=== PATIENT | female | born 1960 | race American Indian/Alaskan Native ===

== ENCOUNTER 2016-08-27 03:38 | Inpatient (IN) | payer MEDICARE ==
[2016-08-27] MEDS ORDERED: TYLENOL PO ONE (03:48)
--- NOTE | 2016-08-27 04:00 | Emergency Department Report ---
HPI - General Chief Complaint: Dyspnea/Respdistress Time Seen by Provider: 08/27/16 03:50 - HPI HPI: Room 23 The patient is a 56-year-old female presenting with a chief complaint of shortness of breath. Patient states her symptoms began 3 days ago with shortness of breath and productive cough. Patient denies chest pain. EMS reports the patient had a syncopal episode today secondary to her shortness of breath. EMS was called and patient was placed on CPAP. In the ED the patient continues complaint of shortness of breath Location: Lungs Duration: 3 days Quality: Shortness of breath Severity: Severe Modifying factors: [see above] Context: [see above] Mode of transportation: [not driving] ED Past Medical Hx - Past Medical History Previous Medical History?: Yes Hx Hypertension: Yes Hx Diabetes: Yes (medically induced per pt) Hx GERD: Yes Hx Renal Disease: Yes (acute on chronic renal insufficiency) Hx Asthma: Yes Hx COPD: Yes (2 L O2) Hx HIV: No Additional medical history: pneumonia - Surgical History Past Surgical History?: No - Family History Family history: no significant - Social History Smoking Status: Former Smoker Substance Use Type: None - Medications Home Medications: Home Medications Medication Instructions Recorded Confirmed Last Taken Type ALPRAZolam [Xanax TAB] 0.5 mg PO TID PRN 08/27/16 08/27/16 08/27/16 History Citalopram [celeXA] 20 mg PO QDAY 08/27/16 08/27/16 08/27/16 History Ibuprofen [Motrin] 800 mg PO Q8HR PRN 08/27/16 08/27/16 08/27/16 History Meloxicam 15 mg PO QDAY 08/27/16 08/27/16 08/27/16 History Montelukast [Singulair] 10 mg PO QPM 08/27/16 08/27/16 08/27/16 History Verapamil ER [Calan Sr] 240 mg PO QDAY 08/27/16 08/27/16 08/27/16 History predniSONE [Deltasone] 10 mg PO QDAY 08/27/16 08/27/16 08/27/16 History ED Review of Systems ROS: Stated complaint: TERENCE Other details as noted in HPI Comment: All other systems reviewed and negative Constitutional: fever Eyes: denies: eye pain, eye discharge, vision change Respiratory: cough, shortness of breath Cardiovascular: denies: chest pain Endocrine: no symptoms reported Gastrointestinal: denies: abdominal pain, nausea, diarrhea Genitourinary: dysuria. denies: urgency, discharge Musculoskeletal: denies: back pain, joint swelling, arthralgia Skin: denies: rash, lesions Neurological: other (syncope) Psychiatric: denies: anxiety, depression Hematological/Lymphatic: as per HPI Physical Exam - Physical Exam Vital Signs: Vital Signs 08/27/16 03:40 Temperature 100.1 F H Pulse Rate 146 H Respiratory 20 Rate Blood Pressure 120/53 O2 Sat by Pulse 100 Oximetry Physical Exam: GENERAL: The patient is well-developed well-nourished female lying on stretcher with CPAP in place with obvious respiratory distress HEENT: Normocephalic. Atraumatic. Extraocular motions are intact. NECK: Supple. No meningitic signs are noted. There is no adenopathy noted. CHEST/LUNGS: Rhonchi throughout. Moderate respiratory distress HEART/CARDIOVASCULAR: Regular. There is tachycardia. There is no gallop rub or murmur. ABDOMEN: Abdomen is soft, nontender. Patient has normal bowel sounds. There is no abdominal distention. SKIN: There is no rash. There is no edema. There is no diaphoresis. NEURO: The patient is awake, alert, and oriented. The patient is cooperative. The patient has normal speech MUSCULOSKELETAL: There is no evidence of acute injury. ED Course Vital Signs 08/27/16 03:40 Temperature 100.1 F H Pulse Rate 146 H Respiratory 20 Rate Blood Pressure 120/53 O2 Sat by Pulse 100 Oximetry - Reevaluation(s) Reevaluation #1: 08/27/16 04:21 Patient states she feels improved. Patient on BiPAP texting on cell phone ED Medical Decision Making - Lab Data Result diagrams: 08/27/16 03:55 08/27/16 03:55 Laboratory Tests 08/27/16 08/27/16 08/27/16 03:55 03:55 03:55 WBC 9.4 RBC 4.76 Hgb 12.7 Hct 40.0 MCV 84 MCH 27 L MCHC 32 RDW 15.3 H Plt Count 228 Lymph % (Auto) 7.6 L [place] % (Auto) 3.5 Eos % (Auto) 0.3 Baso % (Auto) 0.4 Lymph # 0.7 L [place] # 0.3 Eos # 0.0 Baso # 0.0 Seg Neutrophils % 88.2 H Seg Neutrophils # 8.3 H PT 13.6 INR 1.05 APTT 29.3 Sodium 140 Potassium 3.6 Chloride 98.1 Carbon Dioxide 29 Anion Gap 17 BUN 19 H Creatinine 0.7 Estimated GFR > 60 BUN/Creatinine Ratio 27.14 Glucose 137 H Calcium 7.9 L Total Creatine Kinase CK-MB (CK-2) CK-MB (CK-2) Rel Index Troponin T 0.072 H NT-Pro-B Natriuret Pep 08/27/16 03:55 WBC RBC Hgb Hct MCV MCH MCHC RDW Plt Count Lymph % (Auto) [place] % (Auto) Eos % (Auto) Baso % (Auto) Lymph # [place] # Eos # Baso # Seg Neutrophils % Seg Neutrophils # PT INR APTT Sodium Potassium Chloride Carbon Dioxide Anion Gap BUN Creatinine Estimated GFR BUN/Creatinine Ratio Glucose Calcium Total Creatine Kinase 248 H CK-MB (CK-2) 4.7 H CK-MB (CK-2) Rel Index 1.8 Troponin T NT-Pro-B Natriuret Pep 1037 H - EKG Data -: EKG Interpreted by Me EKG shows normal: sinus rhythm Rate: tachycardia (146 bpm) - EKG Data When compared to previous EKG there are: no significant change Interpretation: unchanged when compared t (12/18/2013) - Radiology Data Radiology results: image reviewed (chest x-ray) interpreted by me: Chest x-ray-right lower lobe atelectasis/possible early infiltrate - Differential Diagnosis pneumonia, COPD exacerbation, UTI, PE Critical care attestation.: If time is entered above; I have spent that time in minutes in the direct care of this critically ill patient, excluding procedure time. ED Disposition Clinical Impression: COPD exacerbation, Sinus tachycardia, Shortness of breath, CHF (congestive heart failure), Elevated troponin Disposition: OP ADMITTED IP TO THIS HOSP Is pt being admited?: Yes Does the pt Need Aspirin: Yes Condition: Serious Instructions: Chronic Obstructive Pulmonary Disease (ED) Referrals: PRIMARY CARE, [Primary Care Provider] - 3-5 Days Time of Disposition: 04:56 (case discussed with Dr. Cummins. CT chest pending)
[2016-08-27] MEDS ORDERED: NACL 0.9% 1000 ML 1,000 ML IV ONE (04:21)
[2016-08-27 04:22] LABS: Basophils % (Auto) 0.4 % (0.0-1.8); Eosinophils % (Auto) 0.3 % (0.0-4.3); Hemoglobin 12.7 gm/dl (10.1-14.3); Mean Corpuscular HGB Conc 32 % (30-34); Mean Corpuscular Hemoglobin 27 pg (28-32); Mean Corpuscular Volume 84 fl (79-97); Platelet Count 228 K/mm3 (140-440); Red Blood Count 4.76 M/mm3 (3.65-5.03); Red Cell Distribution Width 15.3 % (13.2-15.2); White Blood Count 9.4 K/mm3 (4.5-11.0)
[2016-08-27 04:31] LABS: INR 1.05 (0.87-1.13)
[2016-08-27 04:32] LABS: Partial Thromboplastin Time 29.3 Sec. (24.2-36.6)
[2016-08-27 04:41] LABS: Anion Gap 17 mmol/L; BUN/Creatinine Ratio 27.14; Blood Urea Nitrogen 19 mg/dL (7-17); Calcium 7.9 mg/dL (8.4-10.2); Carbon Dioxide 29 mmol/L (22-30); Chloride 98.1 mmol/L (98-107); Glucose 137 mg/dL (65-100); Potassium 3.6 mmol/L (3.6-5.0); Sodium 140 mmol/L (137-145)
[2016-08-27 04:43] LABS: Creatine Kinase MB 4.7 ng/mL (0.0-4.0)
[2016-08-27] MEDS ORDERED: NACL ONE (04:47)
[2016-08-27] MEDS ORDERED: ASPIRIN PO ONE (04:57)
[2016-08-27 06:00] LABS: Cholesterol 122 mg/dL (50-199); HDL Cholesterol 49 mg/dL (40-59); LDL Cholesterol,Direct 60 mg/dL (50-130); Triglycerides 65 mg/dL (2-149)
[2016-08-27] MEDS ORDERED: ZOFRAN IV PRN (06:24)
[2016-08-27] MEDS ORDERED: MILK OF MAGNESIA PO PRN (06:24)
[2016-08-27] MEDS ORDERED: DULCOLAX PR PRN (06:24)
[2016-08-27] MEDS ORDERED: TYLENOL PO PRN (06:24)
[2016-08-27] MEDS ORDERED: PERCOCET 5/325 PO PRN (06:24)
[2016-08-27 06:33] LABS: ISTAT Base Excess 4; ISTAT HCO3 30.5; ISTAT PCO2 61.7 (35-45); ISTAT PH 7.301 (7.35-7.45); ISTAT PO2 113 (80-105); ISTAT SO2 98; ISTAT TCO2 32
[2016-08-27] MEDS ORDERED: DUONEB 0.5 MG-3 MG/3 ML SOLN IH PRN (06:34)
[2016-08-27] MEDS ORDERED: MOTRIN PO PRN (06:36)
[2016-08-27] MEDS ORDERED: PROVENTIL IH PRN (06:45)
[2016-08-27] MEDS ORDERED: SODIUM CHLORIDE FLUSH SYRINGE 10 ML IV PRN (06:48)
--- NOTE | 2016-08-27 06:48 | Event Note ---
Date: 08/27/16 See H/p in reports Acuye resp failure with hypercapnia Copd exacerbation HTN Syncope High Troponin High BNP THONG Depression Check Stress test and Echo
--- NOTE | 2016-08-27 06:59 | Cat Scan Report ---
FINAL REPORT EXAM: CT ANGIO CHEST HISTORY: shortness of breath, tachycardia, syncope TECHNIQUE: CT angiography of the chest was performed. 100 cc Omnipaque 350 IV was administered. Coronal and sagittal reformatted images were obtained. PRIORS: 12/21/2013 FINDINGS: There is no aortic dissection seen. There are no filling defects seen within the pulmonary arterial circulation to suggest pulmonary embolism. There is no significant mediastinal or hilar mass seen. There is marked emphysema. There is a spiculated mass in the left upper lobe which is concerning for malignancy. It measures about 1.7 x 1.5 cm. There is some scarring versus atelectasis in the lateral aspect of the right upper lobe. This is a new finding. There atelectasis of the right middle lobe.. I cannot exclude endobronchial lesion. There is no pleural effusion or pneumothorax seen. Upper abdominal images demonstrate a nonspecific right adrenal gland mass. It measures 1.9 cm largest dimension, enlarged from 1.5 cm. There is likely cholelithiasis. IMPRESSION: There is no pulmonary embolism or aortic dissection seen. 1.7 x 1.5 cm spiculated mass in the left upper lobe is concerning for malignancy. There is right middle lobe atelectasis. This raises concern for endobronchial lesion. Marked emphysema. 1.9 cm right adrenal gland mass is slightly larger as compared to the prior. This is nonspecific. Probable cholelithiasis.
--- NOTE | 2016-08-27 07:08 | Admit Criteria Form ---
Admission Criteria Documentation: RESPIRATORY FAILURE GRG Clinical Indications for Admission to Inpatient Care (Place 'X' for any and all applicable criteria): Hospital admission is needed for appropriate care of the patient because of acute respiratory failure or insufficiency as indicated by ANY ONE of the following(1)(2)(3)(4)(5)(6)(7)(8): [X]I. Mechanical ventilation needed (acute invasive or noninvasive) [X]II. Severe ventilation deficit as indicated by ANY ONE of the following (9) [X]a) Respiratory acidosis (pH less than 7.32 and partial pressure of carbon dioxide greater than 40 mm Hg (5.3 kPa)) [X]b) Partial pressure of carbon dioxide greater than 44 mm Hg (5.9 kPa ) (new) [ ]c) Airflow measurements less than 25% of predicted (eg, peak expiratory flow rate less than 100 L/minute) [ ]d) Forced vital capacity less than 15 mL/kg of ideal body weight, or 50% decrease in vital capacity from baseline [ ]III. Noncardiac pulmonary edema not resolving with rapid emergency treatment (8) [ ]IV. Severe respiratory distress as indicated by ANY ONE of the following: [ ]a) Severe tachypnea (respiratory rate greater than 30, greater than 45 for 6-month-old, greater than 60 for ) [ ]b) Severe hypoxemia (partial pressure of oxygen less than 50 mm Hg ( 6.7 kPa) on greater than 50% oxygen or partial pressure of oxygen to FIO2 ratio less than 200) [ ]c) Mental status deterioration from respiratory disease [ ]V. Airway obstruction or inadequate protection [A](10)(11) The original [employer] content created by [employer] has been revised. The portions of the content which have been revised are identified through the use of italic text or in bold, and [facility] [employer] has neither reviewed nor approved the modified material. All other unmodified content is copyright [employer]. Please see references footnoted in the original [employer] edition 2016 Admission Criteria Met: Yes
[2016-08-27 07:34] LABS: Bilirubin,Urine NEG (Negative); Blood,Urine NEG (Negative); Granular Casts,Urine 3 /LPF; Ketones,Urine NEG (Negative); Leukocyte Esterase,Urine NEG (Negative); Mucus,Urine FEW /HPF; Nitrite,Urine NEG (Negative); Urobilinogen,Urine < 2.0 mg/dL (<2.0)
[2016-08-27] MEDS ORDERED: DUONEB 0.5 MG-3 MG/3 ML SOLN IH ONE (08:18)
--- NOTE | 2016-08-27 08:43 | History and Physical Report ---
CHIEF COMPLAINT: Increasing shortness of breath for 3 days. HISTORY OF PRESENT ILLNESS: A 56-year-old -[place] female with history of hypertension and COPD currently smoker comes in for increasing shortness of breath of three days' duration. Cough productive of mucoid sputum. No fever. No chills. Increasing wheezing for the last 3 days. The patient apparently passed out for a couple of seconds secondary to shortness of breath. No chest pain. No exacerbating or relieving factors. The patient has been using bronchodilators, but no relief. PAST MEDICAL HISTORY: As mentioned hypertension, medically-induced diabetes, probably steroid induced, gastroesophageal reflux disease, asthma, and pneumonia in the past. PAST SURGICAL HISTORY: None. FAMILY HISTORY: Hypertension. SOCIAL HISTORY: Smokes about half a pack a day. CURRENT MEDICATIONS: Xanax 0.5 three times a day, meloxicam 15 mg once a day, Singulair 10 mg p.o. daily, verapamil 240 mg p.o. daily, prednisone, and Deltasone 10 mg p.o. daily. REVIEW OF SYSTEMS: No fever. No chills. No weight loss. No weight gain. HEENT: No sore throat. No postnasal drip. CARDIOVASCULAR AND RESPIRATORY SYSTEM: As mentioned in history of present illness increasing shortness of breath for the last 3 days. Cough productive of mucoid sputum. No chest pain. Syncope one episode. GI: No nausea. No vomiting. No diarrhea. MUSCULOSKELETAL: No joint pains. CENTRAL NERVOUS SYSTEM: syncope one episode. NEUROLOGIC: No focal deficits. SKIN: No rashes. LYMPHATIC SYSTEM: No easy bruising. No lymphedema. PSYCHIATRIC: No depression. No anxiety. A 14-point review of systems was done. PHYSICAL EXAMINATION: GENERAL: Middle-aged female cooperative during examination, on BiPAP in the Emergency Room. VITAL SIGNS: Temperature is 100.1, pulse is 146, respirations 20, blood pressure is 120/53, and sats 100%. HEENT: Unremarkable. Pupils equal and reactive. NECK: Supple. Accessory muscles of respiration are prominent. LUNGS: Bilateral inspiratory and expiratory rhonchi present. Good air entry. CARDIOVASCULAR: S1 and S2 heard. No gallop. No murmur. No rub. Apical impulse in left fifth intercostal space and midclavicular line. ABDOMEN: Soft and benign. No hepatosplenomegaly. No guarding. No rigidity. Hernial orifices are normal. EXTREMITIES: Good pedal pulses. No pedal edema. CENTRAL NERVOUS SYSTEM: Alert and oriented x 4. Nonfocal exam. SKIN: Normal. LABORATORY DATA: White count is 9400, H and H is 12.7 and 40.2, and platelet count is 228,000. Blood gas significant for pH of 7.30, pCO2 of 61.7, pO2 113, bicarb of 30.5, sodium 140, potassium of 3.6, chloride of 98.1, bicarbonate 29, BUN and creatinine 19 and 0.7, glucose is 137, calcium 7.9, troponin 0.072, BNP is 1037, and TSH is 0.244. Free T4 was 1.28. EKG shows sinus tachycardia. Heart rate of 146 per minute. Left axis deviation. ST or T-wave abnormalities. Confidential acute ischemia. ASSESSMENT AND PLAN: 1. Acute respiratory failure with hypercapnia. Continue BiPAP. Continue DuoNeb q.6 [id number] and q.3 p.r.n. and also IV Solu-Medrol 60 mg q.8 and IV Levaquin 750 mg q.24. 2. Chronic obstructive pulmonary disease with exacerbation. Same as above. Continue bronchodilators, antibiotics, and steroids. 3. Hypertension. Continue verapamil 240 mg p.o. daily. 4. Asthma. Continue Singulair 10 mg p.o. q. p.m. 5. Depression. Continue citalopram 20 mg p.o. daily. 6. Anxiety disorder. Continue Xanax 0.5 t.i.d. 7. Arthritis. Continue Meloxicam 15 mg p.o. daily. 8. Syncope secondary to vasovagal and secondary to pressured acute respiratory failure. We will check only carotid duplex scan. No stress test at this point. 9. Nicotine dependence and NicoDerm past. 10. Deep venous thrombosis prophylaxis, Lovenox 40 mg subcutaneous daily. JOB# [id number] VSM/NTS
[2016-08-27 08:47] LABS: Creatine Kinase MB 6.5 ng/mL (0.0-4.0)
[2016-08-27] MEDS: DUONEB 0.5 MG-3 MG/3 ML SOLN IH SCH ×3 (09:19→19:44)
--- NOTE | 2016-08-27 09:34 | Event Note ---
Date: 08/27/16 Patient with COPD on home oxygen presents with shortness of breath. She is diagnosed with acute on chronic respiratory failure secondary to COPD exacerbation. She also has elevated troponin but stress test cannot be done today because she is on BiPAP. She was seen and examined. She is currently on BiPAP. Pulmonology consulted. We will also consult cardiology.
[2016-08-27] MEDS: LEVAQUIN 750MG/150ML 750 MG/150 ML BAG IV SCH (11:15)
[2016-08-27] MEDS: celeXA PO SCH (13:27)
--- NOTE | 2016-08-27 13:31 | Event Note ---
Date: 08/27/16 Pt states she has been seen in the past in clinic by Dr. Garcia. Consult deferred. [facility] notified. Mitchell OVALLE NP / DR. SMITH
[2016-08-27 14:11] LABS: Creatine Kinase MB 5.7 ng/mL (0.0-4.0)
--- NOTE | 2016-08-27 15:32 | Consultation ---
History of Present Illness Consult date: 08/27/16 Consult reason: elevated troponin History of present illness: This is a 56yr old woman with a history of Sleep apnea noncompliant with her Cpap machine, COPD on home oxygen and Hypertension. Patient also continues to smoke. She was brought in with shortness of breath requiring Bipap therapy. Daughter at bedside reports the patient shortness of breath has progressively worsened over the last few days. This morning, daughter at bedside states the patient could not catch her breath and had a syncopal episode. Cardiac consultation is requested for mild elevation of troponin of 0.07. Cardiac enzymes are normal with a CK/MB of 4.7 and relative index of 1.8. A 12 lead ECG done on presentation shows a sinus tachycardiac with PACs. She denies chest pain. There is no prior cardiac history or recent cardiac workup. A persantine thallium stress was ordered by the primary team for today but this was held as the patient remains on bipap therapy. Past History Past Medical History: COPD Medications and Allergies Allergies Allergy/AdvReac Type Severity Reaction Status Date / Time No Known Allergies Allergy Verified 08/27/16 03:49 Home Medications Medication Instructions Recorded Confirmed Last Taken Type ALPRAZolam [Xanax TAB] 0.5 mg PO TID PRN 08/27/16 08/27/16 08/27/16 History Citalopram [celeXA] 20 mg PO QDAY 08/27/16 08/27/16 08/27/16 History Ibuprofen [Motrin] 800 mg PO Q8HR PRN 08/27/16 08/27/16 08/27/16 History Meloxicam 15 mg PO QDAY 08/27/16 08/27/16 08/27/16 History Montelukast [Singulair] 10 mg PO QPM 08/27/16 08/27/16 08/27/16 History Verapamil ER [Calan Sr] 240 mg PO QDAY 08/27/16 08/27/16 08/27/16 History predniSONE [Deltasone] 10 mg PO QDAY 08/27/16 08/27/16 08/27/16 History Active Meds: Active Medications Acetaminophen (Tylenol) 650 mg PO Q4H PRN PRN Reason: Pain MILD(1-3)/Fever >100.5/BLISS Albuterol (Proventil) 2.5 mg IH Q3HRT PRN PRN Reason: Wheezing Albuterol/Ipratropium (Duoneb 0.5 Mg-3 Mg/3 Ml Soln) 1 ampul IH Q6HRT [facility] Last Admin: 08/27/16 14:33 Dose: 1 ampul Alprazolam (Xanax) 0.5 mg PO TID PRN PRN Reason: Anxiety Bisacodyl (Dulcolax) 10 mg MT QDAY PRN PRN Reason: Constipation unrelieved by MOM Citalopram Hydrobromide (Celexa) 20 mg PO QDAY [facility] Last Admin: 08/27/16 13:27 Dose: 20 mg Hydromorphone HCl (Dilaudid) 0.5 mg IV Q3H PRN PRN Reason: Pain , Severe (7-10) Levofloxacin/Dextrose (Levaquin 750mg/150ml) 750 mg in 150 mls @ 100 mls/hr IV Q24HR [facility] PRN Reason: Protocol Last Admin: 08/27/16 11:15 Dose: 100 mls/hr Ibuprofen (Motrin) 800 mg PO Q8HR PRN PRN Reason: Pain Magnesium Hydroxide (Milk Of Magnesia) 30 ml PO Q4H PRN PRN Reason: Constipation Methylprednisolone Sodium Succinate (Solu-Medrol) 60 mg IV Q8HR [facility] Last Admin: 08/27/16 13:27 Dose: 60 mg Montelukast Sodium (Singulair) 10 mg PO QPM [facility] Ondansetron HCl (Zofran) 4 mg IV Q8H PRN PRN Reason: N/V unrelieved by Reglan Oxycodone/Acetaminophen (Percocet 5/325) 1 tab PO Q6H PRN PRN Reason: Pain, Moderate (4-6) Sodium Chloride (Sodium Chloride Flush Syringe 10 Ml) 10 ml IV PRN PRN PRN Reason: LINE FLUSH Verapamil HCl (Calan Sr) 240 mg PO QDAY [facility] Zolpidem Tartrate (Ambien) 5 mg PO QHS PRN PRN Reason: Insomnia Physical Examination Vital Signs Pulse Ox 96 08/27/16 03:34 General appearance: no acute distress HEENT: Positive: PERRL Neck: Positive: trachea midline Cardiac: Positive: Reg Rate and Rhythm Results 08/27/16 03:55 08/27/16 03:55 Cardiac Enzymes 05/01/17 05/01/17 Range/Units 08:13 13:17 CK-MB (CK-2) 6.5 H 5.7 H (0.0-4.0) ng/mL Assessment and Plan Acute respiratory failure COPD exacerbation on home oxygen Syncope likely vasovagal s/t respiratory failure Hypertension Nonspecific elevated troponin Left upper lobe mass Recommendations: We will get an echocardiogram for LVEF assessment. Pulmonary evaluation and treatment.
[2016-08-27] MEDS: SINGULAIR PO SCH (17:11)
[2016-08-27] MEDS: CALAN SR PO SCH (17:11)
[2016-08-27] MEDS: LOVENOX SUB-Q SCH (21:20)
[2016-08-28] MEDS: DUONEB 0.5 MG-3 MG/3 ML SOLN IH SCH ×4 (02:27→20:25)
[2016-08-28 05:50] LABS: Hematocrit 38.6 % (30.3-42.9); Hemoglobin 12.2 gm/dl (10.1-14.3); Mean Corpuscular HGB Conc 32 % (30-34); Mean Corpuscular Hemoglobin 27 pg (28-32); Mean Corpuscular Volume 84 fl (79-97); Platelet Count 208 K/mm3 (140-440); Red Blood Count 4.61 M/mm3 (3.65-5.03); Red Cell Distribution Width 15.7 % (13.2-15.2); White Blood Count 8.1 K/mm3 (4.5-11.0)
[2016-08-28 06:13] LABS: Albumin 3.5 g/dL (3.9-5); Alkaline Phosphatase 57 units/L (35-129); Anion Gap 16 mmol/L; BUN/Creatinine Ratio 34.28; Bilirubin,Total < 0.20 mg/dL (0.1-1.2); Blood Urea Nitrogen 24 mg/dL (7-17); Calcium 8.5 mg/dL (8.4-10.2); Carbon Dioxide 31 mmol/L (22-30); Chloride 101.6 mmol/L (98-107); Glucose 156 mg/dL (65-100); Sodium 144 mmol/L (137-145); Total Protein 6.9 g/dL (6.3-8.2)
[2016-08-28 06:42] LABS: Alanine Aminotransferase < 5 units/L (7-56); Potassium 4.7 mmol/L (3.6-5.0)
[2016-08-28 07:31] LABS: Anisocytosis 1+; Basophils % (Manual) 0 % (0.0-1.8); Blastocytes % (Manual) 0 %; Diff Status Complete; Eosinophils % (Manual) 0 % (0.0-4.3); Polychromasia Few
[2016-08-28] MEDS: LEVAQUIN 750MG/150ML 750 MG/150 ML BAG IV SCH (10:06)
[2016-08-28] MEDS: celeXA PO SCH (10:16)
--- NOTE | 2016-08-28 11:22 | Progress Note ---
Assessment and Plan Acute respiratory failure COPD exacerbation on home oxygen Syncope likely vasovagal s/t respiratory failure Hypertension Nonspecific elevated troponin Spiculated Left upper lobe mass concerning for malignancy Tobacco abuse Recommendations: We will get an echocardiogram. Pulmonary evaluation and treatment. Otherwise, conservative cardiac management. Subjective Date of service: 08/28/16 Interval history: Patient remains on Bipap therapy. Objective Vital Signs Temp Pulse Pulse Pulse Resp Resp BP 08/28/16 09:00 89 32 H 132/56 08/28/16 08:54 08/28/16 08:45 97.6 F 92 H 18 08/28/16 08:30 99 H 18 08/28/16 08:29 99 H 18 08/28/16 04:00 98.1 F 101 H 18 08/28/16 02:37 87 20 08/28/16 02:27 87 19 08/28/16 02:00 105 H 08/28/16 00:18 98.2 F 133 H 18 08/27/16 20:00 97.8 F 99 H 18 08/27/16 19:57 103 H 20 08/27/16 19:51 96 H 20 08/27/16 19:48 96 H 16 08/27/16 17:56 97.5 F L 96 H 18 BP Pulse Ox 08/28/16 09:00 90 08/28/16 08:54 96 08/28/16 08:45 125/79 95 08/28/16 08:30 97 08/28/16 08:29 08/28/16 04:00 123/79 97 08/28/16 02:37 08/28/16 02:27 08/28/16 02:00 08/28/16 00:18 131/105 97 08/27/16 20:00 127/72 98 08/27/16 19:57 08/27/16 19:51 97 08/27/16 19:48 08/27/16 17:56 127/77 100 - Physical Examination General: No Apparent Distress HEENT: Positive: PERRL Neck: Positive: trachea midline Cardiac: Positive: Reg Rate and Rhythm Lungs: Positive: Decreased Breath Sounds, Wheezes - Labs and Meds Cardiac Enzymes 08/27/16 08/28/16 Range/Units 13:17 04:33 AST 24 (5-40) units/L CK-MB (CK-2) 5.7 H (0.0-4.0) ng/mL CBC 08/28/16 Range/Units 04:33 WBC 8.1 (4.5-11.0) K/mm3 RBC 4.61 (3.65-5.03) M/mm3 Hgb 12.2 (10.1-14.3) gm/dl Hct 38.6 (30.3-42.9) % Plt Count 208 (140-440) K/mm3 Comprehensive Metabolic Panel 08/28/16 Range/Units 04:33 Sodium 144 (137-145) mmol/L Potassium 4.7 D (3.6-5.0) mmol/L Chloride 101.6 (98-107) mmol/L Carbon Dioxide 31 H (22-30) mmol/L BUN 24 H (7-17) mg/dL Creatinine 0.7 (0.7-1.2) mg/dL Glucose 156 H (65-100) mg/dL Calcium 8.5 (8.4-10.2) mg/dL AST 24 (5-40) units/L ALT < 5 L (7-56) units/L Alkaline Phosphatase 57 (35-129) units/L Total Protein 6.9 (6.3-8.2) g/dL Albumin 3.5 L (3.9-5) g/dL
[2016-08-28] MEDS: CALAN SR PO SCH (13:08)
--- NOTE | 2016-08-28 13:11 | Progress Note ---
Assessment and Plan Assessment and plan: COPD exacerbation SAMMY Sleep apnea Elevated troponin - COPD exacerbation management - Cardiology consult appreciated - Echo is pending - Patient placement - Pulmonary consult Disposition - We'll discharge once patient is stable. History Interval history: Patient was seen and evaluated this morning, patient's left breast is getting better, she still feels winded. His CPAP machine. Hospitalist Physical - Physical exam Narrative exam: In moderate respiratory distress. The patient appeared well nourished and normally developed. Vital signs as documented. Head exam is unremarkable. No scleral icterus . Neck is without jugular venous distension, thyromegaly, or carotid bruits. Lungs wheezing all over the chest. Cardiac exam reveals regular rate and Rhythm. First and second heart sounds normal. No murmurs, rubs or gallops. Abdominal exam reveals normal bowel sounds, no masses, no organomegaly and no aortic enlargement. Extremities are nonedematous and both femoral and pedal pulses are normal. 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 No focal weakness. - Constitutional Vitals: Temp Pulse Resp BP Pulse Ox 97.7 F 88 18 157/86 96 08/28/16 12:59 08/28/16 12:59 08/28/16 12:59 08/28/16 12:59 08/28/16 12:59 General appearance: Present: no acute distress Results - Labs CBC & Chem 7: 08/28/16 04:33 08/28/16 04:33 Labs: Laboratory Last Values WBC 8.1 K/mm3 (4.5-11.0) 08/28/16 04:33 RBC 4.61 M/mm3 (3.65-5.03) 08/28/16 04:33 Hgb 12.2 gm/dl (10.1-14.3) 08/28/16 04:33 Hct 38.6 % (30.3-42.9) 08/28/16 04:33 MCV 84 fl (79-97) 08/28/16 04:33 MCH 27 pg (28-32) L 08/28/16 04:33 MCHC 32 % (30-34) 08/28/16 04:33 RDW 15.7 % (13.2-15.2) H 08/28/16 04:33 Plt Count 208 K/mm3 (140-440) 08/28/16 04:33 Lymph % (Auto) 7.6 % (13.4-35.0) L 08/27/16 03:55 [place] % (Auto) 3.5 % (0.0-7.3) 08/27/16 03:55 Eos % (Auto) 0.3 % (0.0-4.3) 08/27/16 03:55 Baso % (Auto) 0.4 % (0.0-1.8) 08/27/16 03:55 Lymph # 0.7 K/mm3 (1.2-5.4) L 08/27/16 03:55 [place] # 0.3 K/mm3 (0.0-0.8) 08/27/16 03:55 Eos # 0.0 K/mm3 (0.0-0.4) 08/27/16 03:55 Baso # 0.0 K/mm3 (0.0-0.1) 08/27/16 03:55 Add Manual Diff Complete 08/28/16 04:33 Total Counted 100 08/28/16 04:33 Seg Neutrophils % Patient Access Manager 08/28/16 04:33 Seg Neuts % (Manual) 87.0 % (40.0-70.0) H 08/28/16 04:33 Band Neutrophils % 10.0 % 08/28/16 04:33 Lymphocytes % (Manual) 2.0 % (13.4-35.0) L 08/28/16 04:33 Reactive Lymphs % (Man) 1.0 % 08/28/16 04:33 Monocytes % (Manual) 0 % (0.0-7.3) 08/28/16 04:33 Eosinophils % (Manual) 0 % (0.0-4.3) 08/28/16 04:33 Basophils % (Manual) 0 % (0.0-1.8) 08/28/16 04:33 Metamyelocytes % 0 % 08/28/16 04:33 Myelocytes % 0 % 08/28/16 04:33 Promyelocytes % 0 % 08/28/16 04:33 Blast Cells % 0 % 08/28/16 04:33 Nucleated RBC % Not Reportable 08/28/16 04:33 Seg Neutrophils # 8.3 K/mm3 (1.8-7.7) H 08/27/16 03:55 Seg Neutrophils # Man 7.0 K/mm3 (1.8-7.7) 08/28/16 04:33 Band Neutrophils # 0.8 K/mm3 08/28/16 04:33 Lymphocytes # (Manual) 0.2 K/mm3 (1.2-5.4) L 08/28/16 04:33 Abs React Lymphs (Man) 0.1 K/mm3 08/28/16 04:33 Monocytes # (Manual) 0.0 K/mm3 (0.0-0.8) 08/28/16 04:33 Eosinophils # (Manual) 0.0 K/mm3 (0.0-0.4) 08/28/16 04:33 Basophils # (Manual) 0.0 K/mm3 (0.0-0.1) 08/28/16 04:33 Metamyelocytes # 0.0 K/mm3 08/28/16 04:33 Myelocytes # 0.0 K/mm3 08/28/16 04:33 Promyelocytes # 0.0 K/mm3 08/28/16 04:33 Blast Cells # 0.0 K/mm3 08/28/16 04:33 WBC Morphology Not Reportable 08/28/16 04:33 Hypersegmented Neuts Not Reportable 08/28/16 04:33 Hyposegmented Neuts Not Reportable 08/28/16 04:33 Hypogranular Neuts Not Reportable 08/28/16 04:33 Smudge Cells Not Reportable 08/28/16 04:33 Toxic Granulation Not Reportable 08/28/16 04:33 Toxic Vacuolation Not Reportable 08/28/16 04:33 Dohle Bodies Not Reportable 08/28/16 04:33 Pelger-Huet Anomaly Not Reportable 08/28/16 04:33 José Miguel Rods Not Reportable 08/28/16 04:33 Platelet Estimate Appears normal 08/28/16 04:33 Clumped Platelets Not Reportable 08/28/16 04:33 Plt Clumps, EDTA Not Reportable 08/28/16 04:33 Large Platelets Not Reportable 08/28/16 04:33 Giant Platelets Not Reportable 08/28/16 04:33 Platelet Satelliting Not Reportable 08/28/16 04:33 Plt Morphology Comment Not Reportable 08/28/16 04:33 RBC Morphology Not Reportable 08/28/16 04:33 Dimorphic RBCs Not Reportable 08/28/16 04:33 Polychromasia Few 08/28/16 04:33 Hypochromasia Not Reportable 08/28/16 04:33 Poikilocytosis Not Reportable 08/28/16 04:33 Anisocytosis 1+ 08/28/16 04:33 Microcytosis Not Reportable 08/28/16 04:33 Macrocytosis Not Reportable 08/28/16 04:33 Spherocytes Not Reportable 08/28/16 04:33 Pappenheimer Bodies Not Reportable 08/28/16 04:33 Sickle Cells Not Reportable 08/28/16 04:33 Target Cells Not Reportable 08/28/16 04:33 Tear Drop Cells Not Reportable 08/28/16 04:33 Ovalocytes Not Reportable 08/28/16 04:33 Helmet Cells Not Reportable 08/28/16 04:33 [place] Bodies Not Reportable 08/28/16 04:33 [place] Rings Not Reportable 08/28/16 04:33 [place] Cells Not Reportable 08/28/16 04:33 Bite Cells Not Reportable 08/28/16 04:33 Crenated Cell Not Reportable 08/28/16 04:33 Elliptocytes Not Reportable 08/28/16 04:33 Acanthocytes (Spur) Not Reportable 08/28/16 04:33 Rouleaux Not Reportable 08/28/16 04:33 Hemoglobin C Crystals Not Reportable 08/28/16 04:33 Schistocytes Not Reportable 08/28/16 04:33 Mal[place] parasites Not Reportable 08/28/16 04:33 [place] Bodies Not Reportable 08/28/16 04:33 Hem Pathologist Commnt No 08/28/16 04:33 PT 13.6 Sec. (12.2-14.9) 08/27/16 03:55 INR 1.05 (0.87-1.13) 08/27/16 03:55 APTT 29.3 Sec. (24.2-36.6) 08/27/16 03:55 POC ABG pH 7.301 (7.35-7.45) L 08/27/16 04:29 POC ABG pCO2 61.7 (35-45) H 08/27/16 04:29 POC ABG pO2 113 (80-105) H 08/27/16 04:29 POC ABG HCO3 30.5 08/27/16 04:29 POC ABG Total CO2 32 08/27/16 04:29 POC ABG O2 Sat 98 08/27/16 04:29 POC ABG Base Excess 4 08/27/16 04:29 FiO2 50 % 08/27/16 04:29 Sodium 144 mmol/L (137-145) 08/28/16 04:33 Potassium 4.7 mmol/L (3.6-5.0) D 08/28/16 04:33 Chloride 101.6 mmol/L (98-107) 08/28/16 04:33 Carbon Dioxide 31 mmol/L (22-30) H 08/28/16 04:33 Anion Gap 16 mmol/L 08/28/16 04:33 BUN 24 mg/dL (7-17) H 08/28/16 04:33 Creatinine 0.7 mg/dL (0.7-1.2) 08/28/16 04:33 Estimated GFR > 60 ml/min 08/28/16 04:33 BUN/Creatinine Ratio 34.28 % 08/28/16 04:33 Glucose 156 mg/dL (65-100) H 08/28/16 04:33 Hemoglobin A1c 6.2 % (4-6) H 08/27/16 03:55 Calcium 8.5 mg/dL (8.4-10.2) 08/28/16 04:33 Total Bilirubin < 0.20 mg/dL (0.1-1.2) 08/28/16 04:33 AST 24 units/L (5-40) 08/28/16 04:33 ALT < 5 units/L (7-56) L 08/28/16 04:33 Alkaline Phosphatase 57 units/L (35-129) 08/28/16 04:33 Total Creatine Kinase 260 units/L (30-135) H 08/27/16 13:17 CK-MB (CK-2) 5.7 ng/mL (0.0-4.0) H 08/27/16 13:17 CK-MB (CK-2) Rel Index 2.1 (0-4) 08/27/16 13:17 Troponin T 0.027 ng/mL (0.00-0.029) 08/27/16 13:17 NT-Pro-B Natriuret Pep 1037 pg/mL (0-900) H 08/27/16 03:55 Total Protein 6.9 g/dL (6.3-8.2) 08/28/16 04:33 Albumin 3.5 g/dL (3.9-5) L 08/28/16 04:33 Albumin/Globulin Ratio 1.0 % 08/28/16 04:33 Triglycerides 65 mg/dL (2-149) 08/27/16 03:55 Cholesterol 122 mg/dL (50-199) 08/27/16 03:55 LDL Cholesterol Direct 60 mg/dL (50-130) 08/27/16 03:55 HDL Cholesterol 49 mg/dL (40-59) 08/27/16 03:55 Cholesterol/HDL Ratio 2.48 % 08/27/16 03:55 TSH 0.244 mlU/mL (0.270-4.200) L 08/27/16 03:55 Free T4 1.28 ng/dL (0.76-1.46) 08/27/16 03:55 Urine Color Yellow (Yellow) 08/27/16 06:41 Urine Turbidity Clear (Clear) 08/27/16 06:41 Urine pH 5.0 (5.0-7.0) 08/27/16 06:41 Ur Specific [place] 1.033 (1.003-1.030) H 08/27/16 06:41 Urine Protein 100 mg/dl mg/dL (Negative) 08/27/16 06:41 Urine Glucose (UA) Neg mg/dL (Negative) 08/27/16 06:41 Urine Ketones Neg mg/dL (Negative) 08/27/16 06:41 Urine Blood Neg (Negative) 08/27/16 06:41 Urine Nitrite Neg (Negative) 08/27/16 06:41 Urine Bilirubin Neg (Negative) 08/27/16 06:41 Urine Urobilinogen < 2.0 mg/dL (<2.0) 08/27/16 06:41 Ur Leukocyte Esterase Neg (Negative) 08/27/16 06:41 Urine WBC (Auto) 4.0 /HPF (0.0-6.0) 08/27/16 06:41 Urine RBC (Auto) 5.0 /HPF (0.0-6.0) 08/27/16 06:41 U Epithel Cells (Auto) 3.0 /HPF (0-13.0) 08/27/16 06:41 Granular Casts 3 /LPF 08/27/16 06:41 Urine Mucus Few /HPF 08/27/16 06:41
--- NOTE | 2016-08-28 14:05 | Consultation ---
History of Present Illness Consult date: 08/28/16 Requesting physician: DIOMEDES MATUTE Reason for consult: COPD, hypoxemia History of present illness: 56 y/o female with emphysema admitted with acute respiratory failure. last admitted to the hospital here in 2013. Takes several different medications but of note, has been out of her theophylline for at least 2 months secondary to cost. Patient is currently comfortable on bipap. CTA was done which is negative for PE but does show a left upper lobe nodule, spiculated and some some right upper lobe scarring. Remainder is negative. Past History Past Medical History: COPD, other (anxiety and chronic pain) Medications and Allergies Allergies Allergy/AdvReac Type Severity Reaction Status Date / Time No Known Allergies Allergy Verified 08/27/16 03:49 Home Medications Medication Instructions Recorded Confirmed Last Taken Type ALPRAZolam [Xanax TAB] 0.5 mg PO TID PRN 08/27/16 08/27/16 08/27/16 History Citalopram [celeXA] 20 mg PO QDAY 08/27/16 08/27/16 08/27/16 History Ibuprofen [Motrin] 800 mg PO Q8HR PRN 08/27/16 08/27/16 08/27/16 History Meloxicam 15 mg PO QDAY 08/27/16 08/27/16 08/27/16 History Montelukast [Singulair] 10 mg PO QPM 08/27/16 08/27/16 08/27/16 History Verapamil ER [Calan Sr] 240 mg PO QDAY 08/27/16 08/27/16 08/27/16 History predniSONE [Deltasone] 10 mg PO QDAY 08/27/16 08/27/16 08/27/16 History Active Meds: Active Medications Acetaminophen (Tylenol) 650 mg PO Q4H PRN PRN Reason: Pain MILD(1-3)/Fever >100.5/BLISS Albuterol (Proventil) 2.5 mg IH Q3HRT PRN PRN Reason: Wheezing Albuterol/Ipratropium (Duoneb 0.5 Mg-3 Mg/3 Ml Soln) 1 ampul IH Q6HRT HERNESTO Last Admin: 08/28/16 13:57 Dose: 1 ampul Alprazolam (Xanax) 0.5 mg PO TID PRN PRN Reason: Anxiety Bisacodyl (Dulcolax) 10 mg DE QDAY PRN PRN Reason: Constipation unrelieved by MOM Citalopram Hydrobromide (Celexa) 20 mg PO QDAY [facility] Last Admin: 08/28/16 10:16 Dose: 20 mg Enoxaparin Sodium (Lovenox) 40 mg SUB-Q QDAY@2200 [facility] Last Admin: 08/27/16 21:20 Dose: 40 mg Hydromorphone HCl (Dilaudid) 0.5 mg IV Q3H PRN PRN Reason: Pain , Severe (7-10) Levofloxacin/Dextrose (Levaquin 750mg/150ml) 750 mg in 150 mls @ 100 mls/hr IV Q24HR [facility] PRN Reason: Protocol Last Admin: 08/28/16 10:06 Dose: 100 mls/hr Ibuprofen (Motrin) 800 mg PO Q8HR PRN PRN Reason: Pain Magnesium Hydroxide (Milk Of Magnesia) 30 ml PO Q4H PRN PRN Reason: Constipation Methylprednisolone Sodium Succinate (Solu-Medrol) 60 mg IV Q8HR [facility] Last Admin: 08/28/16 06:25 Dose: 60 mg Montelukast Sodium (Singulair) 10 mg PO QPM [facility] Last Admin: 08/27/16 17:11 Dose: 10 mg Ondansetron HCl (Zofran) 4 mg IV Q8H PRN PRN Reason: N/V unrelieved by Reglan Oxycodone/Acetaminophen (Percocet 5/325) 1 tab PO Q6H PRN PRN Reason: Pain, Moderate (4-6) Sodium Chloride (Sodium Chloride Flush Syringe 10 Ml) 10 ml IV PRN PRN PRN Reason: LINE FLUSH Verapamil HCl (Calan Sr) 240 mg PO QDAY [facility] Last Admin: 08/28/16 13:08 Dose: 240 mg Zolpidem Tartrate (Ambien) 5 mg PO QHS PRN PRN Reason: Insomnia Review of Systems All systems: negative Physical Examination Vital signs: Vital Signs Pulse Ox 96 08/27/16 03:34 General appearance: alert, other (mild distress but tolerating bipap well) Eyes: non-icteric ENT: other (full face mask for bipap therapy) Neck: supple Ascultation: Bilateral: wheezes Cardiovascular: regular rate and rhythm (sinus tach) Gastrointestinal: normoactive bowel sounds Results - Laboratory Findings CBC and BMP: 08/28/16 04:33 08/28/16 04:33 ABG POC ABG pH 7.301 (7.35-7.45) L 08/27/16 04:29 POC ABG pCO2 61.7 (35-45) H 08/27/16 04:29 POC ABG pO2 113 (80-105) H 08/27/16 04:29 POC ABG HCO3 30.5 08/27/16 04:29 POC ABG Total CO2 32 08/27/16 04:29 POC ABG O2 Sat 98 08/27/16 04:29 PT/INR, D-dimer PT 13.6 Sec. (12.2-14.9) 08/27/16 03:55 INR 1.05 (0.87-1.13) 08/27/16 03:55 Abnormal lab findings: Abnormal Labs 08/27/16 08/27/16 08/27/16 06:41 08:13 13:17 MCH RDW Seg Neuts % (Manual) Lymphocytes % (Manual) Lymphocytes # (Manual) Carbon Dioxide BUN Glucose ALT Total Creatine Kinase 261 H 260 H CK-MB (CK-2) 6.5 H 5.7 H Troponin T 0.067 H Albumin Ur Specific [place] 1.033 H 08/28/16 08/28/16 04:33 04:33 MCH 27 L RDW 15.7 H Seg Neuts % (Manual) 87.0 H Lymphocytes % (Manual) 2.0 L Lymphocytes # (Manual) 0.2 L Carbon Dioxide 31 H BUN 24 H Glucose 156 H ALT < 5 L Total Creatine Kinase CK-MB (CK-2) Troponin T Albumin 3.5 L Ur Specific [place] - Diagnostic Findings Chest x-ray: image reviewed CT scan - chest: image reviewed (as stated in HPI) Assessment and Plan 56 y/o female with acute respiratory failure, secondary to COPD exacerbation most likely secondary to noncompliance with therapy because of cost, now found to have left upper lobe spiculated lesion. 1. Added BID pulmicort and brovana 2. Changed steroids 60q6 3. Continue Duoneb therapy. 4. In regards to spiculated lesion, very high risk for PTX if biopsied via CT. Also very concerning for malignancy. Once more stable, need to arrange an outpatient pet scan to see if this area lights up and or any other areas. Will continue to follow.
[2016-08-28] MEDS: SINGULAIR PO SCH (17:56)
[2016-08-28] MEDS: BROVANA NEBU IH SCH (20:24)
[2016-08-28] MEDS: PULMICORT IH SCH (20:25)
[2016-08-28] MEDS: XANAX PO PRN (21:21)
[2016-08-28] MEDS: LOVENOX SUB-Q SCH (21:22)
[2016-08-29] MEDS: DUONEB 0.5 MG-3 MG/3 ML SOLN IH SCH ×4 (01:20→21:03)
[2016-08-29 07:22] LABS: Basophils % (Auto) 0.1 % (0.0-1.8); Hematocrit 38.6 % (30.3-42.9); Mean Corpuscular HGB Conc 31 % (30-34); Mean Corpuscular Hemoglobin 27 pg (28-32); Mean Corpuscular Volume 86 fl (79-97); Platelet Count 210 K/mm3 (140-440); Red Blood Count 4.48 M/mm3 (3.65-5.03); Red Cell Distribution Width 15.9 % (13.2-15.2); White Blood Count 8.4 K/mm3 (4.5-11.0)
[2016-08-29 07:35] LABS: Anion Gap 13 mmol/L; Blood Urea Nitrogen 34 mg/dL (7-17); Calcium 8.3 mg/dL (8.4-10.2); Carbon Dioxide 35 mmol/L (22-30); Chloride 100.8 mmol/L (98-107); Glucose 102 mg/dL (65-100); Potassium 4.8 mmol/L (3.6-5.0); Sodium 144 mmol/L (137-145)
--- NOTE | 2016-08-29 07:56 | Vascular Lab Report ---
CAROTID DUPLEX STUDY: RIGHT PSVEDV CCA PROX:[id number] CCA DIST:[id number] ICA PROX:[id number] ICA MID: 9852 ICA DIST:[id number] ECA: 9719 VERT: 50 16 LEFT PSVEDV CCA PROX:17889 CCA DIST: 7328 ICA PROX: 9043 ICA MID:[id number] ICA DIST:17571 ECA: 7026 VERT: 86 43 REASON FOR EXAM: Carotid artery stenosis/syncope. COMMENTS ON THE RIGHT: Doppler frequency analysis is consistent with 16 to 49 percent diameter reduction of the internal carotid artery. Minimal amount of plaque is seen. The common carotid artery is patent. The external carotid artery is patent. The vertebral artery has antegrade flow. COMMENTS ON THE LEFT: Doppler frequency analysis is consistent with 16 to 49 percent diameter reduction of the internal carotid artery. Minimal amount of plaque is seen. The common carotid artery is patent. The external carotid artery is patent. The vertebral artery has antegrade flow. IMPRESSION: Less than 50% diameter reduction in the internal carotid arteries bilaterally. Consider repeat carotid artery duplex in 12 months.
[2016-08-29] MEDS: PULMICORT IH SCH ×2 (08:15→19:56)
[2016-08-29] MEDS: BROVANA NEBU IH SCH ×2 (08:18→19:56)
--- NOTE | 2016-08-29 09:02 | Progress Note ---
Assessment and Plan 56 y/o female with acute respiratory failure, secondary to COPD exacerbation most likely secondary to noncompliance with therapy because of cost, now found to have left upper lobe spiculated lesion. 1. Cnotinue BID pulmicort and brovana 2. Continue steroids at 60q6 3. Continue Duoneb therapy. 4. In regards to spiculated lesion, very high risk for PTX if biopsied via CT. Also very concerning for malignancy. Once more stable, need to arrange an outpatient pet scan to see if this area lights up and or any other areas. Will continue to follow. Subjective Date of service: 08/29/16 Interval history: Feels better today. Off bipap this am on ventimask. No family at bedside. Objective Vital Signs - 12hr 08/29/16 08/29/16 08/29/16 01:15 01:19 01:27 Temperature 97.4 F L Pulse Rate Pulse Rate [ 88 85 Anterior Bilateral Throughout] Pulse Rate [ Bilateral] Pulse Rate [ From Monitor] Pulse Rate [ 74 Left Radial] Respiratory 18 Rate Respiratory 20 18 Rate [Anterior Bilateral Throughout] Respiratory Rate [Bilateral ] Blood Pressure 107/55 [Left Arm] O2 Sat by Pulse 99 Oximetry 08/29/16 08/29/16 08/29/16 03:30 04:00 08:15 Temperature 97.4 F L Pulse Rate 75 Pulse Rate [ 82 Anterior Bilateral Throughout] Pulse Rate [ 82 Bilateral] Pulse Rate [ From Monitor] Pulse Rate [ 81 Left Radial] Respiratory 17 Rate Respiratory 16 Rate [Anterior Bilateral Throughout] Respiratory 16 Rate [Bilateral ] Blood Pressure 142/74 [Left Arm] O2 Sat by Pulse 100 Oximetry 08/29/16 08/29/16 08/29/16 08:21 08:25 08:30 Temperature 97.6 F Pulse Rate 82 Pulse Rate [ 74 Anterior Bilateral Throughout] Pulse Rate [ Bilateral] Pulse Rate [ 74 From Monitor] Pulse Rate [ Left Radial] Respiratory 16 18 Rate Respiratory 18 Rate [Anterior Bilateral Throughout] Respiratory Rate [Bilateral ] Blood Pressure 131/80 [Left Arm] O2 Sat by Pulse 482 H 100 Oximetry Constitutional: alert Eyes: non-icteric Neck: supple Ascultation: Bilateral: wheezes Cardiovascular: regular rate and rhythm (sinus tach) Gastrointestinal: normoactive bowel sounds CBC and BMP: 08/29/16 06:01 08/29/16 06:01 ABG, PT/INR, D-dimer: ABG POC ABG pH 7.301 (7.35-7.45) L 08/27/16 04:29 POC ABG pCO2 61.7 (35-45) H 08/27/16 04:29 POC ABG pO2 113 (80-105) H 08/27/16 04:29 POC ABG HCO3 30.5 08/27/16 04:29 POC ABG Total CO2 32 08/27/16 04:29 POC ABG O2 Sat 98 08/27/16 04:29 PT/INR, D-dimer PT 13.6 Sec. (12.2-14.9) 08/27/16 03:55 INR 1.05 (0.87-1.13) 08/27/16 03:55 Abnormal lab findings: Abnormal Labs 08/27/16 08/27/16 08/27/16 06:41 08:13 13:17 MCH RDW Lymph % (Auto) Lymph # Seg Neutrophils % Seg Neuts % (Manual) Lymphocytes % (Manual) Lymphocytes # (Manual) Carbon Dioxide BUN Glucose Calcium ALT Total Creatine Kinase 261 H 260 H CK-MB (CK-2) 6.5 H 5.7 H Troponin T 0.067 H Albumin Ur Specific [employer] 1.033 H 08/28/16 08/28/16 08/29/16 04:33 04:33 06:01 MCH 27 L 27 L RDW 15.7 H 15.9 H Lymph % (Auto) 10.5 L Lymph # 0.9 L Seg Neutrophils % 84.6 H Seg Neuts % (Manual) 87.0 H Lymphocytes % (Manual) 2.0 L Lymphocytes # (Manual) 0.2 L Carbon Dioxide 31 H BUN 24 H Glucose 156 H Calcium ALT < 5 L Total Creatine Kinase CK-MB (CK-2) Troponin T Albumin 3.5 L Ur Specific [employer] 08/29/16 06:01 MCH RDW Lymph % (Auto) Lymph # Seg Neutrophils % Seg Neuts % (Manual) Lymphocytes % (Manual) Lymphocytes # (Manual) Carbon Dioxide 35 H BUN 34 H Glucose 102 H Calcium 8.3 L ALT Total Creatine Kinase CK-MB (CK-2) Troponin T Albumin Ur Specific [employer]
[2016-08-29] MEDS: celeXA PO SCH (10:11)
[2016-08-29] MEDS: LEVAQUIN PO SCH (10:11)
[2016-08-29] MEDS: CALAN SR PO SCH (10:11)
[2016-08-29] MEDS ORDERED: MAGNESIUM SULFATE 2GM/50ML 2 GM/50 ML BAG IV ONE (12:41)
--- NOTE | 2016-08-29 15:14 | Consultation ---
History of Present Illness - Reason for Consult Consult date: 08/29/16 Evaluate for Acute IRU - History of Present Illness 56 y.o. female with history of HTN, SAMMY, COPD, who presented secondary to progressive shortness of breath, wheezing and productive cough. Pt initiated on treatment for acute COPD exacerbation; +BiPAP. Pt also with elevated troponins, however, cardiac work-up negative; Spiculated left upper lobe mass suspicious for malignancy noted on CTA, recommended for outpt PET scan. On today, pt is on BiPAP; denies any acute shortness of breath. Consult placed for post-acute placement recommendations. Past History Past Medical History: COPD, hypertension, other (anxiety/depression, chronic pain, SAMMY) Past Surgical History: total hip replacement (left ), Other (multiple stent placements) Social history: lives with family (dtr), smoking. denies: alcohol abuse Family history: CAD, hypertension, other (multiple myeloma) Medications and Allergies Allergies Allergy/AdvReac Type Severity Reaction Status Date / Time No Known Allergies Allergy Verified 08/27/16 03:49 Home Medications Medication Instructions Recorded Confirmed Last Taken Type ALPRAZolam [Xanax TAB] 0.5 mg PO TID PRN 08/27/16 08/27/16 08/27/16 History Citalopram [celeXA] 20 mg PO QDAY 08/27/16 08/27/16 08/27/16 History Ibuprofen [Motrin] 800 mg PO Q8HR PRN 08/27/16 08/27/16 08/27/16 History Meloxicam 15 mg PO QDAY 08/27/16 08/27/16 08/27/16 History Montelukast [Singulair] 10 mg PO QPM 08/27/16 08/27/16 08/27/16 History Verapamil ER [Calan Sr] 240 mg PO QDAY 08/27/16 08/27/16 08/27/16 History predniSONE [Deltasone] 10 mg PO QDAY 08/27/16 08/27/16 08/27/16 History Active Meds: Active Medications Acetaminophen (Tylenol) 650 mg PO Q4H PRN PRN Reason: Pain MILD(1-3)/Fever >100.5/BLISS Albuterol (Proventil) 2.5 mg IH Q3HRT PRN PRN Reason: Wheezing Albuterol/Ipratropium (Duoneb 0.5 Mg-3 Mg/3 Ml Soln) 1 ampul IH Q6HRT [facility] Last Admin: 08/29/16 12:25 Dose: 1 ampul Alprazolam (Xanax) 0.5 mg PO TID PRN PRN Reason: Anxiety Last Admin: 08/28/16 21:21 Dose: 0.5 mg Arformoterol Tartrate (Brovana Nebu) 15 mcg IH Q12HRT [facility] Last Admin: 08/29/16 08:18 Dose: 15 mcg Bisacodyl (Dulcolax) 10 mg OK QDAY PRN PRN Reason: Constipation unrelieved by MOM Budesonide (Pulmicort) 0.5 mg IH Q12HRT [facility] Last Admin: 08/29/16 08:15 Dose: 0.5 mg Citalopram Hydrobromide (Celexa) 20 mg PO QDAY [facility] Last Admin: 08/29/16 10:11 Dose: 20 mg Enoxaparin Sodium (Lovenox) 40 mg SUB-Q QDAY@2200 [facility] Last Admin: 08/28/16 21:22 Dose: 40 mg Hydromorphone HCl (Dilaudid) 0.5 mg IV Q3H PRN PRN Reason: Pain , Severe (7-10) Ibuprofen (Motrin) 800 mg PO Q8HR PRN PRN Reason: Pain Levofloxacin (Levaquin) 750 mg PO Q24HR [facility] Last Admin: 08/29/16 10:11 Dose: 750 mg Magnesium Hydroxide (Milk Of Magnesia) 30 ml PO Q4H PRN PRN Reason: Constipation Methylprednisolone Sodium Succinate (Solu-Medrol) 60 mg IV Q6HR [facility] Last Admin: 08/29/16 12:30 Dose: 60 mg Montelukast Sodium (Singulair) 10 mg PO QPM [facility] Last Admin: 08/28/16 17:56 Dose: 10 mg Ondansetron HCl (Zofran) 4 mg IV Q8H PRN PRN Reason: N/V unrelieved by Reglan Oxycodone/Acetaminophen (Percocet 5/325) 1 tab PO Q6H PRN PRN Reason: Pain, Moderate (4-6) Sodium Chloride (Sodium Chloride Flush Syringe 10 Ml) 10 ml IV PRN PRN PRN Reason: LINE FLUSH Verapamil HCl (Calan Sr) 240 mg PO QDAY [facility] Last Admin: 08/29/16 10:11 Dose: 240 mg Zolpidem Tartrate (Ambien) 5 mg PO QHS PRN PRN Reason: Insomnia Review of Systems All systems: negative Ears, nose, mouth and throat: no headache Cardiovascular: no chest pain Respiratory: no shortness of breath Genitourinary Female: no dysuria Exam - Constitutional Vitals: Vital Signs - 12hr 08/29/16 08/29/16 08/29/16 03:30 04:00 08:15 Temperature 97.4 F L Pulse Rate 75 Pulse Rate [ 82 Anterior Bilateral Throughout] Pulse Rate [ 82 Bilateral] Pulse Rate [ From Monitor] Pulse Rate [ 81 Left Radial] Respiratory 17 Rate Respiratory 16 Rate [Anterior Bilateral Throughout] Respiratory 16 Rate [Bilateral ] Blood Pressure 142/74 [Left Arm] O2 Sat by Pulse 100 Oximetry 08/29/16 08/29/16 08/29/16 08:21 08:25 08:30 Temperature 97.6 F Pulse Rate 82 Pulse Rate [ 74 Anterior Bilateral Throughout] Pulse Rate [ Bilateral] Pulse Rate [ 74 From Monitor] Pulse Rate [ Left Radial] Respiratory 16 18 Rate Respiratory 18 Rate [Anterior Bilateral Throughout] Respiratory Rate [Bilateral ] Blood Pressure 131/80 [Left Arm] O2 Sat by Pulse 482 H 100 Oximetry 08/29/16 08/29/16 08/29/16 10:00 10:45 12:20 Temperature 97.8 F Pulse Rate Pulse Rate [ Anterior Bilateral Throughout] Pulse Rate [ Bilateral] Pulse Rate [ 74 From Monitor] Pulse Rate [ 94 H Left Radial] Respiratory 18 24 Rate Respiratory Rate [Anterior Bilateral Throughout] Respiratory Rate [Bilateral ] Blood Pressure 126/77 [Left Arm] O2 Sat by Pulse 100 100 98 Oximetry 08/29/16 08/29/16 08/29/16 12:25 13:00 13:20 Temperature Pulse Rate 101 H Pulse Rate [ 89 92 H Anterior Bilateral Throughout] Pulse Rate [ 89 Bilateral] Pulse Rate [ From Monitor] Pulse Rate [ Left Radial] Respiratory 23 Rate Respiratory 24 24 Rate [Anterior Bilateral Throughout] Respiratory 24 Rate [Bilateral ] Blood Pressure [Left Arm] O2 Sat by Pulse 100 Oximetry 08/29/16 14:24 Temperature Pulse Rate 72 Pulse Rate [ Anterior Bilateral Throughout] Pulse Rate [ Bilateral] Pulse Rate [ From Monitor] Pulse Rate [ Left Radial] Respiratory Rate Respiratory Rate [Anterior Bilateral Throughout] Respiratory Rate [Bilateral ] Blood Pressure [Left Arm] O2 Sat by Pulse Oximetry General appearance: no acute distress, other (BiPAP in place; denies any shortness of breath) - EENT Eyes: EOM intact ENT: hearing intact - Neck Neck: supple - Respiratory Respiratory effort: normal Respiratory: right: wheezing - Cardiovascular Heart Sounds: Present: S1 & S2 - Extremities Extremities: No edema - Gastrointestinal General gastrointestinal: Present: soft, non-tender, non-distended, normal bowel sounds - Integumentary Integumentary: Present: clear - Neurologic Neurologic: CNII-XII intact, moves all extremities (3/5 for left hip flexion, 4/ 5 remaining strength exam) - Psychiatric Psychiatric: appropriate mood/affect, intact judgment & insight, memory intact, cooperative - Labs CBC & Chem 7: 08/30/16 03:37 08/30/16 03:37 Labs: Laboratory Results - last 72 hr 08/27/16 08/27/16 08/27/16 06:41 08:13 13:17 WBC RBC Hgb Hct MCV MCH MCHC RDW Plt Count Lymph % (Auto) Cole % (Auto) Eos % (Auto) Baso % (Auto) Lymph # Cole # Eos # Baso # Add Manual Diff Total Counted Seg Neutrophils % Seg Neuts % (Manual) Band Neutrophils % Lymphocytes % (Manual) Reactive Lymphs % (Man) Monocytes % (Manual) Eosinophils % (Manual) Basophils % (Manual) Metamyelocytes % Myelocytes % Promyelocytes % Blast Cells % Nucleated RBC % Seg Neutrophils # Seg Neutrophils # Man Band Neutrophils # Lymphocytes # (Manual) Abs React Lymphs (Man) Monocytes # (Manual) Eosinophils # (Manual) Basophils # (Manual) Metamyelocytes # Myelocytes # Promyelocytes # Blast Cells # WBC Morphology Hypersegmented Neuts Hyposegmented Neuts Hypogranular Neuts Smudge Cells Toxic Granulation Toxic Vacuolation Dohle Bodies Pelger-Huet Anomaly José Miguel Rods Platelet Estimate Clumped Platelets Plt Clumps, EDTA Large Platelets Giant Platelets Platelet Satelliting Plt Morphology Comment RBC Morphology Dimorphic RBCs Polychromasia Hypochromasia Poikilocytosis Anisocytosis Microcytosis Macrocytosis Spherocytes Pappenheimer Bodies Sickle Cells Target Cells Tear Drop Cells Ovalocytes Helmet Cells Steward-Marvin Bodies [place] Rings [place] Cells Bite Cells Crenated Cell Elliptocytes Acanthocytes (Spur) Rouleaux Hemoglobin C Crystals Schistocytes Malaria parasites Popeye Bodies Hem Pathologist Commnt Sodium Potassium Chloride Carbon Dioxide Anion Gap BUN Creatinine Estimated GFR BUN/Creatinine Ratio Glucose Calcium Magnesium Total Bilirubin AST ALT Alkaline Phosphatase Total Creatine Kinase 261 H 260 H CK-MB (CK-2) 6.5 H 5.7 H CK-MB (CK-2) Rel Index 2.4 2.1 Troponin T 0.067 H 0.027 Total Protein Albumin Albumin/Globulin Ratio Urine Color Yellow Urine Turbidity Clear Urine pH 5.0 Ur Specific [place] 1.033 H Urine Protein 100 mg/dl Urine Glucose (UA) Neg Urine Ketones Neg Urine Blood Neg Urine Nitrite Neg Urine Bilirubin Neg Urine Urobilinogen < 2.0 Ur Leukocyte Esterase Neg Urine WBC (Auto) 4.0 Urine RBC (Auto) 5.0 U Epithel Cells (Auto) 3.0 Granular Casts 3 Urine Mucus Few 08/28/16 08/28/16 08/29/16 04:33 04:33 06:01 WBC 8.1 8.4 RBC 4.61 4.48 Hgb 12.2 12.0 Hct 38.6 38.6 MCV 84 86 MCH 27 L 27 L MCHC 32 31 RDW 15.7 H 15.9 H Plt Count 208 210 Lymph % (Auto) 10.5 L Cole % (Auto) 4.8 Eos % (Auto) 0.0 Baso % (Auto) 0.1 Lymph # 0.9 L Cole # 0.4 Eos # 0.0 Baso # 0.0 Add Manual Diff Complete Total Counted 100 Seg Neutrophils % Straightening Machine Operator 84.6 H Seg Neuts % (Manual) 87.0 H Band Neutrophils % 10.0 Lymphocytes % (Manual) 2.0 L Reactive Lymphs % (Man) 1.0 Monocytes % (Manual) 0 Eosinophils % (Manual) 0 Basophils % (Manual) 0 Metamyelocytes % 0 Myelocytes % 0 Promyelocytes % 0 Blast Cells % 0 Nucleated RBC % Not Reportable Seg Neutrophils # 7.1 Seg Neutrophils # Man 7.0 Band Neutrophils # 0.8 Lymphocytes # (Manual) 0.2 L Abs React Lymphs (Man) 0.1 Monocytes # (Manual) 0.0 Eosinophils # (Manual) 0.0 Basophils # (Manual) 0.0 Metamyelocytes # 0.0 Myelocytes # 0.0 Promyelocytes # 0.0 Blast Cells # 0.0 WBC Morphology Not Reportable Hypersegmented Neuts Not Reportable Hyposegmented Neuts Not Reportable Hypogranular Neuts Not Reportable Smudge Cells Not Reportable Toxic Granulation Not Reportable Toxic Vacuolation Not Reportable Dohle Bodies Not Reportable Pelger-Huet Anomaly Not Reportable José Miguel Rods Not Reportable Platelet Estimate Appears normal Clumped Platelets Not Reportable Plt Clumps, EDTA Not Reportable Large Platelets Not Reportable Giant Platelets Not Reportable Platelet Satelliting Not Reportable Plt Morphology Comment Not Reportable RBC Morphology Not Reportable Dimorphic RBCs Not Reportable Polychromasia Few Hypochromasia Not Reportable Poikilocytosis Not Reportable Anisocytosis 1+ Microcytosis Not Reportable Macrocytosis Not Reportable Spherocytes Not Reportable Pappenheimer Bodies Not Reportable Sickle Cells Not Reportable Target Cells Not Reportable Tear Drop Cells Not Reportable Ovalocytes Not Reportable Helmet Cells Not Reportable Steward-Marvin Bodies Not Reportable [place] Rings Not Reportable [place] Cells Not Reportable Bite Cells Not Reportable Crenated Cell Not Reportable Elliptocytes Not Reportable Acanthocytes (Spur) Not Reportable Rouleaux Not Reportable Hemoglobin C Crystals Not Reportable Schistocytes Not Reportable Malaria parasites Not Reportable Popeye Bodies Not Reportable Hem Pathologist Commnt No Sodium 144 Potassium 4.7 D Chloride 101.6 Carbon Dioxide 31 H Anion Gap 16 BUN 24 H Creatinine 0.7 Estimated GFR > 60 BUN/Creatinine Ratio 34.28 Glucose 156 H Calcium 8.5 Magnesium Total Bilirubin < 0.20 AST 24 ALT < 5 L Alkaline Phosphatase 57 Total Creatine Kinase CK-MB (CK-2) CK-MB (CK-2) Rel Index Troponin T Total Protein 6.9 Albumin 3.5 L Albumin/Globulin Ratio 1.0 Urine Color Urine Turbidity Urine pH Ur Specific [place] Urine Protein Urine Glucose (UA) Urine Ketones Urine Blood Urine Nitrite Urine Bilirubin Urine Urobilinogen Ur Leukocyte Esterase Urine WBC (Auto) Urine RBC (Auto) U Epithel Cells (Auto) Granular Casts Urine Mucus 08/29/16 08/29/16 06:01 06:01 WBC RBC Hgb Hct MCV MCH MCHC RDW Plt Count Lymph % (Auto) Cole % (Auto) Eos % (Auto) Baso % (Auto) Lymph # Cole # Eos # Baso # Add Manual Diff Total Counted Seg Neutrophils % Seg Neuts % (Manual) Band Neutrophils % Lymphocytes % (Manual) Reactive Lymphs % (Man) Monocytes % (Manual) Eosinophils % (Manual) Basophils % (Manual) Metamyelocytes % Myelocytes % Promyelocytes % Blast Cells % Nucleated RBC % Seg Neutrophils # Seg Neutrophils # Man Band Neutrophils # Lymphocytes # (Manual) Abs React Lymphs (Man) Monocytes # (Manual) Eosinophils # (Manual) Basophils # (Manual) Metamyelocytes # Myelocytes # Promyelocytes # Blast Cells # WBC Morphology Hypersegmented Neuts Hyposegmented Neuts Hypogranular Neuts Smudge Cells Toxic Granulation Toxic Vacuolation Dohle Bodies Pelger-Huet Anomaly José Miguel Rods Platelet Estimate Clumped Platelets Plt Clumps, EDTA Large Platelets Giant Platelets Platelet Satelliting Plt Morphology Comment RBC Morphology Dimorphic RBCs Polychromasia Hypochromasia Poikilocytosis Anisocytosis Microcytosis Macrocytosis Spherocytes Pappenheimer Bodies Sickle Cells Target Cells Tear Drop Cells Ovalocytes Helmet Cells Steward-Marvin Bodies [place] Rings [place] Cells Bite Cells Crenated Cell Elliptocytes Acanthocytes (Spur) Rouleaux Hemoglobin C Crystals Schistocytes Malaria parasites Popeye Bodies Hem Pathologist Commnt Sodium 144 Potassium 4.8 Chloride 100.8 Carbon Dioxide 35 H Anion Gap 13 BUN 34 H Creatinine 0.8 Estimated GFR > 60 BUN/Creatinine Ratio 42.50 Glucose 102 H Calcium 8.3 L Magnesium 2.90 H Total Bilirubin AST ALT Alkaline Phosphatase Total Creatine Kinase CK-MB (CK-2) CK-MB (CK-2) Rel Index Troponin T Total Protein Albumin Albumin/Globulin Ratio Urine Color Urine Turbidity Urine pH Ur Specific [place] Urine Protein Urine Glucose (UA) Urine Ketones Urine Blood Urine Nitrite Urine Bilirubin Urine Urobilinogen Ur Leukocyte Esterase Urine WBC (Auto) Urine RBC (Auto) U Epithel Cells (Auto) Granular Casts Urine Mucus Assessment and Plan Patient was assessed and evaluated for Acute Inpatient Rehab Unit. 56 y.o. female with acute COPD exacerbation. Rehab options discussed in detail with patient; pending PT evaluation. Pt agrees to IRU admission, if needed once medically stable. Pt previously independent with ADLs, transfers; Mikhail with cane present in room. Pt has family support; lives with her daughter. Will continue to follow progress. Thank you for consultation. - Patient Problems (1) COPD exacerbation Onset Date: 12/17/13 Current Visit: Yes Status: Acute (2) Hypertension Onset Date: 05/28/13 Current Visit: Yes Status: Chronic Qualifiers: Hypertension type: essential hypertension Qualified Code(s): I10 - Essential (primary) hypertension (3) Sleep apnea Current Visit: Yes Status: Chronic Qualifiers: Sleep apnea type: S
--- NOTE | 2016-08-29 15:22 | Progress Note ---
Assessment and Plan Assessment and plan: COPD exacerbation SAMMY Sleep apnea Elevated troponin Spiculated left upper lobe mass suspicious for malignancy - COPD exacerbation management - Cardiology and pulmonary consult appreciated - Echo normal EF - Patient placement - Pulmonary consult Disposition - Patient was evaluated for inpatient rehab History Interval history: Patient was seen and evaluated this morning, patient's breathing is getting better, she still feels winded. She is off the CPAP machine and patient was on h8igh flow oxygen. Hospitalist Physical - Physical exam Narrative exam: In moderate respiratory distress. The patient appeared well nourished and normally developed. Vital signs as documented. Head exam is unremarkable. No scleral icterus . Neck is without jugular venous distension, thyromegaly, or carotid bruits. Lungs wheezing all over the chest. Cardiac exam reveals regular rate and Rhythm. First and second heart sounds normal. No murmurs, rubs or gallops. Abdominal exam reveals normal bowel sounds, no masses, no organomegaly and no aortic enlargement. Extremities are nonedematous and both femoral and pedal pulses are normal. EXTRACTOR OPERATOR: Alert and oriented 3. No focal weakness. - Constitutional Vitals: Temp Pulse Resp BP Pulse Ox 97.8 F 72 23 126/77 100 08/29/16 12:20 08/29/16 14:24 08/29/16 13:20 08/29/16 12:20 08/29/16 13:20 General appearance: Present: no acute distress, other (BiPAP in place; denies any shortness of breath) Results - Labs CBC & Chem 7: 08/29/16 06:01 08/29/16 06:01 Labs: Laboratory Last Values WBC 8.4 K/mm3 (4.5-11.0) 08/29/16 06:01 RBC 4.48 M/mm3 (3.65-5.03) 08/29/16 06:01 Hgb 12.0 gm/dl (10.1-14.3) 08/29/16 06:01 Hct 38.6 % (30.3-42.9) 08/29/16 06:01 MCV 86 fl (79-97) 08/29/16 06:01 MCH 27 pg (28-32) L 08/29/16 06:01 MCHC 31 % (30-34) 08/29/16 06:01 RDW 15.9 % (13.2-15.2) H 08/29/16 06:01 Plt Count 210 K/mm3 (140-440) 08/29/16 06:01 Lymph % (Auto) 10.5 % (13.4-35.0) L 08/29/16 06:01 [place] % (Auto) 4.8 % (0.0-7.3) 08/29/16 06:01 Eos % (Auto) 0.0 % (0.0-4.3) 08/29/16 06:01 Baso % (Auto) 0.1 % (0.0-1.8) 08/29/16 06:01 Lymph # 0.9 K/mm3 (1.2-5.4) L 08/29/16 06:01 [place] # 0.4 K/mm3 (0.0-0.8) 08/29/16 06:01 Eos # 0.0 K/mm3 (0.0-0.4) 08/29/16 06:01 Baso # 0.0 K/mm3 (0.0-0.1) 08/29/16 06:01 Add Manual Diff Complete 08/28/16 04:33 Total Counted 100 08/28/16 04:33 Seg Neutrophils % 84.6 % (40.0-70.0) H 08/29/16 06:01 Seg Neuts % (Manual) 87.0 % (40.0-70.0) H 08/28/16 04:33 Band Neutrophils % 10.0 % 08/28/16 04:33 Lymphocytes % (Manual) 2.0 % (13.4-35.0) L 08/28/16 04:33 Reactive Lymphs % (Man) 1.0 % 08/28/16 04:33 Monocytes % (Manual) 0 % (0.0-7.3) 08/28/16 04:33 Eosinophils % (Manual) 0 % (0.0-4.3) 08/28/16 04:33 Basophils % (Manual) 0 % (0.0-1.8) 08/28/16 04:33 Metamyelocytes % 0 % 08/28/16 04:33 Myelocytes % 0 % 08/28/16 04:33 Promyelocytes % 0 % 08/28/16 04:33 Blast Cells % 0 % 08/28/16 04:33 Nucleated RBC % Not Reportable 08/28/16 04:33 Seg Neutrophils # 7.1 K/mm3 (1.8-7.7) 08/29/16 06:01 Seg Neutrophils # Man 7.0 K/mm3 (1.8-7.7) 08/28/16 04:33 Band Neutrophils # 0.8 K/mm3 08/28/16 04:33 Lymphocytes # (Manual) 0.2 K/mm3 (1.2-5.4) L 08/28/16 04:33 Abs React Lymphs (Man) 0.1 K/mm3 08/28/16 04:33 Monocytes # (Manual) 0.0 K/mm3 (0.0-0.8) 08/28/16 04:33 Eosinophils # (Manual) 0.0 K/mm3 (0.0-0.4) 08/28/16 04:33 Basophils # (Manual) 0.0 K/mm3 (0.0-0.1) 08/28/16 04:33 Metamyelocytes # 0.0 K/mm3 08/28/16 04:33 Myelocytes # 0.0 K/mm3 08/28/16 04:33 Promyelocytes # 0.0 K/mm3 08/28/16 04:33 Blast Cells # 0.0 K/mm3 08/28/16 04:33 WBC Morphology Not Reportable 08/28/16 04:33 Hypersegmented Neuts Not Reportable 08/28/16 04:33 Hyposegmented Neuts Not Reportable 08/28/16 04:33 Hypogranular Neuts Not Reportable 08/28/16 04:33 Smudge Cells Not Reportable 08/28/16 04:33 Toxic Granulation Not Reportable 08/28/16 04:33 Toxic Vacuolation Not Reportable 08/28/16 04:33 Dohle Bodies Not Reportable 08/28/16 04:33 Pelger-Huet Anomaly Not Reportable 08/28/16 04:33 José Miguel Rods Not Reportable 08/28/16 04:33 Platelet Estimate Appears normal 08/28/16 04:33 Clumped Platelets Not Reportable 08/28/16 04:33 Plt Clumps, EDTA Not Reportable 08/28/16 04:33 Large Platelets Not Reportable 08/28/16 04:33 Giant Platelets Not Reportable 08/28/16 04:33 Platelet Satelliting Not Reportable 08/28/16 04:33 Plt Morphology Comment Not Reportable 08/28/16 04:33 RBC Morphology Not Reportable 08/28/16 04:33 Dimorphic RBCs Not Reportable 08/28/16 04:33 Polychromasia Few 08/28/16 04:33 Hypochromasia Not Reportable 08/28/16 04:33 Poikilocytosis Not Reportable 08/28/16 04:33 Anisocytosis 1+ 08/28/16 04:33 Microcytosis Not Reportable 08/28/16 04:33 Macrocytosis Not Reportable 08/28/16 04:33 Spherocytes Not Reportable 08/28/16 04:33 Pappenheimer Bodies Not Reportable 08/28/16 04:33 Sickle Cells Not Reportable 08/28/16 04:33 Target Cells Not Reportable 08/28/16 04:33 Tear Drop Cells Not Reportable 08/28/16 04:33 Ovalocytes Not Reportable 08/28/16 04:33 Helmet Cells Not Reportable 08/28/16 04:33 Steward-Kennard Bodies Not Reportable 08/28/16 04:33 [place] Rings Not Reportable 08/28/16 04:33 [place] Cells Not Reportable 08/28/16 04:33 Bite Cells Not Reportable 08/28/16 04:33 Crenated Cell Not Reportable 08/28/16 04:33 Elliptocytes Not Reportable 08/28/16 04:33 Acanthocytes (Spur) Not Reportable 08/28/16 04:33 Rouleaux Not Reportable 08/28/16 04:33 Hemoglobin C Crystals Not Reportable 08/28/16 04:33 Schistocytes Not Reportable 08/28/16 04:33 Malaria parasites Not Reportable 08/28/16 04:33 Popeye Bodies Not Reportable 08/28/16 04:33 Hem Pathologist Commnt No 08/28/16 04:33 PT 13.6 Sec. (12.2-14.9) 08/27/16 03:55 INR 1.05 (0.87-1.13) 08/27/16 03:55 APTT 29.3 Sec. (24.2-36.6) 08/27/16 03:55 POC ABG pH 7.301 (7.35-7.45) L 08/27/16 04:29 POC ABG pCO2 61.7 (35-45) H 08/27/16 04:29 POC ABG pO2 113 (80-105) H 08/27/16 04:29 POC ABG HCO3 30.5 08/27/16 04:29 POC ABG Total CO2 32 08/27/16 04:29 POC ABG O2 Sat 98 08/27/16 04:29 POC ABG Base Excess 4 08/27/16 04:29 FiO2 50 % 08/27/16 04:29 Sodium 144 mmol/L (137-145) 08/29/16 06:01 Potassium 4.8 mmol/L (3.6-5.0) 08/29/16 06:01 Chloride 100.8 mmol/L (98-107) 08/29/16 06:01 Carbon Dioxide 35 mmol/L (22-30) H 08/29/16 06:01 Anion Gap 13 mmol/L 08/29/16 06:01 BUN 34 mg/dL (7-17) H 08/29/16 06:01 Creatinine 0.8 mg/dL (0.7-1.2) 08/29/16 06:01 Estimated GFR > 60 ml/min 08/29/16 06:01 BUN/Creatinine Ratio 42.50 % 08/29/16 06:01 Glucose 102 mg/dL (65-100) H 08/29/16 06:01 Hemoglobin A1c 6.2 % (4-6) H 08/27/16 03:55 Calcium 8.3 mg/dL (8.4-10.2) L 08/29/16 06:01 Magnesium 2.90 mg/dL (1.7-2.3) H 08/29/16 06:01 Total Bilirubin < 0.20 mg/dL (0.1-1.2) 08/28/16 04:33 AST 24 units/L (5-40) 08/28/16 04:33 ALT < 5 units/L (7-56) L 08/28/16 04:33 Alkaline Phosphatase 57 units/L (35-129) 08/28/16 04:33 Total Creatine Kinase 260 units/L (30-135) H 08/27/16 13:17 CK-MB (CK-2) 5.7 ng/mL (0.0-4.0) H 08/27/16 13:17 CK-MB (CK-2) Rel Index 2.1 (0-4) 08/27/16 13:17 Troponin T 0.027 ng/mL (0.00-0.029) 08/27/16 13:17 NT-Pro-B Natriuret Pep 1037 pg/mL (0-900) H 08/27/16 03:55 Total Protein 6.9 g/dL (6.3-8.2) 08/28/16 04:33 Albumin 3.5 g/dL (3.9-5) L 08/28/16 04:33 Albumin/Globulin Ratio 1.0 % 08/28/16 04:33 Triglycerides 65 mg/dL (2-149) 08/27/16 03:55 Cholesterol 122 mg/dL (50-199) 08/27/16 03:55 LDL Cholesterol Direct 60 mg/dL (50-130) 08/27/16 03:55 HDL Cholesterol 49 mg/dL (40-59) 08/27/16 03:55 Cholesterol/HDL Ratio 2.48 % 08/27/16 03:55 TSH 0.244 mlU/mL (0.270-4.200) L 08/27/16 03:55 Free T4 1.28 ng/dL (0.76-1.46) 08/27/16 03:55 Urine Color Yellow (Yellow) 08/27/16 06:41 Urine Turbidity Clear (Clear) 08/27/16 06:41 Urine pH 5.0 (5.0-7.0) 08/27/16 06:41 Ur Specific [place] 1.033 (1.003-1.030) H 08/27/16 06:41 Urine Protein 100 mg/dl mg/dL (Negative) 08/27/16 06:41 Urine Glucose (UA) Neg mg/dL (Negative) 08/27/16 06:41 Urine Ketones Neg mg/dL (Negative) 08/27/16 06:41 Urine Blood Neg (Negative) 08/27/16 06:41 Urine Nitrite Neg (Negative) 08/27/16 06:41 Urine Bilirubin Neg (Negative) 08/27/16 06:41 Urine Urobilinogen < 2.0 mg/dL (<2.0) 08/27/16 06:41 Ur Leukocyte Esterase Neg (Negative) 08/27/16 06:41 Urine WBC (Auto) 4.0 /HPF (0.0-6.0) 08/27/16 06:41 Urine RBC (Auto) 5.0 /HPF (0.0-6.0) 08/27/16 06:41 U Epithel Cells (Auto) 3.0 /HPF (0-13.0) 08/27/16 06:41 Granular Casts 3 /LPF 08/27/16 06:41 Urine Mucus Few /HPF 08/27/16 06:41
[2016-08-29] MEDS: SINGULAIR PO SCH (18:31)
[2016-08-29] MEDS: LOVENOX SUB-Q SCH (21:38)
[2016-08-30] MEDS: DUONEB 0.5 MG-3 MG/3 ML SOLN IH SCH ×4 (03:37→19:52)
[2016-08-30 04:30] LABS: Basophils % (Auto) 0.1 % (0.0-1.8); Mean Corpuscular HGB Conc 31 % (30-34); Mean Corpuscular Hemoglobin 26 pg (28-32); Mean Corpuscular Volume 85 fl (79-97); Platelet Count 210 K/mm3 (140-440); Red Blood Count 4.62 M/mm3 (3.65-5.03); Red Cell Distribution Width 15.8 % (13.2-15.2); White Blood Count 8.8 K/mm3 (4.5-11.0)
[2016-08-30 04:34] LABS: Hematocrit 39.3 % (30.3-42.9); Hemoglobin 12.1 gm/dl (10.1-14.3)
[2016-08-30 04:44] LABS: Anion Gap 13 mmol/L; Blood Urea Nitrogen 27 mg/dL (7-17); Calcium 8.3 mg/dL (8.4-10.2); Carbon Dioxide 36 mmol/L (22-30); Chloride 101.8 mmol/L (98-107); Glucose 123 mg/dL (65-100); Sodium 146 mmol/L (137-145)
[2016-08-30] MEDS: PULMICORT IH SCH ×2 (07:53→19:52)
[2016-08-30] MEDS: BROVANA NEBU IH SCH ×2 (07:54→19:52)
[2016-08-30] MEDS: LEVAQUIN PO SCH (10:33)
[2016-08-30] MEDS: celeXA PO SCH (10:34)
[2016-08-30] MEDS: CALAN SR PO SCH (10:35)
[2016-08-30] MEDS: XANAX PO PRN (10:41)
--- NOTE | 2016-08-30 14:52 | Progress Note ---
Assessment and Plan Assessment and plan: COPD exacerbation Acute on chronic hypercapnic respiratory failure SAMMY Sleep apnea Elevated troponin Spiculated left upper lobe mass suspicious for malignancy - COPD exacerbation management - Cardiology and pulmonary consult appreciated - Echo normal EF - Patient needs placement - Pulmonary consult Disposition -Pending placement History Interval history: Patient was seen and evaluated this morning, patient's breathing is getting better. She is on CPAP machine. Hospitalist Physical - Physical exam Narrative exam: In moderate respiratory distress. The patient appeared well nourished and normally developed. Vital signs as documented. Head exam is unremarkable. No scleral icterus . Neck is without jugular venous distension, thyromegaly, or carotid bruits. Lungs scattered wheezing. Cardiac exam reveals regular rate and Rhythm. First and second heart sounds normal. No murmurs, rubs or gallops. Abdominal exam reveals normal bowel sounds, no masses, no organomegaly and no aortic enlargement. Extremities are nonedematous and both femoral and pedal pulses are normal. 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 No focal weakness. - Constitutional Vitals: Temp Pulse Resp BP Pulse Ox 98.0 F 92 H 20 174/97 97 08/30/16 07:15 08/30/16 14:30 08/30/16 14:30 08/30/16 12:56 08/30/16 14:46 General appearance: Present: no acute distress, other (BiPAP in place; denies any shortness of breath) Results - Labs CBC & Chem 7: 08/30/16 03:37 08/30/16 03:37 Labs: Laboratory Last Values WBC 8.8 K/mm3 (4.5-11.0) 08/30/16 03:37 RBC 4.62 M/mm3 (3.65-5.03) 08/30/16 03:37 Hgb 12.1 gm/dl (10.1-14.3) 08/30/16 03:37 Hct 39.3 % (30.3-42.9) 08/30/16 03:37 MCV 85 fl (79-97) 08/30/16 03:37 MCH 26 pg (28-32) L 08/30/16 03:37 MCHC 31 % (30-34) 08/30/16 03:37 RDW 15.8 % (13.2-15.2) H 08/30/16 03:37 Plt Count 210 K/mm3 (140-440) 08/30/16 03:37 Lymph % (Auto) 11.8 % (13.4-35.0) L 08/30/16 03:37 [place] % (Auto) 13.4 % (0.0-7.3) H 08/30/16 03:37 Eos % (Auto) 0.0 % (0.0-4.3) 08/30/16 03:37 Baso % (Auto) 0.1 % (0.0-1.8) 08/30/16 03:37 Lymph # 1.0 K/mm3 (1.2-5.4) L 08/30/16 03:37 [place] # 1.2 K/mm3 (0.0-0.8) H 08/30/16 03:37 Eos # 0.0 K/mm3 (0.0-0.4) 08/30/16 03:37 Baso # 0.0 K/mm3 (0.0-0.1) 08/30/16 03:37 Add Manual Diff Complete 08/28/16 04:33 Total Counted 100 08/28/16 04:33 Seg Neutrophils % 74.7 % (40.0-70.0) H 08/30/16 03:37 Seg Neuts % (Manual) 87.0 % (40.0-70.0) H 08/28/16 04:33 Band Neutrophils % 10.0 % 08/28/16 04:33 Lymphocytes % (Manual) 2.0 % (13.4-35.0) L 08/28/16 04:33 Reactive Lymphs % (Man) 1.0 % 08/28/16 04:33 Monocytes % (Manual) 0 % (0.0-7.3) 08/28/16 04:33 Eosinophils % (Manual) 0 % (0.0-4.3) 08/28/16 04:33 Basophils % (Manual) 0 % (0.0-1.8) 08/28/16 04:33 Metamyelocytes % 0 % 08/28/16 04:33 Myelocytes % 0 % 08/28/16 04:33 Promyelocytes % 0 % 08/28/16 04:33 Blast Cells % 0 % 08/28/16 04:33 Nucleated RBC % Not Reportable 08/28/16 04:33 Seg Neutrophils # 6.6 K/mm3 (1.8-7.7) 08/30/16 03:37 Seg Neutrophils # Man 7.0 K/mm3 (1.8-7.7) 08/28/16 04:33 Band Neutrophils # 0.8 K/mm3 08/28/16 04:33 Lymphocytes # (Manual) 0.2 K/mm3 (1.2-5.4) L 08/28/16 04:33 Abs React Lymphs (Man) 0.1 K/mm3 08/28/16 04:33 Monocytes # (Manual) 0.0 K/mm3 (0.0-0.8) 08/28/16 04:33 Eosinophils # (Manual) 0.0 K/mm3 (0.0-0.4) 08/28/16 04:33 Basophils # (Manual) 0.0 K/mm3 (0.0-0.1) 08/28/16 04:33 Metamyelocytes # 0.0 K/mm3 08/28/16 04:33 Myelocytes # 0.0 K/mm3 08/28/16 04:33 Promyelocytes # 0.0 K/mm3 08/28/16 04:33 Blast Cells # 0.0 K/mm3 08/28/16 04:33 WBC Morphology Not Reportable 08/28/16 04:33 Hypersegmented Neuts Not Reportable 08/28/16 04:33 Hyposegmented Neuts Not Reportable 08/28/16 04:33 Hypogranular Neuts Not Reportable 08/28/16 04:33 Smudge Cells Not Reportable 08/28/16 04:33 Toxic Granulation Not Reportable 08/28/16 04:33 Toxic Vacuolation Not Reportable 08/28/16 04:33 Dohle Bodies Not Reportable 08/28/16 04:33 Pelger-Huet Anomaly Not Reportable 08/28/16 04:33 José Miguel Rods Not Reportable 08/28/16 04:33 Platelet Estimate Appears normal 08/28/16 04:33 Clumped Platelets Not Reportable 08/28/16 04:33 Plt Clumps, EDTA Not Reportable 08/28/16 04:33 Large Platelets Not Reportable 08/28/16 04:33 Giant Platelets Not Reportable 08/28/16 04:33 Platelet Satelliting Not Reportable 08/28/16 04:33 Plt Morphology Comment Not Reportable 08/28/16 04:33 RBC Morphology Not Reportable 08/28/16 04:33 Dimorphic RBCs Not Reportable 08/28/16 04:33 Polychromasia Few 08/28/16 04:33 Hypochromasia Not Reportable 08/28/16 04:33 Poikilocytosis Not Reportable 08/28/16 04:33 Anisocytosis 1+ 08/28/16 04:33 Microcytosis Not Reportable 08/28/16 04:33 Macrocytosis Not Reportable 08/28/16 04:33 Spherocytes Not Reportable 08/28/16 04:33 Pappenheimer Bodies Not Reportable 08/28/16 04:33 Sickle Cells Not Reportable 08/28/16 04:33 Target Cells Not Reportable 08/28/16 04:33 Tear Drop Cells Not Reportable 08/28/16 04:33 Ovalocytes Not Reportable 08/28/16 04:33 Helmet Cells Not Reportable 08/28/16 04:33 [place] Bodies Not Reportable 08/28/16 04:33 [place] Rings Not Reportable 08/28/16 04:33 [place] Cells Not Reportable 08/28/16 04:33 Bite Cells Not Reportable 08/28/16 04:33 Crenated Cell Not Reportable 08/28/16 04:33 Elliptocytes Not Reportable 08/28/16 04:33 Acanthocytes (Spur) Not Reportable 08/28/16 04:33 Rouleaux Not Reportable 08/28/16 04:33 Hemoglobin C Crystals Not Reportable 08/28/16 04:33 Schistocytes Not Reportable 08/28/16 04:33 Malaria parasites Not Reportable 08/28/16 04:33 [place] Bodies Not Reportable 08/28/16 04:33 Hem Pathologist Commnt No 08/28/16 04:33 PT 13.6 Sec. (12.2-14.9) 08/27/16 03:55 INR 1.05 (0.87-1.13) 08/27/16 03:55 APTT 29.3 Sec. (24.2-36.6) 08/27/16 03:55 POC ABG pH 7.301 (7.35-7.45) L 08/27/16 04:29 POC ABG pCO2 61.7 (35-45) H 08/27/16 04:29 POC ABG pO2 113 (80-105) H 08/27/16 04:29 POC ABG HCO3 30.5 08/27/16 04:29 POC ABG Total CO2 32 08/27/16 04:29 POC ABG O2 Sat 98 08/27/16 04:29 POC ABG Base Excess 4 08/27/16 04:29 FiO2 50 % 08/27/16 04:29 Sodium 144 mmol/L (137-145) 08/29/16 06:01 Potassium 4.8 mmol/L (3.6-5.0) 08/29/16 06:01 Chloride 100.8 mmol/L (98-107) 08/29/16 06:01 Carbon Dioxide 36 mmol/L (22-30) H 08/30/16 03:37 Anion Gap 13 mmol/L 08/29/16 06:01 BUN 27 mg/dL (7-17) H 08/30/16 03:37 Creatinine 0.6 mg/dL (0.7-1.2) L 08/30/16 03:37 Estimated GFR > 60 ml/min 08/30/16 03:37 BUN/Creatinine Ratio 45.00 % 08/30/16 03:37 Glucose 123 mg/dL (65-100) H 08/30/16 03:37 POC Glucose 129 (70-105) H 08/30/16 05:53 Hemoglobin A1c 6.2 % (4-6) H 08/27/16 03:55 Calcium 8.3 mg/dL (8.4-10.2) L 08/30/16 03:37 Magnesium 2.90 mg/dL (1.7-2.3) H 08/29/16 06:01 Total Bilirubin < 0.20 mg/dL (0.1-1.2) 08/28/16 04:33 AST 24 units/L (5-40) 08/28/16 04:33 ALT < 5 units/L (7-56) L 08/28/16 04:33 Alkaline Phosphatase 57 units/L (35-129) 08/28/16 04:33 Total Creatine Kinase 260 units/L (30-135) H 08/27/16 13:17 CK-MB (CK-2) 5.7 ng/mL (0.0-4.0) H 08/27/16 13:17 CK-MB (CK-2) Rel Index 2.1 (0-4) 08/27/16 13:17 Troponin T 0.027 ng/mL (0.00-0.029) 08/27/16 13:17 NT-Pro-B Natriuret Pep 1037 pg/mL (0-900) H 08/27/16 03:55 Total Protein 6.9 g/dL (6.3-8.2) 08/28/16 04:33 Albumin 3.5 g/dL (3.9-5) L 08/28/16 04:33 Albumin/Globulin Ratio 1.0 % 08/28/16 04:33 Triglycerides 65 mg/dL (2-149) 08/27/16 03:55 Cholesterol 122 mg/dL (50-199) 08/27/16 03:55 LDL Cholesterol Direct 60 mg/dL (50-130) 08/27/16 03:55 HDL Cholesterol 49 mg/dL (40-59) 08/27/16 03:55 Cholesterol/HDL Ratio 2.48 % 08/27/16 03:55 TSH 0.244 mlU/mL (0.270-4.200) L 08/27/16 03:55 Free T4 1.28 ng/dL (0.76-1.46) 08/27/16 03:55 Urine Color Yellow (Yellow) 08/27/16 06:41 Urine Turbidity Clear (Clear) 08/27/16 06:41 Urine pH 5.0 (5.0-7.0) 08/27/16 06:41 Ur Specific [place] 1.033 (1.003-1.030) H 08/27/16 06:41 Urine Protein 100 mg/dl mg/dL (Negative) 08/27/16 06:41 Urine Glucose (UA) Neg mg/dL (Negative) 08/27/16 06:41 Urine Ketones Neg mg/dL (Negative) 08/27/16 06:41 Urine Blood Neg (Negative) 08/27/16 06:41 Urine Nitrite Neg (Negative) 08/27/16 06:41 Urine Bilirubin Neg (Negative) 08/27/16 06:41 Urine Urobilinogen < 2.0 mg/dL (<2.0) 08/27/16 06:41 Ur Leukocyte Esterase Neg (Negative) 08/27/16 06:41 Urine WBC (Auto) 4.0 /HPF (0.0-6.0) 08/27/16 06:41 Urine RBC (Auto) 5.0 /HPF (0.0-6.0) 08/27/16 06:41 U Epithel Cells (Auto) 3.0 /HPF (0-13.0) 08/27/16 06:41 Granular Casts 3 /LPF 08/27/16 06:41 Urine Mucus Few /HPF 08/27/16 06:41
--- NOTE | 2016-08-30 15:17 | Progress Note ---
Assessment and Plan Imp: 1. Severe centrilobular/bullous emphysema 2. COPD exac. 3. Acute bronchitis 4. A/C respiratory failure, hypoxia and hypercapnea 5. RML atelectasis, probably mucous plugging 6. EFRAÍN pulm nodule Rec: 1. Cont. current dose of Solumedrol/Levaquin 2. Pulmicort/Brovana/Duonebs; she is supposed to be on Theophylline chronically -> resume 3. BIPAP QHS/PRN 4. Wean off HFNC as tolerated 5. Mucinex BID 6. Not a candidate for bronch or CT guided biopsy due to COPD exacerbation/ hypoxia; recommend outpatient PET 7. Complex decision-making Plan of care reviewed w/ patient, she understands/agrees Subjective Date of service: 08/30/16 Principal diagnosis: A/C respiratory failure Interval history: No events. On BIPAP overnight. Now on HFNC. Still with SOB, wheezing, chest tightness. Has cough, cannot bring up any sputum/too thick. No new complaints. Active Medications Acetaminophen (Tylenol) 650 mg PO Q4H PRN PRN Reason: Pain MILD(1-3)/Fever >100.5/BLISS Albuterol (Proventil) 2.5 mg IH Q3HRT PRN PRN Reason: Wheezing Albuterol/Ipratropium (Duoneb 0.5 Mg-3 Mg/3 Ml Soln) 1 ampul IH Q6HRT [facility] Last Admin: 08/30/16 14:17 Dose: 1 ampul Alprazolam (Xanax) 0.5 mg PO TID PRN PRN Reason: Anxiety Last Admin: 08/30/16 10:41 Dose: 0.5 mg Arformoterol Tartrate (Brovana Nebu) 15 mcg IH Q12HRT [facility] Last Admin: 08/30/16 07:54 Dose: Not Given Bisacodyl (Dulcolax) 10 mg MD QDAY PRN PRN Reason: Constipation unrelieved by MOM Budesonide (Pulmicort) 0.5 mg IH Q12HRT [facility] Last Admin: 08/30/16 07:53 Dose: 0.5 mg Citalopram Hydrobromide (Celexa) 20 mg PO QDAY [facility] Last Admin: 08/30/16 10:34 Dose: 20 mg Enoxaparin Sodium (Lovenox) 40 mg SUB-Q QDAY@2200 [facility] Last Admin: 08/29/16 21:38 Dose: 40 mg Hydromorphone HCl (Dilaudid) 0.5 mg IV Q3H PRN PRN Reason: Pain , Severe (7-10) Ibuprofen (Motrin) 800 mg PO Q8HR PRN PRN Reason: Pain Levofloxacin (Levaquin) 750 mg PO Q24HR [facility] Last Admin: 08/30/16 10:33 Dose: 750 mg Magnesium Hydroxide (Milk Of Magnesia) 30 ml PO Q4H PRN PRN Reason: Constipation Methylprednisolone Sodium Succinate (Solu-Medrol) 60 mg IV Q6HR [facility] Last Admin: 08/30/16 13:22 Dose: 60 mg Montelukast Sodium (Singulair) 10 mg PO QPM [facility] Last Admin: 08/29/16 18:31 Dose: 10 mg Ondansetron HCl (Zofran) 4 mg IV Q8H PRN PRN Reason: N/V unrelieved by Reglan Oxycodone/Acetaminophen (Percocet 5/325) 1 tab PO Q6H PRN PRN Reason: Pain, Moderate (4-6) Sodium Chloride (Sodium Chloride Flush Syringe 10 Ml) 10 ml IV PRN PRN PRN Reason: LINE FLUSH Verapamil HCl (Calan Sr) 240 mg PO QDAY [facility] Last Admin: 08/30/16 10:35 Dose: 240 mg Zolpidem Tartrate (Ambien) 5 mg PO QHS PRN PRN Reason: Insomnia Objective Vital Signs - 12hr 08/30/16 08/30/16 08/30/16 03:20 03:37 05:58 Temperature 98.1 F Pulse Rate 79 83 Pulse Rate [ Anterior Bilateral Throughout] Pulse Rate [ 80 Left Radial] Respiratory 20 20 Rate Respiratory Rate [Anterior Bilateral Throughout] Blood Pressure Blood Pressure 141/72 [Left Arm] Blood Pressure [Right Radial Artery] O2 Sat by Pulse 95 Oximetry 08/30/16 08/30/16 08/30/16 07:15 07:43 07:54 Temperature 98.0 F Pulse Rate 90 Pulse Rate [ 78 Anterior Bilateral Throughout] Pulse Rate [ Left Radial] Respiratory 16 16 Rate Respiratory 18 Rate [Anterior Bilateral Throughout] Blood Pressure Blood Pressure [Left Arm] Blood Pressure 161/91 [Right Radial Artery] O2 Sat by Pulse 92 93 Oximetry 08/30/16 08/30/16 08/30/16 08:08 10:35 11:50 Temperature Pulse Rate 80 Pulse Rate [ 83 Anterior Bilateral Throughout] Pulse Rate [ Left Radial] Respiratory Rate Respiratory 24 Rate [Anterior Bilateral Throughout] Blood Pressure 161/91 Blood Pressure [Left Arm] Blood Pressure [Right Radial Artery] O2 Sat by Pulse 94 Oximetry 08/30/16 08/30/16 08/30/16 12:56 14:17 14:30 Temperature Pulse Rate Pulse Rate [ 97 H 92 H Anterior Bilateral Throughout] Pulse Rate [ Left Radial] Respiratory Rate Respiratory 20 20 Rate [Anterior Bilateral Throughout] Blood Pressure Blood Pressure [Left Arm] Blood Pressure 174/97 [Right Radial Artery] O2 Sat by Pulse Oximetry 08/30/16 14:46 Temperature Pulse Rate Pulse Rate [ Anterior Bilateral Throughout] Pulse Rate [ Left Radial] Respiratory Rate Respiratory Rate [Anterior Bilateral Throughout] Blood Pressure Blood Pressure [Left Arm] Blood Pressure [Right Radial Artery] O2 Sat by Pulse 97 Oximetry Constitutional: alert, other (awake) Eyes: non-icteric ENT: oropharynx moist Neck: supple Effort: mildly labored Ascultation: Bilateral: wheezes Cardiovascular: regular rate and rhythm (no mrg) Gastrointestinal: normoactive bowel sounds, soft, non-tender, non-distended Integumentary: normal Extremities: no cyanosis, no edema, pink and warm Neurologic: normal mental status, non-focal exam Psychiatric: mood appropriate, affect normal CBC and BMP: 08/30/16 03:37 08/30/16 03:37 ABG, PT/INR, D-dimer: ABG POC ABG pH 7.301 (7.35-7.45) L 08/27/16 04:29 POC ABG pCO2 61.7 (35-45) H 08/27/16 04:29 POC ABG pO2 113 (80-105) H 08/27/16 04:29 POC ABG HCO3 30.5 08/27/16 04:29 POC ABG Total CO2 32 08/27/16 04:29 POC ABG O2 Sat 98 08/27/16 04:29 PT/INR, D-dimer PT 13.6 Sec. (12.2-14.9) 08/27/16 03:55 INR 1.05 (0.87-1.13) 08/27/16 03:55 Abnormal lab findings: Abnormal Labs 08/27/16 08/27/16 08/27/16 06:41 08:13 13:17 MCH RDW Lymph % (Auto) [place] % (Auto) Lymph # [place] # Seg Neutrophils % Seg Neuts % (Manual) Lymphocytes % (Manual) Lymphocytes # (Manual) Carbon Dioxide BUN Creatinine Glucose POC Glucose Calcium Magnesium ALT Total Creatine Kinase 261 H 260 H CK-MB (CK-2) 6.5 H 5.7 H Troponin T 0.067 H Albumin Ur Specific [place] 1.033 H 08/28/16 08/28/16 08/29/16 04:33 04:33 06:01 MCH 27 L 27 L RDW 15.7 H 15.9 H Lymph % (Auto) 10.5 L [place] % (Auto) Lymph # 0.9 L [place] # Seg Neutrophils % 84.6 H Seg Neuts % (Manual) 87.0 H Lymphocytes % (Manual) 2.0 L Lymphocytes # (Manual) 0.2 L Carbon Dioxide 31 H BUN 24 H Creatinine Glucose 156 H POC Glucose Calcium Magnesium ALT < 5 L Total Creatine Kinase CK-MB (CK-2) Troponin T Albumin 3.5 L Ur Specific [place] 08/29/16 08/29/16 08/29/16 06:01 06:01 17:56 MCH RDW Lymph % (Auto) [place] % (Auto) Lymph # [place] # Seg Neutrophils % Seg Neuts % (Manual) Lymphocytes % (Manual) Lymphocytes # (Manual) Carbon Dioxide 35 H BUN 34 H Creatinine Glucose 102 H POC Glucose 210 H Calcium 8.3 L Magnesium 2.90 H ALT Total Creatine Kinase CK-MB (CK-2) Troponin T Albumin Ur Specific [place] 08/30/16 08/30/16 08/30/16 03:37 03:37 05:53 MCH 26 L RDW 15.8 H Lymph % (Auto) 11.8 L [place] % (Auto) 13.4 H Lymph # 1.0 L [place] # 1.2 H Seg Neutrophils % 74.7 H Seg Neuts % (Manual) Lymphocytes % (Manual) Lymphocytes # (Manual) Carbon Dioxide 36 H BUN 27 H Creatinine 0.6 L Glucose 123 H POC Glucose 129 H Calcium 8.3 L Magnesium ALT Total Creatine Kinase CK-MB (CK-2) Troponin T Albumin Ur Specific [place] Chest x-ray: report reviewed, image reviewed CT scan - chest: report reviewed, image reviewed
[2016-08-30] MEDS: SINGULAIR PO SCH (17:25)
[2016-08-30] MEDS: MUCINEX ER PO SCH ×2 (17:26→22:13)
[2016-08-30] MEDS ORDERED: THEODUR PO SCH (22:00)
[2016-08-30] MEDS: THEO-24 PO SCH (22:12)
[2016-08-30] MEDS: LOVENOX SUB-Q SCH (22:13)
[2016-08-31] MEDS: DUONEB 0.5 MG-3 MG/3 ML SOLN IH SCH ×4 (02:00→21:05)
[2016-08-31 06:50] LABS: Basophils % (Auto) 0.1 % (0.0-1.8); Hematocrit 38.5 % (30.3-42.9); Hemoglobin 12.2 gm/dl (10.1-14.3); Mean Corpuscular HGB Conc 32 % (30-34); Mean Corpuscular Hemoglobin 26 pg (28-32); Mean Corpuscular Volume 83 fl (79-97); Platelet Count 222 K/mm3 (140-440); Red Blood Count 4.63 M/mm3 (3.65-5.03); Red Cell Distribution Width 15.1 % (13.2-15.2); White Blood Count 6.9 K/mm3 (4.5-11.0)
[2016-08-31 07:01] LABS: Anion Gap 15 mmol/L; Blood Urea Nitrogen 23 mg/dL (7-17); Carbon Dioxide 36 mmol/L (22-30); Chloride 98.9 mmol/L (98-107); Glucose 126 mg/dL (65-100); Potassium 4.6 mmol/L (3.6-5.0); Sodium 145 mmol/L (137-145)
[2016-08-31] MEDS: BROVANA NEBU IH SCH ×2 (07:33→21:06)
[2016-08-31] MEDS: PULMICORT IH SCH ×2 (07:33→21:06)
[2016-08-31] MEDS: CALAN SR PO SCH (09:36)
[2016-08-31] MEDS: celeXA PO SCH (09:37)
[2016-08-31] MEDS: LEVAQUIN PO SCH (09:37)
[2016-08-31] MEDS: MUCINEX ER PO SCH ×2 (09:37→21:00)
[2016-08-31] MEDS: XANAX PO PRN ×2 (11:10→21:00)
--- NOTE | 2016-08-31 13:48 | Progress Note ---
Assessment and Plan Assessment and plan: COPD exacerbation Acute on chronic hypercapnic respiratory failure SAMMY Sleep apnea Elevated troponin Spiculated left upper lobe mass suspicious for malignancy - COPD exacerbation management - Cardiology and pulmonary consult appreciated - Echo normal EF - Patient needs placement - Pulmonary consult appreciated - Patient needs workup for malignancy as an outpatient Disposition - Patient is on high flow oxygen, patient needs to be in LTACH or inpatient rehab. History Interval history: Patient was seen and evaluated this morning, patient's breathing is getting better. She is on CPAP. On high flow oxygen. Hospitalist Physical - Physical exam Narrative exam: In moderate respiratory distress. The patient appeared well nourished and normally developed. Vital signs as documented. Head exam is unremarkable. No scleral icterus . Neck is without jugular venous distension, thyromegaly, or carotid bruits. Lungs scattered wheezing. Cardiac exam reveals regular rate and Rhythm. First and second heart sounds normal. No murmurs, rubs or gallops. Abdominal exam reveals normal bowel sounds, no masses, no organomegaly and no aortic enlargement. Extremities are nonedematous and both femoral and pedal pulses are normal. 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 No focal weakness. - Constitutional Vitals: Temp Pulse Resp BP Pulse Ox 97.7 F 73 16 187/100 96 08/31/16 10:02 08/31/16 10:02 08/31/16 10:02 08/31/16 10:02 08/31/16 10:02 General appearance: Present: no acute distress, other (BiPAP in place; denies any shortness of breath) Results - Labs CBC & Chem 7: 08/31/16 05:44 08/31/16 05:44 Labs: Laboratory Last Values WBC 6.9 K/mm3 (4.5-11.0) 08/31/16 05:44 RBC 4.63 M/mm3 (3.65-5.03) 08/31/16 05:44 Hgb 12.2 gm/dl (10.1-14.3) 08/31/16 05:44 Hct 38.5 % (30.3-42.9) 08/31/16 05:44 MCV 83 fl (79-97) 08/31/16 05:44 MCH 26 pg (28-32) L 08/31/16 05:44 MCHC 32 % (30-34) 08/31/16 05:44 RDW 15.1 % (13.2-15.2) 08/31/16 05:44 Plt Count 222 K/mm3 (140-440) 08/31/16 05:44 Lymph % (Auto) 10.0 % (13.4-35.0) L 08/31/16 05:44 [place] % (Auto) 7.9 % (0.0-7.3) H 08/31/16 05:44 Eos % (Auto) 0.0 % (0.0-4.3) 08/31/16 05:44 Baso % (Auto) 0.1 % (0.0-1.8) 08/31/16 05:44 Lymph # 0.7 K/mm3 (1.2-5.4) L 08/31/16 05:44 [place] # 0.5 K/mm3 (0.0-0.8) 08/31/16 05:44 Eos # 0.0 K/mm3 (0.0-0.4) 08/31/16 05:44 Baso # 0.0 K/mm3 (0.0-0.1) 08/31/16 05:44 Add Manual Diff Complete 08/28/16 04:33 Total Counted 100 08/28/16 04:33 Seg Neutrophils % 82.0 % (40.0-70.0) H 08/31/16 05:44 Seg Neuts % (Manual) 87.0 % (40.0-70.0) H 08/28/16 04:33 Band Neutrophils % 10.0 % 08/28/16 04:33 Lymphocytes % (Manual) 2.0 % (13.4-35.0) L 08/28/16 04:33 Reactive Lymphs % (Man) 1.0 % 08/28/16 04:33 Monocytes % (Manual) 0 % (0.0-7.3) 08/28/16 04:33 Eosinophils % (Manual) 0 % (0.0-4.3) 08/28/16 04:33 Basophils % (Manual) 0 % (0.0-1.8) 08/28/16 04:33 Metamyelocytes % 0 % 08/28/16 04:33 Myelocytes % 0 % 08/28/16 04:33 Promyelocytes % 0 % 08/28/16 04:33 Blast Cells % 0 % 08/28/16 04:33 Nucleated RBC % Not Reportable 08/28/16 04:33 Seg Neutrophils # 5.6 K/mm3 (1.8-7.7) 08/31/16 05:44 Seg Neutrophils # Man 7.0 K/mm3 (1.8-7.7) 08/28/16 04:33 Band Neutrophils # 0.8 K/mm3 08/28/16 04:33 Lymphocytes # (Manual) 0.2 K/mm3 (1.2-5.4) L 08/28/16 04:33 Abs React Lymphs (Man) 0.1 K/mm3 08/28/16 04:33 Monocytes # (Manual) 0.0 K/mm3 (0.0-0.8) 08/28/16 04:33 Eosinophils # (Manual) 0.0 K/mm3 (0.0-0.4) 08/28/16 04:33 Basophils # (Manual) 0.0 K/mm3 (0.0-0.1) 08/28/16 04:33 Metamyelocytes # 0.0 K/mm3 08/28/16 04:33 Myelocytes # 0.0 K/mm3 08/28/16 04:33 Promyelocytes # 0.0 K/mm3 08/28/16 04:33 Blast Cells # 0.0 K/mm3 08/28/16 04:33 WBC Morphology Not Reportable 08/28/16 04:33 Hypersegmented Neuts Not Reportable 08/28/16 04:33 Hyposegmented Neuts Not Reportable 08/28/16 04:33 Hypogranular Neuts Not Reportable 08/28/16 04:33 Smudge Cells Not Reportable 08/28/16 04:33 Toxic Granulation Not Reportable 08/28/16 04:33 Toxic Vacuolation Not Reportable 08/28/16 04:33 Dohle Bodies Not Reportable 08/28/16 04:33 Pelger-Huet Anomaly Not Reportable 08/28/16 04:33 José Miguel Rods Not Reportable 08/28/16 04:33 Platelet Estimate Appears normal 08/28/16 04:33 Clumped Platelets Not Reportable 08/28/16 04:33 Plt Clumps, EDTA Not Reportable 08/28/16 04:33 Large Platelets Not Reportable 08/28/16 04:33 Giant Platelets Not Reportable 08/28/16 04:33 Platelet Satelliting Not Reportable 08/28/16 04:33 Plt Morphology Comment Not Reportable 08/28/16 04:33 RBC Morphology Not Reportable 08/28/16 04:33 Dimorphic RBCs Not Reportable 08/28/16 04:33 Polychromasia Few 08/28/16 04:33 Hypochromasia Not Reportable 08/28/16 04:33 Poikilocytosis Not Reportable 08/28/16 04:33 Anisocytosis 1+ 08/28/16 04:33 Microcytosis Not Reportable 08/28/16 04:33 Macrocytosis Not Reportable 08/28/16 04:33 Spherocytes Not Reportable 08/28/16 04:33 Pappenheimer Bodies Not Reportable 08/28/16 04:33 Sickle Cells Not Reportable 08/28/16 04:33 Target Cells Not Reportable 08/28/16 04:33 Tear Drop Cells Not Reportable 08/28/16 04:33 Ovalocytes Not Reportable 08/28/16 04:33 Helmet Cells Not Reportable 08/28/16 04:33 Steward-Dalhart Bodies Not Reportable 08/28/16 04:33 Rosamond Rings Not Reportable 08/28/16 04:33 [place]o Cells Not Reportable 08/28/16 04:33 Bite Cells Not Reportable 08/28/16 04:33 Crenated Cell Not Reportable 08/28/16 04:33 Elliptocytes Not Reportable 08/28/16 04:33 Acanthocytes (Spur) Not Reportable 08/28/16 04:33 Rouleaux Not Reportable 08/28/16 04:33 Hemoglobin C Crystals Not Reportable 08/28/16 04:33 Schistocytes Not Reportable 08/28/16 04:33 Malaria parasites Not Reportable 08/28/16 04:33 Popeye Bodies Not Reportable 08/28/16 04:33 Hem Pathologist Commnt No 08/28/16 04:33 PT 13.6 Sec. (12.2-14.9) 08/27/16 03:55 INR 1.05 (0.87-1.13) 08/27/16 03:55 APTT 29.3 Sec. (24.2-36.6) 08/27/16 03:55 POC ABG pH 7.301 (7.35-7.45) L 08/27/16 04:29 POC ABG pCO2 61.7 (35-45) H 08/27/16 04:29 POC ABG pO2 113 (80-105) H 08/27/16 04:29 POC ABG HCO3 30.5 08/27/16 04:29 POC ABG Total CO2 32 08/27/16 04:29 POC ABG O2 Sat 98 08/27/16 04:29 POC ABG Base Excess 4 08/27/16 04:29 FiO2 50 % 08/27/16 04:29 Sodium 145 mmol/L (137-145) 08/31/16 05:44 Potassium 4.6 mmol/L (3.6-5.0) 08/31/16 05:44 Chloride 98.9 mmol/L (98-107) 08/31/16 05:44 Carbon Dioxide 36 mmol/L (22-30) H 08/31/16 05:44 Anion Gap 15 mmol/L 08/31/16 05:44 BUN 23 mg/dL (7-17) H 08/31/16 05:44 Creatinine 0.5 mg/dL (0.7-1.2) L 08/31/16 05:44 Estimated GFR > 60 ml/min 08/31/16 05:44 BUN/Creatinine Ratio 46.00 % 08/31/16 05:44 Glucose 126 mg/dL (65-100) H 08/31/16 05:44 POC Glucose 113 (70-105) H 08/31/16 11:51 Hemoglobin A1c 6.2 % (4-6) H 08/27/16 03:55 Calcium 8.0 mg/dL (8.4-10.2) L 08/31/16 05:44 Magnesium 2.90 mg/dL (1.7-2.3) H 08/29/16 06:01 Total Bilirubin < 0.20 mg/dL (0.1-1.2) 08/28/16 04:33 AST 24 units/L (5-40) 08/28/16 04:33 ALT < 5 units/L (7-56) L 08/28/16 04:33 Alkaline Phosphatase 57 units/L (35-129) 08/28/16 04:33 Total Creatine Kinase 260 units/L (30-135) H 08/27/16 13:17 CK-MB (CK-2) 5.7 ng/mL (0.0-4.0) H 08/27/16 13:17 CK-MB (CK-2) Rel Index 2.1 (0-4) 08/27/16 13:17 Troponin T 0.027 ng/mL (0.00-0.029) 08/27/16 13:17 NT-Pro-B Natriuret Pep 1037 pg/mL (0-900) H 08/27/16 03:55 Total Protein 6.9 g/dL (6.3-8.2) 08/28/16 04:33 Albumin 3.5 g/dL (3.9-5) L 08/28/16 04:33 Albumin/Globulin Ratio 1.0 % 08/28/16 04:33 Triglycerides 65 mg/dL (2-149) 08/27/16 03:55 Cholesterol 122 mg/dL (50-199) 08/27/16 03:55 LDL Cholesterol Direct 60 mg/dL (50-130) 08/27/16 03:55 HDL Cholesterol 49 mg/dL (40-59) 08/27/16 03:55 Cholesterol/HDL Ratio 2.48 % 08/27/16 03:55 TSH 0.244 mlU/mL (0.270-4.200) L 08/27/16 03:55 Free T4 1.28 ng/dL (0.76-1.46) 08/27/16 03:55 Urine Color Yellow (Yellow) 08/27/16 06:41 Urine Turbidity Clear (Clear) 08/27/16 06:41 Urine pH 5.0 (5.0-7.0) 08/27/16 06:41 Ur Specific [place] 1.033 (1.003-1.030) H 08/27/16 06:41 Urine Protein 100 mg/dl mg/dL (Negative) 08/27/16 06:41 Urine Glucose (UA) Neg mg/dL (Negative) 08/27/16 06:41 Urine Ketones Neg mg/dL (Negative) 08/27/16 06:41 Urine Blood Neg (Negative) 08/27/16 06:41 Urine Nitrite Neg (Negative) 08/27/16 06:41 Urine Bilirubin Neg (Negative) 08/27/16 06:41 Urine Urobilinogen < 2.0 mg/dL (<2.0) 08/27/16 06:41 Ur Leukocyte Esterase Neg (Negative) 08/27/16 06:41 Urine WBC (Auto) 4.0 /HPF (0.0-6.0) 08/27/16 06:41 Urine RBC (Auto) 5.0 /HPF (0.0-6.0) 08/27/16 06:41 U Epithel Cells (Auto) 3.0 /HPF (0-13.0) 08/27/16 06:41 Granular Casts 3 /LPF 08/27/16 06:41 Urine Mucus Few /HPF 08/27/16 06:41
--- NOTE | 2016-08-31 13:54 | Progress Note ---
Assessment and Plan Imp: 1. Severe centrilobular/bullous emphysema 2. COPD exac. 3. Acute bronchitis 4. A/C respiratory failure, hypoxia and hypercapnea 5. RML atelectasis, probably mucous plugging 6. EFRAÍN pulm nodule Rec: 1. Cont. current dose of Solumedrol/Levaquin 2. Pulmicort/Brovana/Duonebs; she is supposed to be on Theophylline chronically -> resume 3. BIPAP QHS/PRN 4. Wean off HFNC as tolerated 5. Mucinex BID 6. Not a candidate for bronch or CT guided biopsy due to COPD exacerbation/ hypoxia; recommend outpatient PET 7. Complex decision-making Plan of care reviewed w/ patient, she understands/agrees Subjective Date of service: 08/31/16 Principal diagnosis: A/C respiratory failure Interval history: No events. On BIPAP overnight. Now on HFNC. Still with SOB, wheezing, chest tightness. Has cough, sputum better w/ Mucinex. No new complaints. Active Medications Acetaminophen (Tylenol) 650 mg PO Q4H PRN PRN Reason: Pain MILD(1-3)/Fever >100.5/BLISS Albuterol (Proventil) 2.5 mg IH Q3HRT PRN PRN Reason: Wheezing Albuterol/Ipratropium (Duoneb 0.5 Mg-3 Mg/3 Ml Soln) 1 ampul IH Q6HRT [facility] Last Admin: 08/31/16 13:10 Dose: 1 ampul Alprazolam (Xanax) 0.5 mg PO TID PRN PRN Reason: Anxiety Last Admin: 08/31/16 11:10 Dose: 0.5 mg Arformoterol Tartrate (Brovana Nebu) 15 mcg IH Q12HRT [facility] Last Admin: 08/31/16 07:33 Dose: 15 mcg Bisacodyl (Dulcolax) 10 mg [place] QDAY PRN PRN Reason: Constipation unrelieved by MOM Budesonide (Pulmicort) 0.5 mg IH Q12HRT [facility] Last Admin: 08/31/16 07:33 Dose: 0.5 mg Citalopram Hydrobromide (Celexa) 20 mg PO QDAY [facility] Last Admin: 08/31/16 09:37 Dose: 20 mg Enoxaparin Sodium (Lovenox) 40 mg SUB-Q QDAY@2200 [facility] Last Admin: 08/30/16 22:13 Dose: 40 mg Guaifenesin (Mucinex Er) 600 mg PO BID [facility] Last Admin: 08/31/16 09:37 Dose: 600 mg Hydromorphone HCl (Dilaudid) 0.5 mg IV Q3H PRN PRN Reason: Pain , Severe (7-10) Ibuprofen (Motrin) 800 mg PO Q8HR PRN PRN Reason: Pain Levofloxacin (Levaquin) 750 mg PO Q24HR [facility] Last Admin: 08/31/16 09:37 Dose: 750 mg Magnesium Hydroxide (Milk Of Magnesia) 30 ml PO Q4H PRN PRN Reason: Constipation Methylprednisolone Sodium Succinate (Solu-Medrol) 60 mg IV Q6HR [facility] Last Admin: 08/31/16 12:27 Dose: 60 mg Montelukast Sodium (Singulair) 10 mg PO QPM [facility] Last Admin: 08/30/16 17:25 Dose: 10 mg Ondansetron HCl (Zofran) 4 mg IV Q8H PRN PRN Reason: N/V unrelieved by Reglan Oxycodone/Acetaminophen (Percocet 5/325) 1 tab PO Q6H PRN PRN Reason: Pain, Moderate (4-6) Sodium Chloride (Sodium Chloride Flush Syringe 10 Ml) 10 ml IV PRN PRN PRN Reason: LINE FLUSH Theophylline (Raymond-24) 400 mg PO QHS [facility] Last Admin: 08/30/16 22:12 Dose: 400 mg Verapamil HCl (Calan Sr) 240 mg PO QDAY [facility] Last Admin: 08/31/16 09:36 Dose: 240 mg Zolpidem Tartrate (Ambien) 5 mg PO QHS PRN PRN Reason: Insomnia Objective Vital Signs - 12hr 08/31/16 08/31/16 08/31/16 01:55 02:08 02:57 Temperature Pulse Rate Pulse Rate [ 74 77 Anterior Bilateral Throughout] Pulse Rate [ 75 From Monitor] Pulse Rate [ Left Radial] Respiratory Rate Respiratory 28 H 23 Rate [Anterior Bilateral Throughout] Blood Pressure Blood Pressure [Left Arm] Blood Pressure 156/87 [Right Radial Artery] O2 Sat by Pulse Oximetry 08/31/16 08/31/16 08/31/16 03:30 04:00 07:33 Temperature 97.9 F Pulse Rate 77 Pulse Rate [ 95 H Anterior Bilateral Throughout] Pulse Rate [ 72 From Monitor] Pulse Rate [ Left Radial] Respiratory 24 Rate Respiratory 20 Rate [Anterior Bilateral Throughout] Blood Pressure Blood Pressure [Left Arm] Blood Pressure 140/89 [Right Radial Artery] O2 Sat by Pulse 97 96 Oximetry 08/31/16 08/31/16 08/31/16 07:35 07:45 09:00 Temperature Pulse Rate 95 H Pulse Rate [ 87 Anterior Bilateral Throughout] Pulse Rate [ From Monitor] Pulse Rate [ Left Radial] Respiratory 20 Rate Respiratory 20 Rate [Anterior Bilateral Throughout] Blood Pressure Blood Pressure [Left Arm] Blood Pressure [Right Radial Artery] O2 Sat by Pulse 96 95 Oximetry 08/31/16 08/31/16 09:36 10:02 Temperature 97.7 F Pulse Rate 72 Pulse Rate [ Anterior Bilateral Throughout] Pulse Rate [ From Monitor] Pulse Rate [ 73 Left Radial] Respiratory 16 Rate Respiratory Rate [Anterior Bilateral Throughout] Blood Pressure 140/89 Blood Pressure 187/100 [Left Arm] Blood Pressure [Right Radial Artery] O2 Sat by Pulse 96 Oximetry Constitutional: alert, other (awake) Eyes: non-icteric ENT: oropharynx moist Neck: supple Effort: mildly labored Ascultation: Bilateral: wheezes (better) Cardiovascular: regular rate and rhythm (no mrg) Gastrointestinal: normoactive bowel sounds, soft, non-tender, non-distended Integumentary: normal Extremities: no cyanosis, no edema, pink and warm Neurologic: normal mental status, non-focal exam Psychiatric: mood appropriate, affect normal CBC and BMP: 08/31/16 05:44 08/31/16 05:44 ABG, PT/INR, D-dimer: ABG POC ABG pH 7.301 (7.35-7.45) L 08/27/16 04:29 POC ABG pCO2 61.7 (35-45) H 08/27/16 04:29 POC ABG pO2 113 (80-105) H 08/27/16 04:29 POC ABG HCO3 30.5 08/27/16 04:29 POC ABG Total CO2 32 08/27/16 04:29 POC ABG O2 Sat 98 08/27/16 04:29 PT/INR, D-dimer PT 13.6 Sec. (12.2-14.9) 08/27/16 03:55 INR 1.05 (0.87-1.13) 08/27/16 03:55 Abnormal lab findings: Abnormal Labs 08/27/16 08/27/16 08/27/16 06:41 08:13 13:17 MCH RDW Lymph % (Auto) [place] % (Auto) Lymph # [place] # Seg Neutrophils % Seg Neuts % (Manual) Lymphocytes % (Manual) Lymphocytes # (Manual) Carbon Dioxide BUN Creatinine Glucose POC Glucose Calcium Magnesium ALT Total Creatine Kinase 261 H 260 H CK-MB (CK-2) 6.5 H 5.7 H Troponin T 0.067 H Albumin Ur Specific [place] 1.033 H 08/28/16 08/28/16 08/29/16 04:33 04:33 06:01 MCH 27 L 27 L RDW 15.7 H 15.9 H Lymph % (Auto) 10.5 L [place] % (Auto) Lymph # 0.9 L [place] # Seg Neutrophils % 84.6 H Seg Neuts % (Manual) 87.0 H Lymphocytes % (Manual) 2.0 L Lymphocytes # (Manual) 0.2 L Carbon Dioxide 31 H BUN 24 H Creatinine Glucose 156 H POC Glucose Calcium Magnesium ALT < 5 L Total Creatine Kinase CK-MB (CK-2) Troponin T Albumin 3.5 L Ur Specific [place] 08/29/16 08/29/16 08/29/16 06:01 06:01 17:56 MCH RDW Lymph % (Auto) [place] % (Auto) Lymph # [place] # Seg Neutrophils % Seg Neuts % (Manual) Lymphocytes % (Manual) Lymphocytes # (Manual) Carbon Dioxide 35 H BUN 34 H Creatinine Glucose 102 H POC Glucose 210 H Calcium 8.3 L Magnesium 2.90 H ALT Total Creatine Kinase CK-MB (CK-2) Troponin T Albumin Ur Specific [place] 08/30/16 08/30/16 08/30/16 03:37 03:37 05:53 MCH 26 L RDW 15.8 H Lymph % (Auto) 11.8 L [place] % (Auto) 13.4 H Lymph # 1.0 L [place] # 1.2 H Seg Neutrophils % 74.7 H Seg Neuts % (Manual) Lymphocytes % (Manual) Lymphocytes # (Manual) Carbon Dioxide 36 H BUN 27 H Creatinine 0.6 L Glucose 123 H POC Glucose 129 H Calcium 8.3 L Magnesium ALT Total Creatine Kinase CK-MB (CK-2) Troponin T Albumin Ur Specific [place] 08/30/16 08/30/16 08/30/16 12:03 18:20 23:32 MCH RDW Lymph % (Auto) [place] % (Auto) Lymph # [place] # Seg Neutrophils % Seg Neuts % (Manual) Lymphocytes % (Manual) Lymphocytes # (Manual) Carbon Dioxide BUN Creatinine Glucose POC Glucose 141 H 161 H 182 H Calcium Magnesium ALT Total Creatine Kinase CK-MB (CK-2) Troponin T Albumin Ur Specific [place] 08/31/16 08/31/16 08/31/16 05:35 05:44 05:44 MCH 26 L RDW Lymph % (Auto) 10.0 L [place] % (Auto) 7.9 H Lymph # 0.7 L [place] # Seg Neutrophils % 82.0 H Seg Neuts % (Manual) Lymphocytes % (Manual) Lymphocytes # (Manual) Carbon Dioxide 36 H BUN 23 H Creatinine 0.5 L Glucose 126 H POC Glucose 122 H Calcium 8.0 L Magnesium ALT Total Creatine Kinase CK-MB (CK-2) Troponin T Albumin Ur Specific [place] 08/31/16 08/31/16 07:32 11:51 MCH RDW Lymph % (Auto) [place] % (Auto) Lymph # [place] # Seg Neutrophils % Seg Neuts % (Manual) Lymphocytes % (Manual) Lymphocytes # (Manual) Carbon Dioxide BUN Creatinine Glucose POC Glucose 126 H 113 H Calcium Magnesium ALT Total Creatine Kinase CK-MB (CK-2) Troponin T Albumin Ur Specific [place] Chest x-ray: report reviewed, image reviewed CT scan - chest: report reviewed, image reviewed
[2016-08-31] MEDS: SINGULAIR PO SCH (18:32)
[2016-08-31] MEDS: THEO-24 PO SCH (21:00)
[2016-08-31] MEDS: LOVENOX SUB-Q SCH (21:00)
[2016-09-01] MEDS: DUONEB 0.5 MG-3 MG/3 ML SOLN IH SCH ×4 (02:24→19:47)
[2016-09-01] MEDS: BROVANA NEBU IH SCH ×2 (07:40→19:47)
[2016-09-01] MEDS: PULMICORT IH SCH ×2 (07:40→19:47)
[2016-09-01] MEDS: CALAN SR PO SCH (09:51)
[2016-09-01] MEDS: MUCINEX ER PO SCH ×2 (09:52→21:16)
[2016-09-01] MEDS: XANAX PO PRN ×2 (09:52→21:22)
[2016-09-01] MEDS: LEVAQUIN PO SCH (09:52)
[2016-09-01] MEDS: celeXA PO SCH (09:53)
--- NOTE | 2016-09-01 12:20 | Progress Note ---
Assessment and Plan Assessment and plan: COPD exacerbation Acute on chronic hypercapnic respiratory failure SAMMY Sleep apnea Elevated troponin Spiculated left upper lobe mass suspicious for malignancy - COPD exacerbation management - Cardiology and pulmonary consult appreciated - Echo normal EF - Patient needs placement - Pulmonary consult appreciated - Patient needs workup for malignancy as an outpatient Disposition - Patient is on high flow oxygen, patient needs to be in LTACH or inpatient rehab. History Interval history: Patient was seen and evaluated this morning, patient's breathing is getting better. She is on CPAP at night. On high flow oxygen. Hospitalist Physical - Physical exam Narrative exam: In moderate respiratory distress. The patient appeared well nourished and normally developed. Vital signs as documented. Head exam is unremarkable. No scleral icterus . Neck is without jugular venous distension, thyromegaly, or carotid bruits. Lungs scattered wheezing. Cardiac exam reveals regular rate and Rhythm. First and second heart sounds normal. No murmurs, rubs or gallops. Abdominal exam reveals normal bowel sounds, no masses, no organomegaly and no aortic enlargement. Extremities are nonedematous and both femoral and pedal pulses are normal. 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 No focal weakness. - Constitutional Vitals: Temp Pulse Resp BP Pulse Ox 97.6 F 64 20 135/76 98 09/01/16 07:30 09/01/16 09:51 09/01/16 07:50 09/01/16 09:51 09/01/16 07:40 General appearance: Present: no acute distress, other (BiPAP in place; denies any shortness of breath) Results - Labs CBC & Chem 7: 08/31/16 05:44 08/31/16 05:44 Labs: Laboratory Last Values WBC 6.9 K/mm3 (4.5-11.0) 08/31/16 05:44 RBC 4.63 M/mm3 (3.65-5.03) 08/31/16 05:44 Hgb 12.2 gm/dl (10.1-14.3) 08/31/16 05:44 Hct 38.5 % (30.3-42.9) 08/31/16 05:44 MCV 83 fl (79-97) 08/31/16 05:44 MCH 26 pg (28-32) L 08/31/16 05:44 MCHC 32 % (30-34) 08/31/16 05:44 RDW 15.1 % (13.2-15.2) 08/31/16 05:44 Plt Count 222 K/mm3 (140-440) 08/31/16 05:44 Lymph % (Auto) 10.0 % (13.4-35.0) L 08/31/16 05:44 [place] % (Auto) 7.9 % (0.0-7.3) H 08/31/16 05:44 Eos % (Auto) 0.0 % (0.0-4.3) 08/31/16 05:44 Baso % (Auto) 0.1 % (0.0-1.8) 08/31/16 05:44 Lymph # 0.7 K/mm3 (1.2-5.4) L 08/31/16 05:44 [place] # 0.5 K/mm3 (0.0-0.8) 08/31/16 05:44 Eos # 0.0 K/mm3 (0.0-0.4) 08/31/16 05:44 Baso # 0.0 K/mm3 (0.0-0.1) 08/31/16 05:44 Add Manual Diff Complete 08/28/16 04:33 Total Counted 100 08/28/16 04:33 Seg Neutrophils % 82.0 % (40.0-70.0) H 08/31/16 05:44 Seg Neuts % (Manual) 87.0 % (40.0-70.0) H 08/28/16 04:33 Band Neutrophils % 10.0 % 08/28/16 04:33 Lymphocytes % (Manual) 2.0 % (13.4-35.0) L 08/28/16 04:33 Reactive Lymphs % (Man) 1.0 % 08/28/16 04:33 Monocytes % (Manual) 0 % (0.0-7.3) 08/28/16 04:33 Eosinophils % (Manual) 0 % (0.0-4.3) 08/28/16 04:33 Basophils % (Manual) 0 % (0.0-1.8) 08/28/16 04:33 Metamyelocytes % 0 % 08/28/16 04:33 Myelocytes % 0 % 08/28/16 04:33 Promyelocytes % 0 % 08/28/16 04:33 Blast Cells % 0 % 08/28/16 04:33 Nucleated RBC % Not Reportable 08/28/16 04:33 Seg Neutrophils # 5.6 K/mm3 (1.8-7.7) 08/31/16 05:44 Seg Neutrophils # Man 7.0 K/mm3 (1.8-7.7) 08/28/16 04:33 Band Neutrophils # 0.8 K/mm3 08/28/16 04:33 Lymphocytes # (Manual) 0.2 K/mm3 (1.2-5.4) L 08/28/16 04:33 Abs React Lymphs (Man) 0.1 K/mm3 08/28/16 04:33 Monocytes # (Manual) 0.0 K/mm3 (0.0-0.8) 08/28/16 04:33 Eosinophils # (Manual) 0.0 K/mm3 (0.0-0.4) 08/28/16 04:33 Basophils # (Manual) 0.0 K/mm3 (0.0-0.1) 08/28/16 04:33 Metamyelocytes # 0.0 K/mm3 08/28/16 04:33 Myelocytes # 0.0 K/mm3 08/28/16 04:33 Promyelocytes # 0.0 K/mm3 08/28/16 04:33 Blast Cells # 0.0 K/mm3 08/28/16 04:33 WBC Morphology Not Reportable 08/28/16 04:33 Hypersegmented Neuts Not Reportable 08/28/16 04:33 Hyposegmented Neuts Not Reportable 08/28/16 04:33 Hypogranular Neuts Not Reportable 08/28/16 04:33 Smudge Cells Not Reportable 08/28/16 04:33 Toxic Granulation Not Reportable 08/28/16 04:33 Toxic Vacuolation Not Reportable 08/28/16 04:33 Dohle Bodies Not Reportable 08/28/16 04:33 Pelger-Huet Anomaly Not Reportable 08/28/16 04:33 José Miguel Rods Not Reportable 08/28/16 04:33 Platelet Estimate Appears normal 08/28/16 04:33 Clumped Platelets Not Reportable 08/28/16 04:33 Plt Clumps, EDTA Not Reportable 08/28/16 04:33 Large Platelets Not Reportable 08/28/16 04:33 Giant Platelets Not Reportable 08/28/16 04:33 Platelet Satelliting Not Reportable 08/28/16 04:33 Plt Morphology Comment Not Reportable 08/28/16 04:33 RBC Morphology Not Reportable 08/28/16 04:33 Dimorphic RBCs Not Reportable 08/28/16 04:33 Polychromasia Few 08/28/16 04:33 Hypochromasia Not Reportable 08/28/16 04:33 Poikilocytosis Not Reportable 08/28/16 04:33 Anisocytosis 1+ 08/28/16 04:33 Microcytosis Not Reportable 08/28/16 04:33 Macrocytosis Not Reportable 08/28/16 04:33 Spherocytes Not Reportable 08/28/16 04:33 Pappenheimer Bodies Not Reportable 08/28/16 04:33 Sickle Cells Not Reportable 08/28/16 04:33 Target Cells Not Reportable 08/28/16 04:33 Tear Drop Cells Not Reportable 08/28/16 04:33 Ovalocytes Not Reportable 08/28/16 04:33 Helmet Cells Not Reportable 08/28/16 04:33 [place] Bodies Not Reportable 08/28/16 04:33 [place] Rings Not Reportable 08/28/16 04:33 [place] Cells Not Reportable 08/28/16 04:33 Bite Cells Not Reportable 08/28/16 04:33 Crenated Cell Not Reportable 08/28/16 04:33 Elliptocytes Not Reportable 08/28/16 04:33 Acanthocytes (Spur) Not Reportable 08/28/16 04:33 Rouleaux Not Reportable 08/28/16 04:33 Hemoglobin C Crystals Not Reportable 08/28/16 04:33 Schistocytes Not Reportable 08/28/16 04:33 Malaria parasites Not Reportable 08/28/16 04:33 [place] Bodies Not Reportable 08/28/16 04:33 Hem Pathologist Commnt No 08/28/16 04:33 PT 13.6 Sec. (12.2-14.9) 08/27/16 03:55 INR 1.05 (0.87-1.13) 08/27/16 03:55 APTT 29.3 Sec. (24.2-36.6) 08/27/16 03:55 POC ABG pH 7.301 (7.35-7.45) L 08/27/16 04:29 POC ABG pCO2 61.7 (35-45) H 08/27/16 04:29 POC ABG pO2 113 (80-105) H 08/27/16 04:29 POC ABG HCO3 30.5 08/27/16 04:29 POC ABG Total CO2 32 08/27/16 04:29 POC ABG O2 Sat 98 08/27/16 04:29 POC ABG Base Excess 4 08/27/16 04:29 FiO2 50 % 08/27/16 04:29 Sodium 145 mmol/L (137-145) 08/31/16 05:44 Potassium 4.6 mmol/L (3.6-5.0) 08/31/16 05:44 Chloride 98.9 mmol/L (98-107) 08/31/16 05:44 Carbon Dioxide 36 mmol/L (22-30) H 08/31/16 05:44 Anion Gap 15 mmol/L 08/31/16 05:44 BUN 23 mg/dL (7-17) H 08/31/16 05:44 Creatinine 0.5 mg/dL (0.7-1.2) L 08/31/16 05:44 Estimated GFR > 60 ml/min 08/31/16 05:44 BUN/Creatinine Ratio 46.00 % 08/31/16 05:44 Glucose 126 mg/dL (65-100) H 08/31/16 05:44 POC Glucose 188 (70-105) H 09/01/16 01:04 Hemoglobin A1c 6.2 % (4-6) H 08/27/16 03:55 Calcium 8.0 mg/dL (8.4-10.2) L 08/31/16 05:44 Magnesium 2.90 mg/dL (1.7-2.3) H 08/29/16 06:01 Total Bilirubin < 0.20 mg/dL (0.1-1.2) 08/28/16 04:33 AST 24 units/L (5-40) 08/28/16 04:33 ALT < 5 units/L (7-56) L 08/28/16 04:33 Alkaline Phosphatase 57 units/L (35-129) 08/28/16 04:33 Total Creatine Kinase 260 units/L (30-135) H 08/27/16 13:17 CK-MB (CK-2) 5.7 ng/mL (0.0-4.0) H 08/27/16 13:17 CK-MB (CK-2) Rel Index 2.1 (0-4) 08/27/16 13:17 Troponin T 0.027 ng/mL (0.00-0.029) 08/27/16 13:17 NT-Pro-B Natriuret Pep 1037 pg/mL (0-900) H 08/27/16 03:55 Total Protein 6.9 g/dL (6.3-8.2) 08/28/16 04:33 Albumin 3.5 g/dL (3.9-5) L 08/28/16 04:33 Albumin/Globulin Ratio 1.0 % 08/28/16 04:33 Triglycerides 65 mg/dL (2-149) 08/27/16 03:55 Cholesterol 122 mg/dL (50-199) 08/27/16 03:55 LDL Cholesterol Direct 60 mg/dL (50-130) 08/27/16 03:55 HDL Cholesterol 49 mg/dL (40-59) 08/27/16 03:55 Cholesterol/HDL Ratio 2.48 % 08/27/16 03:55 TSH 0.244 mlU/mL (0.270-4.200) L 08/27/16 03:55 Free T4 1.28 ng/dL (0.76-1.46) 08/27/16 03:55 Urine Color Yellow (Yellow) 08/27/16 06:41 Urine Turbidity Clear (Clear) 08/27/16 06:41 Urine pH 5.0 (5.0-7.0) 08/27/16 06:41 Ur Specific [place] 1.033 (1.003-1.030) H 08/27/16 06:41 Urine Protein 100 mg/dl mg/dL (Negative) 08/27/16 06:41 Urine Glucose (UA) Neg mg/dL (Negative) 08/27/16 06:41 Urine Ketones Neg mg/dL (Negative) 08/27/16 06:41 Urine Blood Neg (Negative) 08/27/16 06:41 Urine Nitrite Neg (Negative) 08/27/16 06:41 Urine Bilirubin Neg (Negative) 08/27/16 06:41 Urine Urobilinogen < 2.0 mg/dL (<2.0) 08/27/16 06:41 Ur Leukocyte Esterase Neg (Negative) 08/27/16 06:41 Urine WBC (Auto) 4.0 /HPF (0.0-6.0) 08/27/16 06:41 Urine RBC (Auto) 5.0 /HPF (0.0-6.0) 08/27/16 06:41 U Epithel Cells (Auto) 3.0 /HPF (0-13.0) 08/27/16 06:41 Granular Casts 3 /LPF 08/27/16 06:41 Urine Mucus Few /HPF 08/27/16 06:41
--- NOTE | 2016-09-01 15:02 | Progress Note ---
Assessment and Plan - Patient Problems (1) Sleep apnea Current Visit: Yes Status: Chronic Qualifiers: Sleep apnea type: S (2) Acute and chronic respiratory failure ([id number]) Onset Date: 12/17/13 Current Visit: No Status: Acute Qualifiers: Respiratory failure complication: R (3) Acute renal failure Current Visit: No Status: Acute Qualifiers: Acute renal failure type: A Subjective Principal diagnosis: A/C respiratory failure Interval history: on hf feels better Objective Vital Signs - 12hr 09/01/16 09/01/16 09/01/16 04:00 07:00 07:30 Temperature 97.8 F 97.6 F Pulse Rate 71 Pulse Rate [ Anterior Bilateral Throughout] Pulse Rate [ 78 Left Radial] Pulse Rate [ 74 Right Radial] Respiratory 20 20 Rate Respiratory Rate [Anterior Bilateral Throughout] Blood Pressure Blood Pressure 145/93 [Left Arm] Blood Pressure 160/104 [Right Radial Artery] O2 Sat by Pulse 97 98 Oximetry 09/01/16 09/01/16 09/01/16 07:40 07:50 09:51 Temperature Pulse Rate 64 Pulse Rate [ 72 79 Anterior Bilateral Throughout] Pulse Rate [ Left Radial] Pulse Rate [ Right Radial] Respiratory Rate Respiratory 20 20 Rate [Anterior Bilateral Throughout] Blood Pressure 135/76 Blood Pressure [Left Arm] Blood Pressure [Right Radial Artery] O2 Sat by Pulse 98 Oximetry 09/01/16 09/01/16 09/01/16 11:15 13:26 13:36 Temperature 98.0 F Pulse Rate Pulse Rate [ 88 82 Anterior Bilateral Throughout] Pulse Rate [ Left Radial] Pulse Rate [ 80 Right Radial] Respiratory 20 Rate Respiratory 20 250 H Rate [Anterior Bilateral Throughout] Blood Pressure Blood Pressure [Left Arm] Blood Pressure 133/82 [Right Radial Artery] O2 Sat by Pulse 97 97 Oximetry Constitutional: alert, other (awake) Eyes: non-icteric ENT: oropharynx moist Neck: supple Effort: mildly labored Ascultation: Bilateral: wheezes (better) Cardiovascular: regular rate and rhythm (no mrg) Gastrointestinal: normoactive bowel sounds, soft, non-tender, non-distended Integumentary: normal Extremities: no cyanosis, no edema, pink and warm Neurologic: normal mental status, non-focal exam Psychiatric: mood appropriate, affect normal CBC and BMP: 08/31/16 05:44 08/31/16 05:44 ABG, PT/INR, D-dimer: ABG POC ABG pH 7.301 (7.35-7.45) L 08/27/16 04:29 POC ABG pCO2 61.7 (35-45) H 08/27/16 04:29 POC ABG pO2 113 (80-105) H 08/27/16 04:29 POC ABG HCO3 30.5 08/27/16 04:29 POC ABG Total CO2 32 08/27/16 04:29 POC ABG O2 Sat 98 08/27/16 04:29 PT/INR, D-dimer PT 13.6 Sec. (12.2-14.9) 08/27/16 03:55 INR 1.05 (0.87-1.13) 08/27/16 03:55 Abnormal lab findings: Abnormal Labs 08/27/16 08/27/16 08/27/16 06:41 08:13 13:17 MCH RDW Lymph % (Auto) [place] % (Auto) Lymph # [place] # Seg Neutrophils % Seg Neuts % (Manual) Lymphocytes % (Manual) Lymphocytes # (Manual) Carbon Dioxide BUN Creatinine Glucose POC Glucose Calcium Magnesium ALT Total Creatine Kinase 261 H 260 H CK-MB (CK-2) 6.5 H 5.7 H Troponin T 0.067 H Albumin Ur Specific [place] 1.033 H 08/28/16 08/28/16 08/29/16 04:33 04:33 06:01 MCH 27 L 27 L RDW 15.7 H 15.9 H Lymph % (Auto) 10.5 L [place] % (Auto) Lymph # 0.9 L [place] # Seg Neutrophils % 84.6 H Seg Neuts % (Manual) 87.0 H Lymphocytes % (Manual) 2.0 L Lymphocytes # (Manual) 0.2 L Carbon Dioxide 31 H BUN 24 H Creatinine Glucose 156 H POC Glucose Calcium Magnesium ALT < 5 L Total Creatine Kinase CK-MB (CK-2) Troponin T Albumin 3.5 L Ur Specific [place] 08/29/16 08/29/16 08/29/16 06:01 06:01 17:56 MCH RDW Lymph % (Auto) [place] % (Auto) Lymph # [place] # Seg Neutrophils % Seg Neuts % (Manual) Lymphocytes % (Manual) Lymphocytes # (Manual) Carbon Dioxide 35 H BUN 34 H Creatinine Glucose 102 H POC Glucose 210 H Calcium 8.3 L Magnesium 2.90 H ALT Total Creatine Kinase CK-MB (CK-2) Troponin T Albumin Ur Specific [place] 08/30/16 08/30/16 08/30/16 03:37 03:37 05:53 MCH 26 L RDW 15.8 H Lymph % (Auto) 11.8 L [place] % (Auto) 13.4 H Lymph # 1.0 L [place] # 1.2 H Seg Neutrophils % 74.7 H Seg Neuts % (Manual) Lymphocytes % (Manual) Lymphocytes # (Manual) Carbon Dioxide 36 H BUN 27 H Creatinine 0.6 L Glucose 123 H POC Glucose 129 H Calcium 8.3 L Magnesium ALT Total Creatine Kinase CK-MB (CK-2) Troponin T Albumin Ur Specific [place] 08/30/16 08/30/16 08/30/16 12:03 18:20 23:32 MCH RDW Lymph % (Auto) [place] % (Auto) Lymph # [place] # Seg Neutrophils % Seg Neuts % (Manual) Lymphocytes % (Manual) Lymphocytes # (Manual) Carbon Dioxide BUN Creatinine Glucose POC Glucose 141 H 161 H 182 H Calcium Magnesium ALT Total Creatine Kinase CK-MB (CK-2) Troponin T Albumin Ur Specific [place] 08/31/16 08/31/16 08/31/16 05:35 05:44 05:44 MCH 26 L RDW Lymph % (Auto) 10.0 L [place] % (Auto) 7.9 H Lymph # 0.7 L [place] # Seg Neutrophils % 82.0 H Seg Neuts % (Manual) Lymphocytes % (Manual) Lymphocytes # (Manual) Carbon Dioxide 36 H BUN 23 H Creatinine 0.5 L Glucose 126 H POC Glucose 122 H Calcium 8.0 L Magnesium ALT Total Creatine Kinase CK-MB (CK-2) Troponin T Albumin Ur Specific [place] 08/31/16 08/31/16 08/31/16 07:32 11:51 14:36 MCH RDW Lymph % (Auto) [place] % (Auto) Lymph # [place] # Seg Neutrophils % Seg Neuts % (Manual) Lymphocytes % (Manual) Lymphocytes # (Manual) Carbon Dioxide BUN Creatinine Glucose POC Glucose 126 H 113 H 137 H Calcium Magnesium ALT Total Creatine Kinase CK-MB (CK-2) Troponin T Albumin Ur Specific [place] 09/01/16 01:04 MCH RDW Lymph % (Auto) [place] % (Auto) Lymph # [place] # Seg Neutrophils % Seg Neuts % (Manual) Lymphocytes % (Manual) Lymphocytes # (Manual) Carbon Dioxide BUN Creatinine Glucose POC Glucose 188 H Calcium Magnesium ALT Total Creatine Kinase CK-MB (CK-2) Troponin T Albumin Ur Specific [place]
[2016-09-01] MEDS: SINGULAIR PO SCH (18:07)
[2016-09-01] MEDS: THEO-24 PO SCH (21:16)
[2016-09-01] MEDS: LOVENOX SUB-Q SCH (21:16)
[2016-09-02] MEDS: DUONEB 0.5 MG-3 MG/3 ML SOLN IH SCH ×4 (01:54→23:35)
[2016-09-02 06:34] LABS: Basophils % (Auto) 0.1 % (0.0-1.8); Hematocrit 40.7 % (30.3-42.9); Hemoglobin 12.7 gm/dl (10.1-14.3); Mean Corpuscular HGB Conc 31 % (30-34); Mean Corpuscular Hemoglobin 26 pg (28-32); Mean Corpuscular Volume 83 fl (79-97); Platelet Count 264 K/mm3 (140-440); Red Blood Count 4.88 M/mm3 (3.65-5.03); Red Cell Distribution Width 14.8 % (13.2-15.2); White Blood Count 5.9 K/mm3 (4.5-11.0)
[2016-09-02 06:45] LABS: Anion Gap 13 mmol/L; BUN/Creatinine Ratio 41.66; Blood Urea Nitrogen 25 mg/dL (7-17); Calcium 8.6 mg/dL (8.4-10.2); Carbon Dioxide 36 mmol/L (22-30); Chloride 98.1 mmol/L (98-107); Glucose 134 mg/dL (65-100); Potassium 4.4 mmol/L (3.6-5.0); Sodium 143 mmol/L (137-145)
[2016-09-02] MEDS: BROVANA NEBU IH SCH ×2 (07:10→20:00)
[2016-09-02] MEDS: PULMICORT IH SCH ×2 (07:10→20:00)
[2016-09-02] MEDS: DILAUDID IV PRN ×4 (08:10→17:10)
[2016-09-02] MEDS: LEVAQUIN PO SCH (10:03)
[2016-09-02] MEDS: CALAN SR PO SCH (10:03)
[2016-09-02] MEDS: MUCINEX ER PO SCH ×2 (10:03→21:36)
[2016-09-02] MEDS: celeXA PO SCH (10:03)
--- NOTE | 2016-09-02 12:24 | Progress Note ---
Assessment and Plan Assessment and plan: COPD exacerbation Acute on chronic hypercapnic respiratory failure SAMMY Sleep apnea Elevated troponin Spiculated left upper lobe mass suspicious for malignancy - COPD exacerbation management - Cardiology and pulmonary consult appreciated - Echo normal EF - Patient needs placement - Pulmonary consult appreciated - Patient needs workup for malignancy as an outpatient Disposition - Patient needs to be in LTACH or inpatient rehab. History Interval history: Patient was seen and evaluated this morning, patient's breathing is getting better. She is on CPAP at night. On [place] oxygen. Hospitalist Physical - Physical exam Narrative exam: In moderate respiratory distress. The patient appeared well nourished and normally developed. Vital signs as documented. Head exam is unremarkable. No scleral icterus . Neck is without jugular venous distension, thyromegaly, or carotid bruits. Lungs scattered wheezing. Cardiac exam reveals regular rate and Rhythm. First and second heart sounds normal. No murmurs, rubs or gallops. Abdominal exam reveals normal bowel sounds, no masses, no organomegaly and no aortic enlargement. Extremities are nonedematous and both femoral and pedal pulses are normal. [employer] FRAMER: Alert and oriented 3. No focal weakness. - Constitutional Vitals: Temp Pulse Resp BP Pulse Ox 97.4 F L 74 20 176/99 97 09/02/16 07:40 09/02/16 10:03 09/02/16 07:40 09/02/16 10:03 09/02/16 07:10 General appearance: Present: no acute distress, other (BiPAP in place; denies any shortness of breath) Results - Labs CBC & Chem 7: 09/02/16 05:33 09/02/16 05:33 Labs: Laboratory Last Values WBC 5.9 K/mm3 (4.5-11.0) 09/02/16 05:33 RBC 4.88 M/mm3 (3.65-5.03) 09/02/16 05:33 Hgb 12.7 gm/dl (10.1-14.3) 09/02/16 05:33 Hct 40.7 % (30.3-42.9) 09/02/16 05:33 MCV 83 fl (79-97) 09/02/16 05:33 MCH 26 pg (28-32) L 09/02/16 05:33 MCHC 31 % (30-34) 09/02/16 05:33 RDW 14.8 % (13.2-15.2) 09/02/16 05:33 Plt Count 264 K/mm3 (140-440) 09/02/16 05:33 Lymph % (Auto) 7.4 % (13.4-35.0) L 09/02/16 05:33 [place] % (Auto) 3.0 % (0.0-7.3) 09/02/16 05:33 Eos % (Auto) 0.0 % (0.0-4.3) 09/02/16 05:33 Baso % (Auto) 0.1 % (0.0-1.8) 09/02/16 05:33 Lymph # 0.4 K/mm3 (1.2-5.4) L 09/02/16 05:33 [place] # 0.2 K/mm3 (0.0-0.8) 09/02/16 05:33 Eos # 0.0 K/mm3 (0.0-0.4) 09/02/16 05:33 Baso # 0.0 K/mm3 (0.0-0.1) 09/02/16 05:33 Add Manual Diff Complete 08/28/16 04:33 Total Counted 100 08/28/16 04:33 Seg Neutrophils % 89.5 % (40.0-70.0) H 09/02/16 05:33 Seg Neuts % (Manual) 87.0 % (40.0-70.0) H 08/28/16 04:33 Band Neutrophils % 10.0 % 08/28/16 04:33 Lymphocytes % (Manual) 2.0 % (13.4-35.0) L 08/28/16 04:33 Reactive Lymphs % (Man) 1.0 % 08/28/16 04:33 Monocytes % (Manual) 0 % (0.0-7.3) 08/28/16 04:33 Eosinophils % (Manual) 0 % (0.0-4.3) 08/28/16 04:33 Basophils % (Manual) 0 % (0.0-1.8) 08/28/16 04:33 Metamyelocytes % 0 % 08/28/16 04:33 Myelocytes % 0 % 08/28/16 04:33 Promyelocytes % 0 % 08/28/16 04:33 Blast Cells % 0 % 08/28/16 04:33 Nucleated RBC % Not Reportable 08/28/16 04:33 Seg Neutrophils # 5.3 K/mm3 (1.8-7.7) 09/02/16 05:33 Seg Neutrophils # Man 7.0 K/mm3 (1.8-7.7) 08/28/16 04:33 Band Neutrophils # 0.8 K/mm3 08/28/16 04:33 Lymphocytes # (Manual) 0.2 K/mm3 (1.2-5.4) L 08/28/16 04:33 Abs React Lymphs (Man) 0.1 K/mm3 08/28/16 04:33 Monocytes # (Manual) 0.0 K/mm3 (0.0-0.8) 08/28/16 04:33 Eosinophils # (Manual) 0.0 K/mm3 (0.0-0.4) 08/28/16 04:33 Basophils # (Manual) 0.0 K/mm3 (0.0-0.1) 08/28/16 04:33 Metamyelocytes # 0.0 K/mm3 08/28/16 04:33 Myelocytes # 0.0 K/mm3 08/28/16 04:33 Promyelocytes # 0.0 K/mm3 08/28/16 04:33 Blast Cells # 0.0 K/mm3 08/28/16 04:33 WBC Morphology Not Reportable 08/28/16 04:33 Hypersegmented Neuts Not Reportable 08/28/16 04:33 Hyposegmented Neuts Not Reportable 08/28/16 04:33 Hypogranular Neuts Not Reportable 08/28/16 04:33 Smudge Cells Not Reportable 08/28/16 04:33 Toxic Granulation Not Reportable 08/28/16 04:33 Toxic Vacuolation Not Reportable 08/28/16 04:33 Dohle Bodies Not Reportable 08/28/16 04:33 Pelger-[place]uet Anomaly Not Reportable 08/28/16 04:33 José Miguel Rods Not Reportable 08/28/16 04:33 Platelet Estimate Appears normal 08/28/16 04:33 Clumped Platelets Not Reportable 08/28/16 04:33 Plt Clumps, EDTA Not Reportable 08/28/16 04:33 Large Platelets Not Reportable 08/28/16 04:33 Giant Platelets Not Reportable 08/28/16 04:33 Platelet Satelliting Not Reportable 08/28/16 04:33 Plt Morphology Comment Not Reportable 08/28/16 04:33 RBC Morphology Not Reportable 08/28/16 04:33 Dimorphic RBCs Not Reportable 08/28/16 04:33 Polychromasia Few 08/28/16 04:33 Hypochromasia Not Reportable 08/28/16 04:33 Poikilocytosis Not Reportable 08/28/16 04:33 Anisocytosis 1+ 08/28/16 04:33 Microcytosis Not Reportable 08/28/16 04:33 Macrocytosis Not Reportable 08/28/16 04:33 Spherocytes Not Reportable 08/28/16 04:33 Pappenheimer Bodies Not Reportable 08/28/16 04:33 Sickle Cells Not Reportable 08/28/16 04:33 Target Cells Not Reportable 08/28/16 04:33 Tear Drop Cells Not Reportable 08/28/16 04:33 Ovalocytes Not Reportable 08/28/16 04:33 Helmet Cells Not Reportable 08/28/16 04:33 [place] Bodies Not Reportable 08/28/16 04:33 [place] Rings Not Reportable 08/28/16 04:33 [place] Cells Not Reportable 08/28/16 04:33 Bite Cells Not Reportable 08/28/16 04:33 Crenated Cell Not Reportable 08/28/16 04:33 Elliptocytes Not Reportable 08/28/16 04:33 Acanthocytes (Spur) Not Reportable 08/28/16 04:33 Rouleaux Not Reportable 08/28/16 04:33 Hemoglobin C Crystals Not Reportable 08/28/16 04:33 Schistocytes Not Reportable 08/28/16 04:33 Malaria parasites Not Reportable 08/28/16 04:33 [place] Bodies Not Reportable 08/28/16 04:33 Hem Pathologist Commnt No 08/28/16 04:33 PT 13.6 Sec. (12.2-14.9) 08/27/16 03:55 INR 1.05 (0.87-1.13) 08/27/16 03:55 APTT 29.3 Sec. (24.2-36.6) 08/27/16 03:55 POC ABG pH 7.301 (7.35-7.45) L 08/27/16 04:29 POC ABG pCO2 61.7 (35-45) H 08/27/16 04:29 POC ABG pO2 113 (80-105) H 08/27/16 04:29 POC ABG HCO3 30.5 08/27/16 04:29 POC ABG Total CO2 32 08/27/16 04:29 POC ABG O2 Sat 98 08/27/16 04:29 POC ABG Base Excess 4 08/27/16 04:29 FiO2 50 % 08/27/16 04:29 Sodium 143 mmol/L (137-145) 09/02/16 05:33 Potassium 4.4 mmol/L (3.6-5.0) 09/02/16 05:33 Chloride 98.1 mmol/L (98-107) 09/02/16 05:33 Carbon Dioxide 36 mmol/L (22-30) H 09/02/16 05:33 Anion Gap 13 mmol/L 09/02/16 05:33 BUN 25 mg/dL (7-17) H 09/02/16 05:33 Creatinine 0.6 mg/dL (0.7-1.2) L 09/02/16 05:33 Estimated GFR > 60 ml/min 09/02/16 05:33 BUN/Creatinine Ratio 41.66 % 09/02/16 05:33 Glucose 134 mg/dL (65-100) H 09/02/16 05:33 POC Glucose 95 (70-105) 09/02/16 06:26 Hemoglobin A1c 6.2 % (4-6) H 08/27/16 03:55 Calcium 8.6 mg/dL (8.4-10.2) 09/02/16 05:33 Magnesium 2.90 mg/dL (1.7-2.3) H 08/29/16 06:01 Total Bilirubin < 0.20 mg/dL (0.1-1.2) 08/28/16 04:33 AST 24 units/L (5-40) 08/28/16 04:33 ALT < 5 units/L (7-56) L 08/28/16 04:33 Alkaline Phosphatase 57 units/L (35-129) 08/28/16 04:33 Total Creatine Kinase 260 units/L (30-135) H 08/27/16 13:17 CK-MB (CK-2) 5.7 ng/mL (0.0-4.0) H 08/27/16 13:17 CK-MB (CK-2) Rel Index 2.1 (0-4) 08/27/16 13:17 Troponin T 0.027 ng/mL (0.00-0.029) 08/27/16 13:17 NT-Pro-B Natriuret Pep 1037 pg/mL (0-900) H 08/27/16 03:55 Total Protein 6.9 g/dL (6.3-8.2) 08/28/16 04:33 Albumin 3.5 g/dL (3.9-5) L 08/28/16 04:33 Albumin/Globulin Ratio 1.0 % 08/28/16 04:33 Triglycerides 65 mg/dL (2-149) 08/27/16 03:55 Cholesterol 122 mg/dL (50-199) 08/27/16 03:55 LDL Cholesterol Direct 60 mg/dL (50-130) 08/27/16 03:55 HDL Cholesterol 49 mg/dL (40-59) 08/27/16 03:55 Cholesterol/HDL Ratio 2.48 % 08/27/16 03:55 TSH 0.244 mlU/mL (0.270-4.200) L 08/27/16 03:55 Free T4 1.28 ng/dL (0.76-1.46) 08/27/16 03:55 Urine Color Yellow (Yellow) 08/27/16 06:41 Urine Turbidity Clear (Clear) 08/27/16 06:41 Urine pH 5.0 (5.0-7.0) 08/27/16 06:41 Ur Specific Kelly 1.033 (1.003-1.030) H 08/27/16 06:41 Urine Protein 100 mg/dl mg/dL (Negative) 08/27/16 06:41 Urine Glucose (UA) Neg mg/dL (Negative) 08/27/16 06:41 Urine Ketones Neg mg/dL (Negative) 08/27/16 06:41 Urine Blood Neg (Negative) 08/27/16 06:41 Urine Nitrite Neg (Negative) 08/27/16 06:41 Urine Bilirubin Neg (Negative) 08/27/16 06:41 Urine Urobilinogen < 2.0 mg/dL (<2.0) 08/27/16 06:41 Ur Leukocyte Esterase Neg (Negative) 08/27/16 06:41 Urine WBC (Auto) 4.0 /HPF (0.0-6.0) 08/27/16 06:41 Urine RBC (Auto) 5.0 /HPF (0.0-6.0) 08/27/16 06:41 U Epithel Cells (Auto) 3.0 /HPF (0-13.0) 08/27/16 06:41 Granular Casts 3 /LPF 08/27/16 06:41 Urine Mucus Few /HPF 08/27/16 06:41
[2016-09-02] MEDS ORDERED: APRESOLINE IV PRN (12:25)
--- NOTE | 2016-09-02 14:03 | Progress Note ---
Assessment and Plan - Patient Problems (1) Sleep apnea Current Visit: Yes Status: Chronic Qualifiers: Sleep apnea type: S (2) Acute and chronic respiratory failure ([id number]) Onset Date: 12/17/13 Current Visit: No Status: Acute Qualifiers: Respiratory failure complication: R (3) Acute renal failure Current Visit: No Status: Acute Qualifiers: Acute renal failure type: A Subjective Principal diagnosis: A/C respiratory failure Interval history: sitting up in bed feels better Objective Vital Signs - 12hr 09/02/16 09/02/16 09/02/16 02:06 05:12 07:00 Temperature 98.8 F Pulse Rate 77 Pulse Rate [ 76 Anterior Bilateral Throughout] Pulse Rate [ 81 Right Radial] Respiratory 20 Rate Respiratory 20 Rate [Anterior Bilateral Throughout] Blood Pressure Blood Pressure 168/112 [Right Radial Artery] O2 Sat by Pulse 97 Oximetry 09/02/16 09/02/16 09/02/16 07:10 07:40 10:03 Temperature 97.4 F L Pulse Rate 71 74 Pulse Rate [ Anterior Bilateral Throughout] Pulse Rate [ 74 Right Radial] Respiratory 16 20 Rate Respiratory Rate [Anterior Bilateral Throughout] Blood Pressure 176/99 Blood Pressure 176/99 [Right Radial Artery] O2 Sat by Pulse 97 Oximetry Constitutional: alert, other (awake on hf 20lpm 30%) Eyes: non-icteric ENT: oropharynx moist Neck: supple Effort: mildly labored Ascultation: Bilateral: wheezes (better) Cardiovascular: regular rate and rhythm (no mrg) Gastrointestinal: normoactive bowel sounds, soft, non-tender, non-distended Integumentary: normal Extremities: no cyanosis, no edema, pink and warm Neurologic: normal mental status, non-focal exam Psychiatric: mood appropriate, affect normal CBC and BMP: 09/02/16 05:33 09/02/16 05:33 ABG, PT/INR, D-dimer: ABG POC ABG pH 7.301 (7.35-7.45) L 08/27/16 04:29 POC ABG pCO2 61.7 (35-45) H 08/27/16 04:29 POC ABG pO2 113 (80-105) H 08/27/16 04:29 POC ABG HCO3 30.5 08/27/16 04:29 POC ABG Total CO2 32 08/27/16 04:29 POC ABG O2 Sat 98 08/27/16 04:29 PT/INR, D-dimer PT 13.6 Sec. (12.2-14.9) 08/27/16 03:55 INR 1.05 (0.87-1.13) 08/27/16 03:55 Abnormal lab findings: Abnormal Labs 08/27/16 08/27/16 08/27/16 06:41 08:13 13:17 MCH RDW Lymph % (Auto) [place] % (Auto) Lymph # [place] # Seg Neutrophils % Seg Neuts % (Manual) Lymphocytes % (Manual) Lymphocytes # (Manual) Carbon Dioxide BUN Creatinine Glucose POC Glucose Calcium Magnesium ALT Total Creatine Kinase 261 H 260 H CK-MB (CK-2) 6.5 H 5.7 H Troponin T 0.067 H Albumin Ur Specific [place] 1.033 H 08/28/16 08/28/16 08/29/16 04:33 04:33 06:01 MCH 27 L 27 L RDW 15.7 H 15.9 H Lymph % (Auto) 10.5 L [place] % (Auto) Lymph # 0.9 L [place] # Seg Neutrophils % 84.6 H Seg Neuts % (Manual) 87.0 H Lymphocytes % (Manual) 2.0 L Lymphocytes # (Manual) 0.2 L Carbon Dioxide 31 H BUN 24 H Creatinine Glucose 156 H POC Glucose Calcium Magnesium ALT < 5 L Total Creatine Kinase CK-MB (CK-2) Troponin T Albumin 3.5 L Ur Specific [place] 08/29/16 08/29/16 08/29/16 06:01 06:01 17:56 MCH RDW Lymph % (Auto) [place] % (Auto) Lymph # [place] # Seg Neutrophils % Seg Neuts % (Manual) Lymphocytes % (Manual) Lymphocytes # (Manual) Carbon Dioxide 35 H BUN 34 H Creatinine Glucose 102 H POC Glucose 210 H Calcium 8.3 L Magnesium 2.90 H ALT Total Creatine Kinase CK-MB (CK-2) Troponin T Albumin Ur Specific [place] 08/30/16 08/30/16 08/30/16 03:37 03:37 05:53 MCH 26 L RDW 15.8 H Lymph % (Auto) 11.8 L [place] % (Auto) 13.4 H Lymph # 1.0 L [place] # 1.2 H Seg Neutrophils % 74.7 H Seg Neuts % (Manual) Lymphocytes % (Manual) Lymphocytes # (Manual) Carbon Dioxide 36 H BUN 27 H Creatinine 0.6 L Glucose 123 H POC Glucose 129 H Calcium 8.3 L Magnesium ALT Total Creatine Kinase CK-MB (CK-2) Troponin T Albumin Ur Specific [place] 08/30/16 08/30/16 08/30/16 12:03 18:20 23:32 MCH RDW Lymph % (Auto) [place] % (Auto) Lymph # [place] # Seg Neutrophils % Seg Neuts % (Manual) Lymphocytes % (Manual) Lymphocytes # (Manual) Carbon Dioxide BUN Creatinine Glucose POC Glucose 141 H 161 H 182 H Calcium Magnesium ALT Total Creatine Kinase CK-MB (CK-2) Troponin T Albumin Ur Specific [place] 08/31/16 08/31/16 08/31/16 05:35 05:44 05:44 MCH 26 L RDW Lymph % (Auto) 10.0 L [place] % (Auto) 7.9 H Lymph # 0.7 L [place] # Seg Neutrophils % 82.0 H Seg Neuts % (Manual) Lymphocytes % (Manual) Lymphocytes # (Manual) Carbon Dioxide 36 H BUN 23 H Creatinine 0.5 L Glucose 126 H POC Glucose 122 H Calcium 8.0 L Magnesium ALT Total Creatine Kinase CK-MB (CK-2) Troponin T Albumin Ur Specific [place] 08/31/16 08/31/16 08/31/16 07:32 11:51 14:36 MCH RDW Lymph % (Auto) [place] % (Auto) Lymph # [place] # Seg Neutrophils % Seg Neuts % (Manual) Lymphocytes % (Manual) Lymphocytes # (Manual) Carbon Dioxide BUN Creatinine Glucose POC Glucose 126 H 113 H 137 H Calcium Magnesium ALT Total Creatine Kinase CK-MB (CK-2) Troponin T Albumin Ur Specific [place] 09/01/16 09/01/16 09/01/16 01:04 05:07 11:22 MCH RDW Lymph % (Auto) [place] % (Auto) Lymph # [place] # Seg Neutrophils % Seg Neuts % (Manual) Lymphocytes % (Manual) Lymphocytes # (Manual) Carbon Dioxide BUN Creatinine Glucose POC Glucose 188 H 137 H 209 H Calcium Magnesium ALT Total Creatine Kinase CK-MB (CK-2) Troponin T Albumin Ur Specific [place] 09/01/16 09/02/16 09/02/16 18:39 00:27 05:33 MCH 26 L RDW Lymph % (Auto) 7.4 L [place] % (Auto) Lymph # 0.4 L [place] # Seg Neutrophils % 89.5 H Seg Neuts % (Manual) Lymphocytes % (Manual) Lymphocytes # (Manual) Carbon Dioxide BUN Creatinine Glucose POC Glucose 240 H 251 H Calcium Magnesium ALT Total Creatine Kinase CK-MB (CK-2) Troponin T Albumin Ur Specific [place] 09/02/16 09/02/16 05:33 11:52 MCH RDW Lymph % (Auto) [place] % (Auto) Lymph # [place] # Seg Neutrophils % Seg Neuts % (Manual) Lymphocytes % (Manual) Lymphocytes # (Manual) Carbon Dioxide 36 H BUN 25 H Creatinine 0.6 L Glucose 134 H POC Glucose 196 H Calcium Magnesium ALT Total Creatine Kinase CK-MB (CK-2) Troponin T Albumin Ur Specific [place]
[2016-09-02] MEDS: XANAX PO PRN ×2 (17:45→21:36)
[2016-09-02] MEDS: SINGULAIR PO SCH (17:46)
[2016-09-02] MEDS: LOVENOX SUB-Q SCH (21:35)
[2016-09-02] MEDS: AMBIEN PO PRN (21:36)
[2016-09-02] MEDS: THEO-24 PO SCH (21:37)
[2016-09-03] MEDS: DUONEB 0.5 MG-3 MG/3 ML SOLN IH SCH ×4 (01:42→20:35)
[2016-09-03] MEDS: PULMICORT IH SCH ×2 (07:32→20:35)
[2016-09-03] MEDS: BROVANA NEBU IH SCH ×2 (07:32→20:35)
--- NOTE | 2016-09-03 08:12 | XRay Report ---
AP CHEST :09/02/16 CLINICAL: Difficulty breathing. COMPARISON:08/27/16 FINDINGS: Normal heart and pulmonary vasculature. The lungs are mildly hyperexpanded. Bibasal streaky opacities. Right upper lobe subsegmental atelectasis versus scar. No airspace disease or pleural effusion. Erosive changes in the superior aspect of the left humeral head. The soft tissues are normal. IMPRESSION: Bilateral subsegmental atelectasis versus scar. Mild COPD. Erosive changes in the left humeral head suggests either AVN or erosive arthritis.
[2016-09-03] MEDS: LEVAQUIN PO SCH (10:48)
[2016-09-03] MEDS: MUCINEX ER PO SCH ×2 (10:48→22:14)
[2016-09-03] MEDS: celeXA PO SCH (10:48)
[2016-09-03] MEDS: CALAN SR PO SCH (10:48)
--- NOTE | 2016-09-03 11:21 | Progress Note ---
Assessment and Plan COPD exacerbation. Slowly improving Severe advanced centrilobular/bullous emphysema Acute bronchitis A/C respiratory failure, hypoxia and hypercapnea RML atelectasis, probably mucous plugging EFRAÍN pulm nodule. Suspicious for malignancy, needs further workup Rec: Continue oxygen weaning down to nasal cannula. She was using nasal cannula 3 L prior to admission Physical therapy Continue nebulizer therapy. I will switch her to an oral prior to discharge for combination therapy with an LABA/LAMA treatment As noted previously, the patient is not a candidate for bronch or CT guided biopsy due to COPD exacerbation/hypoxia; recommend outpatient PET. If her level of functioning impairment continues, she might not be able to tolerate bronchoscopy even when stabilized as an outpatient and serial follow-up might be the best approach. This will be determined later depending on patient's status Discussed with patient in detail. All questions answered. Subjective Date of service: 09/03/16 Principal diagnosis: A/C respiratory failure. COPD with exacerbation, pulmonary nodule suspicio Interval history: Her breathing is slightly better this morning. No active expectoration. No chest pain Objective Vital Signs - 12hr 09/02/16 09/03/16 09/03/16 23:36 00:00 00:44 Temperature 98.5 F Pulse Rate 74 83 Pulse Rate [ Anterior Bilateral Throughout] Pulse Rate [ 83 Right Radial] Respiratory 19 22 Rate Respiratory Rate [Anterior Bilateral Throughout] Blood Pressure 141/78 [Right Radial Artery] O2 Sat by Pulse 96 95 Oximetry 09/03/16 09/03/16 09/03/16 01:40 01:52 04:00 Temperature 99.5 F Pulse Rate Pulse Rate [ 87 84 Anterior Bilateral Throughout] Pulse Rate [ 100 H Right Radial] Respiratory 24 Rate Respiratory 21 21 Rate [Anterior Bilateral Throughout] Blood Pressure 131/93 [Right Radial Artery] O2 Sat by Pulse 97 Oximetry 09/03/16 09/03/16 09/03/16 07:33 07:50 08:15 Temperature 97.7 F Pulse Rate Pulse Rate [ 90 86 Anterior Bilateral Throughout] Pulse Rate [ 78 Right Radial] Respiratory 22 Rate Respiratory 20 20 Rate [Anterior Bilateral Throughout] Blood Pressure 142/77 [Right Radial Artery] O2 Sat by Pulse 97 Oximetry 09/03/16 08:28 Temperature Pulse Rate Pulse Rate [ Anterior Bilateral Throughout] Pulse Rate [ Right Radial] Respiratory Rate Respiratory Rate [Anterior Bilateral Throughout] Blood Pressure [Right Radial Artery] O2 Sat by Pulse 94 Oximetry Constitutional: alert, other (on hf 20lpm 30%) Eyes: non-icteric ENT: oropharynx moist Neck: supple Effort: mildly labored Ascultation: Bilateral: diminished breath sounds, wheezes (faint wheezing some crackling changes) Cardiovascular: regular rate and rhythm (no mrg) Gastrointestinal: normoactive bowel sounds, soft, non-tender, non-distended Integumentary: normal Extremities: no cyanosis, no edema, pink and warm Neurologic: normal mental status, non-focal exam Psychiatric: mood appropriate, affect normal CBC and BMP: 09/02/16 05:33 09/02/16 05:33 ABG, PT/INR, D-dimer: ABG POC ABG pH 7.301 (7.35-7.45) L 08/27/16 04:29 POC ABG pCO2 61.7 (35-45) H 08/27/16 04:29 POC ABG pO2 113 (80-105) H 08/27/16 04:29 POC ABG HCO3 30.5 08/27/16 04:29 POC ABG Total CO2 32 08/27/16 04:29 POC ABG O2 Sat 98 08/27/16 04:29 PT/INR, D-dimer PT 13.6 Sec. (12.2-14.9) 08/27/16 03:55 INR 1.05 (0.87-1.13) 08/27/16 03:55 Abnormal lab findings: Abnormal Labs 08/27/16 08/27/16 08/27/16 06:41 08:13 13:17 MCH RDW Lymph % (Auto) [place] % (Auto) Lymph # [place] # Seg Neutrophils % Seg Neuts % (Manual) Lymphocytes % (Manual) Lymphocytes # (Manual) Carbon Dioxide BUN Creatinine Glucose POC Glucose Calcium Magnesium ALT Total Creatine Kinase 261 H 260 H CK-MB (CK-2) 6.5 H 5.7 H Troponin T 0.067 H Albumin Ur Specific [place] 1.033 H 08/28/16 08/28/16 08/29/16 04:33 04:33 06:01 MCH 27 L 27 L RDW 15.7 H 15.9 H Lymph % (Auto) 10.5 L [place] % (Auto) Lymph # 0.9 L [place] # Seg Neutrophils % 84.6 H Seg Neuts % (Manual) 87.0 H Lymphocytes % (Manual) 2.0 L Lymphocytes # (Manual) 0.2 L Carbon Dioxide 31 H BUN 24 H Creatinine Glucose 156 H POC Glucose Calcium Magnesium ALT < 5 L Total Creatine Kinase CK-MB (CK-2) Troponin T Albumin 3.5 L Ur Specific [place] 08/29/16 08/29/16 08/29/16 06:01 06:01 17:56 MCH RDW Lymph % (Auto) [place] % (Auto) Lymph # [place] # Seg Neutrophils % Seg Neuts % (Manual) Lymphocytes % (Manual) Lymphocytes # (Manual) Carbon Dioxide 35 H BUN 34 H Creatinine Glucose 102 H POC Glucose 210 H Calcium 8.3 L Magnesium 2.90 H ALT Total Creatine Kinase CK-MB (CK-2) Troponin T Albumin Ur Specific [place] 08/30/16 08/30/16 08/30/16 03:37 03:37 05:53 MCH 26 L RDW 15.8 H Lymph % (Auto) 11.8 L [place] % (Auto) 13.4 H Lymph # 1.0 L [place] # 1.2 H Seg Neutrophils % 74.7 H Seg Neuts % (Manual) Lymphocytes % (Manual) Lymphocytes # (Manual) Carbon Dioxide 36 H BUN 27 H Creatinine 0.6 L Glucose 123 H POC Glucose 129 H Calcium 8.3 L Magnesium ALT Total Creatine Kinase CK-MB (CK-2) Troponin T Albumin Ur Specific [place] 08/30/16 08/30/16 08/30/16 12:03 18:20 23:32 MCH RDW Lymph % (Auto) [place] % (Auto) Lymph # [place] # Seg Neutrophils % Seg Neuts % (Manual) Lymphocytes % (Manual) Lymphocytes # (Manual) Carbon Dioxide BUN Creatinine Glucose POC Glucose 141 H 161 H 182 H Calcium Magnesium ALT Total Creatine Kinase CK-MB (CK-2) Troponin T Albumin Ur Specific [place] 08/31/16 08/31/16 08/31/16 05:35 05:44 05:44 MCH 26 L RDW Lymph % (Auto) 10.0 L [place] % (Auto) 7.9 H Lymph # 0.7 L [place] # Seg Neutrophils % 82.0 H Seg Neuts % (Manual) Lymphocytes % (Manual) Lymphocytes # (Manual) Carbon Dioxide 36 H BUN 23 H Creatinine 0.5 L Glucose 126 H POC Glucose 122 H Calcium 8.0 L Magnesium ALT Total Creatine Kinase CK-MB (CK-2) Troponin T Albumin Ur Specific [place] 08/31/16 08/31/16 08/31/16 07:32 11:51 14:36 MCH RDW Lymph % (Auto) [place] % (Auto) Lymph # [place] # Seg Neutrophils % Seg Neuts % (Manual) Lymphocytes % (Manual) Lymphocytes # (Manual) Carbon Dioxide BUN Creatinine Glucose POC Glucose 126 H 113 H 137 H Calcium Magnesium ALT Total Creatine Kinase CK-MB (CK-2) Troponin T Albumin Ur Specific [place] 09/01/16 09/01/16 09/01/16 01:04 05:07 11:22 MCH RDW Lymph % (Auto) [place] % (Auto) Lymph # [place] # Seg Neutrophils % Seg Neuts % (Manual) Lymphocytes % (Manual) Lymphocytes # (Manual) Carbon Dioxide BUN Creatinine Glucose POC Glucose 188 H 137 H 209 H Calcium Magnesium ALT Total Creatine Kinase CK-MB (CK-2) Troponin T Albumin Ur Specific [place] 09/01/16 09/02/16 09/02/16 18:39 00:27 05:33 MCH 26 L RDW Lymph % (Auto) 7.4 L [place] % (Auto) Lymph # 0.4 L [place] # Seg Neutrophils % 89.5 H Seg Neuts % (Manual) Lymphocytes % (Manual) Lymphocytes # (Manual) Carbon Dioxide BUN Creatinine Glucose POC Glucose 240 H 251 H Calcium Magnesium ALT Total Creatine Kinase CK-MB (CK-2) Troponin T Albumin Ur Specific [place] 09/02/16 09/02/16 09/02/16 05:33 11:52 18:29 MCH RDW Lymph % (Auto) [place] % (Auto) Lymph # [place] # Seg Neutrophils % Seg Neuts % (Manual) Lymphocytes % (Manual) Lymphocytes # (Manual) Carbon Dioxide 36 H BUN 25 H Creatinine 0.6 L Glucose 134 H POC Glucose 196 H 219 H Calcium Magnesium ALT Total Creatine Kinase CK-MB (CK-2) Troponin T Albumin Ur Specific [place] 09/03/16 09/03/16 00:07 05:47 MCH RDW Lymph % (Auto) [place] % (Auto) Lymph # [place] # Seg Neutrophils % Seg Neuts % (Manual) Lymphocytes % (Manual) Lymphocytes # (Manual) Carbon Dioxide BUN Creatinine Glucose POC Glucose 212 H 211 H Calcium Magnesium ALT Total Creatine Kinase CK-MB (CK-2) Troponin T Albumin Ur Specific [place] Chest x-ray: report reviewed
--- NOTE | 2016-09-03 13:02 | Progress Note ---
Assessment and Plan Assessment and plan: COPD exacerbation Acute on chronic hypercapnic respiratory failure SAMMY Sleep apnea Elevated troponin Spiculated left upper lobe mass suspicious for malignancy - COPD exacerbation management, improved but still on high flow oxygen. patient was on 3L of oxygen before admission - Echo normal EF - Patient needs placement to LTACH or inpatient rehab until she is able to switch from highflow oxygen to [place] oxygen - Pulmonary consult appreciated - Patient needs workup for malignancy as an outpatient, She can't tolerate procedures in her current condition. Disposition - Patient needs to be in LTACH or inpatient rehab. History Interval history: Patient was seen and evaluated this morning, patient's breathing is getting better. She is on CPAP at night. On highflow oxygen. Hospitalist Physical - Physical exam Narrative exam: In moderate respiratory distress. The patient appeared well nourished and normally developed. Vital signs as documented. Head exam is unremarkable. No scleral icterus . Neck is without jugular venous distension, thyromegaly, or carotid bruits. Lungs clear to auscultation. Cardiac exam reveals regular rate and Rhythm. First and second heart sounds normal. No murmurs, rubs or gallops. Abdominal exam reveals normal bowel sounds, no masses, no organomegaly and no aortic enlargement. Extremities are nonedematous and both femoral and pedal pulses are normal. 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 No focal weakness. - Constitutional Vitals: Temp Pulse Resp BP Pulse Ox 97.9 F 83 22 149/89 94 09/03/16 11:19 09/03/16 11:19 09/03/16 11:19 09/03/16 11:19 09/03/16 08:28 General appearance: Present: no acute distress, other (BiPAP in place; denies any shortness of breath) Results - Labs CBC & Chem 7: 09/02/16 05:33 09/02/16 05:33 Labs: Laboratory Last Values WBC 5.9 K/mm3 (4.5-11.0) 09/02/16 05:33 RBC 4.88 M/mm3 (3.65-5.03) 09/02/16 05:33 Hgb 12.7 gm/dl (10.1-14.3) 09/02/16 05:33 Hct 40.7 % (30.3-42.9) 09/02/16 05:33 MCV 83 fl (79-97) 09/02/16 05:33 MCH 26 pg (28-32) L 09/02/16 05:33 MCHC 31 % (30-34) 09/02/16 05:33 RDW 14.8 % (13.2-15.2) 09/02/16 05:33 Plt Count 264 K/mm3 (140-440) 09/02/16 05:33 Lymph % (Auto) 7.4 % (13.4-35.0) L 09/02/16 05:33 [place] % (Auto) 3.0 % (0.0-7.3) 09/02/16 05:33 Eos % (Auto) 0.0 % (0.0-4.3) 09/02/16 05:33 Baso % (Auto) 0.1 % (0.0-1.8) 09/02/16 05:33 Lymph # 0.4 K/mm3 (1.2-5.4) L 09/02/16 05:33 [place] # 0.2 K/mm3 (0.0-0.8) 09/02/16 05:33 Eos # 0.0 K/mm3 (0.0-0.4) 09/02/16 05:33 Baso # 0.0 K/mm3 (0.0-0.1) 09/02/16 05:33 Add Manual Diff Complete 08/28/16 04:33 Total Counted 100 08/28/16 04:33 Seg Neutrophils % 89.5 % (40.0-70.0) H 09/02/16 05:33 Seg Neuts % (Manual) 87.0 % (40.0-70.0) H 08/28/16 04:33 Band Neutrophils % 10.0 % 08/28/16 04:33 Lymphocytes % (Manual) 2.0 % (13.4-35.0) L 08/28/16 04:33 Reactive Lymphs % (Man) 1.0 % 08/28/16 04:33 Monocytes % (Manual) 0 % (0.0-7.3) 08/28/16 04:33 Eosinophils % (Manual) 0 % (0.0-4.3) 08/28/16 04:33 Basophils % (Manual) 0 % (0.0-1.8) 08/28/16 04:33 Metamyelocytes % 0 % 08/28/16 04:33 Myelocytes % 0 % 08/28/16 04:33 Promyelocytes % 0 % 08/28/16 04:33 Blast Cells % 0 % 08/28/16 04:33 Nucleated RBC % Not Reportable 08/28/16 04:33 Seg Neutrophils # 5.3 K/mm3 (1.8-7.7) 09/02/16 05:33 Seg Neutrophils # Man 7.0 K/mm3 (1.8-7.7) 08/28/16 04:33 Band Neutrophils # 0.8 K/mm3 08/28/16 04:33 Lymphocytes # (Manual) 0.2 K/mm3 (1.2-5.4) L 08/28/16 04:33 Abs React Lymphs (Man) 0.1 K/mm3 08/28/16 04:33 Monocytes # (Manual) 0.0 K/mm3 (0.0-0.8) 08/28/16 04:33 Eosinophils # (Manual) 0.0 K/mm3 (0.0-0.4) 08/28/16 04:33 Basophils # (Manual) 0.0 K/mm3 (0.0-0.1) 08/28/16 04:33 Metamyelocytes # 0.0 K/mm3 08/28/16 04:33 Myelocytes # 0.0 K/mm3 08/28/16 04:33 Promyelocytes # 0.0 K/mm3 08/28/16 04:33 Blast Cells # 0.0 K/mm3 08/28/16 04:33 WBC Morphology Not Reportable 08/28/16 04:33 Hypersegmented Neuts Not Reportable 08/28/16 04:33 Hyposegmented Neuts Not Reportable 08/28/16 04:33 Hypogranular Neuts Not Reportable 08/28/16 04:33 Smudge Cells Not Reportable 08/28/16 04:33 Toxic Granulation Not Reportable 08/28/16 04:33 Toxic Vacuolation Not Reportable 08/28/16 04:33 Dohle Bodies Not Reportable 08/28/16 04:33 Pelger-Huet Anomaly Not Reportable 08/28/16 04:33 José Miguel Rods Not Reportable 08/28/16 04:33 Platelet Estimate Appears normal 08/28/16 04:33 Clumped Platelets Not Reportable 08/28/16 04:33 Plt Clumps, EDTA Not Reportable 08/28/16 04:33 Large Platelets Not Reportable 08/28/16 04:33 Giant Platelets Not Reportable 08/28/16 04:33 Platelet Satelliting Not Reportable 08/28/16 04:33 Plt Morphology Comment Not Reportable 08/28/16 04:33 RBC Morphology Not Reportable 08/28/16 04:33 Dimorphic RBCs Not Reportable 08/28/16 04:33 Polychromasia Few 08/28/16 04:33 Hypochromasia Not Reportable 08/28/16 04:33 Poikilocytosis Not Reportable 08/28/16 04:33 Anisocytosis 1+ 08/28/16 04:33 Microcytosis Not Reportable 08/28/16 04:33 Macrocytosis Not Reportable 08/28/16 04:33 Spherocytes Not Reportable 08/28/16 04:33 Pappenheimer Bodies Not Reportable 08/28/16 04:33 Sickle Cells Not Reportable 08/28/16 04:33 Target Cells Not Reportable 08/28/16 04:33 Tear Drop Cells Not Reportable 08/28/16 04:33 Ovalocytes Not Reportable 08/28/16 04:33 Helmet Cells Not Reportable 08/28/16 04:33 Steward-Hurt Bodies Not Reportable 08/28/16 04:33 Duff Rings Not Reportable 08/28/16 04:33 [place] Cells Not Reportable 08/28/16 04:33 Bite Cells Not Reportable 08/28/16 04:33 Crenated Cell Not Reportable 08/28/16 04:33 Elliptocytes Not Reportable 08/28/16 04:33 Acanthocytes (Spur) Not Reportable 08/28/16 04:33 Rouleaux Not Reportable 08/28/16 04:33 Hemoglobin C Crystals Not Reportable 08/28/16 04:33 Schistocytes Not Reportable 08/28/16 04:33 Malaria parasites Not Reportable 08/28/16 04:33 Popeye Bodies Not Reportable 08/28/16 04:33 Hem Pathologist Commnt No 08/28/16 04:33 PT 13.6 Sec. (12.2-14.9) 08/27/16 03:55 INR 1.05 (0.87-1.13) 08/27/16 03:55 APTT 29.3 Sec. (24.2-36.6) 08/27/16 03:55 POC ABG pH 7.301 (7.35-7.45) L 08/27/16 04:29 POC ABG pCO2 61.7 (35-45) H 08/27/16 04:29 POC ABG pO2 113 (80-105) H 08/27/16 04:29 POC ABG HCO3 30.5 08/27/16 04:29 POC ABG Total CO2 32 08/27/16 04:29 POC ABG O2 Sat 98 08/27/16 04:29 POC ABG Base Excess 4 08/27/16 04:29 FiO2 50 % 08/27/16 04:29 Sodium 143 mmol/L (137-145) 09/02/16 05:33 Potassium 4.4 mmol/L (3.6-5.0) 09/02/16 05:33 Chloride 98.1 mmol/L (98-107) 09/02/16 05:33 Carbon Dioxide 36 mmol/L (22-30) H 09/02/16 05:33 Anion Gap 13 mmol/L 09/02/16 05:33 BUN 25 mg/dL (7-17) H 09/02/16 05:33 Creatinine 0.6 mg/dL (0.7-1.2) L 09/02/16 05:33 Estimated GFR > 60 ml/min 09/02/16 05:33 BUN/Creatinine Ratio 41.66 % 09/02/16 05:33 Glucose 134 mg/dL (65-100) H 09/02/16 05:33 POC Glucose 249 (70-105) H 09/03/16 11:17 Hemoglobin A1c 6.2 % (4-6) H 08/27/16 03:55 Calcium 8.6 mg/dL (8.4-10.2) 09/02/16 05:33 Magnesium 2.90 mg/dL (1.7-2.3) H 08/29/16 06:01 Total Bilirubin < 0.20 mg/dL (0.1-1.2) 08/28/16 04:33 AST 24 units/L (5-40) 08/28/16 04:33 ALT < 5 units/L (7-56) L 08/28/16 04:33 Alkaline Phosphatase 57 units/L (35-129) 08/28/16 04:33 Total Creatine Kinase 260 units/L (30-135) H 08/27/16 13:17 CK-MB (CK-2) 5.7 ng/mL (0.0-4.0) H 08/27/16 13:17 CK-MB (CK-2) Rel Index 2.1 (0-4) 08/27/16 13:17 Troponin T 0.027 ng/mL (0.00-0.029) 08/27/16 13:17 NT-Pro-B Natriuret Pep 1037 pg/mL (0-900) H 08/27/16 03:55 Total Protein 6.9 g/dL (6.3-8.2) 08/28/16 04:33 Albumin 3.5 g/dL (3.9-5) L 08/28/16 04:33 Albumin/Globulin Ratio 1.0 % 08/28/16 04:33 Triglycerides 65 mg/dL (2-149) 08/27/16 03:55 Cholesterol 122 mg/dL (50-199) 08/27/16 03:55 LDL Cholesterol Direct 60 mg/dL (50-130) 08/27/16 03:55 HDL Cholesterol 49 mg/dL (40-59) 08/27/16 03:55 Cholesterol/HDL Ratio 2.48 % 08/27/16 03:55 TSH 0.244 mlU/mL (0.270-4.200) L 08/27/16 03:55 Free T4 1.28 ng/dL (0.76-1.46) 08/27/16 03:55 Urine Color Yellow (Yellow) 08/27/16 06:41 Urine Turbidity Clear (Clear) 08/27/16 06:41 Urine pH 5.0 (5.0-7.0) 08/27/16 06:41 Ur Specific [place] 1.033 (1.003-1.030) H 08/27/16 06:41 Urine Protein 100 mg/dl mg/dL (Negative) 08/27/16 06:41 Urine Glucose (UA) Neg mg/dL (Negative) 08/27/16 06:41 Urine Ketones Neg mg/dL (Negative) 08/27/16 06:41 Urine Blood Neg (Negative) 08/27/16 06:41 Urine Nitrite Neg (Negative) 08/27/16 06:41 Urine Bilirubin Neg (Negative) 08/27/16 06:41 Urine Urobilinogen < 2.0 mg/dL (<2.0) 08/27/16 06:41 Ur Leukocyte Esterase Neg (Negative) 08/27/16 06:41 Urine WBC (Auto) 4.0 /HPF (0.0-6.0) 08/27/16 06:41 Urine RBC (Auto) 5.0 /HPF (0.0-6.0) 08/27/16 06:41 U Epithel Cells (Auto) 3.0 /HPF (0-13.0) 08/27/16 06:41 Granular Casts 3 /LPF 08/27/16 06:41 Urine Mucus Few /HPF 08/27/16 06:41
--- NOTE | 2016-09-03 15:03 | Event Note ---
Date: 09/03/16 [facility] F/U, COPD exacerbation. Pt seen in room on today; on HFNC. Pt unable to fully participate with PT due to being on HFNC, however, reports ambulating around room independently. Case discussed with CM; seeking LTAC placement due to difficulty weaning oxygen, which is most appropriate at this time. Will sign off; please call with any questions.
[2016-09-03] MEDS: XANAX PO PRN ×2 (18:29→22:15)
[2016-09-03] MEDS: AMBIEN PO PRN (22:15)
[2016-09-03] MEDS: LOVENOX SUB-Q SCH (22:15)
[2016-09-03] MEDS: THEO-24 PO SCH (22:16)
[2016-09-04] MEDS: DUONEB 0.5 MG-3 MG/3 ML SOLN IH SCH ×4 (03:28→20:47)
[2016-09-04] MEDS: BROVANA NEBU IH SCH ×2 (08:06→20:46)
[2016-09-04] MEDS: PULMICORT IH SCH ×2 (08:06→20:52)
[2016-09-04] MEDS: SINGULAIR PO SCH ×2 (10:15→17:51)
[2016-09-04] MEDS: MUCINEX ER PO SCH ×2 (10:16→21:56)
[2016-09-04] MEDS: celeXA PO SCH (10:16)
[2016-09-04] MEDS: LEVAQUIN PO SCH (10:17)
[2016-09-04] MEDS: CALAN SR PO SCH (10:17)
--- NOTE | 2016-09-04 13:12 | Progress Note ---
Assessment and Plan COPD exacerbation. Controlled. No active wheezing at this time Severe advanced centrilobular/bullous emphysema Acute bronchitis A/C respiratory failure, hypoxia and hypercapnea RML atelectasis, probably mucous plugging EFRANÍ pulm nodule. Suspicious for malignancy, needs further workup Rec: Wean oxygen down to nasal cannula as tolerated Physical therapy Continue nebulizer therapy. Switch her to combination therapy with an LABA/LAMA treatment As noted previously, the patient is not a candidate for bronch or CT guided biopsy due to COPD exacerbation/hypoxia; recommend outpatient PET. If her level of functioning impairment continues, she might not be able to tolerate bronchoscopy even when stabilized as an outpatient and serial follow-up might be the best approach. This will be determined later depending on patient's status Discussed with patient in detail. All questions answered. Subjective Date of service: 09/04/16 Principal diagnosis: A/C respiratory failure. COPD with exacerbation, pulmonary nodule suspicio Interval history: No respiratory complains. On HFO. No attempt for NC change yet per pt. No active expectoration. No chest pain Objective Vital Signs - 12hr 09/04/16 09/04/16 09/04/16 03:00 05:31 07:18 Temperature 97.2 F L 98.2 F Pulse Rate 97 H Pulse Rate [ Anterior Bilateral Throughout] Pulse Rate [ 98 H Apical] Pulse Rate [ Left Radial] Pulse Rate [ 85 Right Radial] Respiratory 19 22 Rate Respiratory Rate [Anterior Bilateral Throughout] Blood Pressure [Left Arm] Blood Pressure 160/89 147/114 [Right Radial Artery] O2 Sat by Pulse 95 93 Oximetry 09/04/16 09/04/16 09/04/16 08:06 08:16 12:09 Temperature 98.3 F Pulse Rate Pulse Rate [ 93 H 95 H Anterior Bilateral Throughout] Pulse Rate [ Apical] Pulse Rate [ 94 H Left Radial] Pulse Rate [ Right Radial] Respiratory 22 Rate Respiratory 18 18 Rate [Anterior Bilateral Throughout] Blood Pressure 137/91 [Left Arm] Blood Pressure [Right Radial Artery] O2 Sat by Pulse 98 95 Oximetry Constitutional: alert, other (on hf 20lpm 30%) Eyes: non-icteric ENT: oropharynx moist Neck: supple Effort: mildly labored Ascultation: Bilateral: clear, diminished breath sounds Cardiovascular: regular rate and rhythm (no mrg) Gastrointestinal: normoactive bowel sounds, soft, non-tender, non-distended Integumentary: normal Extremities: no cyanosis, no edema, pink and warm Neurologic: normal mental status, non-focal exam Psychiatric: mood appropriate, affect normal CBC and BMP: 09/02/16 05:33 09/02/16 05:33 ABG, PT/INR, D-dimer: ABG POC ABG pH 7.301 (7.35-7.45) L 08/27/16 04:29 POC ABG pCO2 61.7 (35-45) H 08/27/16 04:29 POC ABG pO2 113 (80-105) H 08/27/16 04:29 POC ABG HCO3 30.5 08/27/16 04:29 POC ABG Total CO2 32 08/27/16 04:29 POC ABG O2 Sat 98 08/27/16 04:29 PT/INR, D-dimer PT 13.6 Sec. (12.2-14.9) 08/27/16 03:55 INR 1.05 (0.87-1.13) 08/27/16 03:55 Abnormal lab findings: Abnormal Labs 08/27/16 08/27/16 08/27/16 06:41 08:13 13:17 MCH RDW Lymph % (Auto) [place] % (Auto) Lymph # [place] # Seg Neutrophils % Seg Neuts % (Manual) Lymphocytes % (Manual) Lymphocytes # (Manual) Carbon Dioxide BUN Creatinine Glucose POC Glucose Calcium Magnesium ALT Total Creatine Kinase 261 H 260 H CK-MB (CK-2) 6.5 H 5.7 H Troponin T 0.067 H Albumin Ur Specific [place] 1.033 H 08/28/16 08/28/16 08/29/16 04:33 04:33 06:01 MCH 27 L 27 L RDW 15.7 H 15.9 H Lymph % (Auto) 10.5 L [place] % (Auto) Lymph # 0.9 L [place] # Seg Neutrophils % 84.6 H Seg Neuts % (Manual) 87.0 H Lymphocytes % (Manual) 2.0 L Lymphocytes # (Manual) 0.2 L Carbon Dioxide 31 H BUN 24 H Creatinine Glucose 156 H POC Glucose Calcium Magnesium ALT < 5 L Total Creatine Kinase CK-MB (CK-2) Troponin T Albumin 3.5 L Ur Specific [place] 08/29/16 08/29/16 08/29/16 06:01 06:01 17:56 MCH RDW Lymph % (Auto) [place] % (Auto) Lymph # [place] # Seg Neutrophils % Seg Neuts % (Manual) Lymphocytes % (Manual) Lymphocytes # (Manual) Carbon Dioxide 35 H BUN 34 H Creatinine Glucose 102 H POC Glucose 210 H Calcium 8.3 L Magnesium 2.90 H ALT Total Creatine Kinase CK-MB (CK-2) Troponin T Albumin Ur Specific [place] 08/30/16 08/30/16 08/30/16 03:37 03:37 05:53 MCH 26 L RDW 15.8 H Lymph % (Auto) 11.8 L [place] % (Auto) 13.4 H Lymph # 1.0 L [place] # 1.2 H Seg Neutrophils % 74.7 H Seg Neuts % (Manual) Lymphocytes % (Manual) Lymphocytes # (Manual) Carbon Dioxide 36 H BUN 27 H Creatinine 0.6 L Glucose 123 H POC Glucose 129 H Calcium 8.3 L Magnesium ALT Total Creatine Kinase CK-MB (CK-2) Troponin T Albumin Ur Specific [place] 08/30/16 08/30/16 08/30/16 12:03 18:20 23:32 MCH RDW Lymph % (Auto) [place] % (Auto) Lymph # [place] # Seg Neutrophils % Seg Neuts % (Manual) Lymphocytes % (Manual) Lymphocytes # (Manual) Carbon Dioxide BUN Creatinine Glucose POC Glucose 141 H 161 H 182 H Calcium Magnesium ALT Total Creatine Kinase CK-MB (CK-2) Troponin T Albumin Ur Specific [place] 08/31/16 08/31/16 08/31/16 05:35 05:44 05:44 MCH 26 L RDW Lymph % (Auto) 10.0 L [place] % (Auto) 7.9 H Lymph # 0.7 L [place] # Seg Neutrophils % 82.0 H Seg Neuts % (Manual) Lymphocytes % (Manual) Lymphocytes # (Manual) Carbon Dioxide 36 H BUN 23 H Creatinine 0.5 L Glucose 126 H POC Glucose 122 H Calcium 8.0 L Magnesium ALT Total Creatine Kinase CK-MB (CK-2) Troponin T Albumin Ur Specific [place] 08/31/16 08/31/16 08/31/16 07:32 11:51 14:36 MCH RDW Lymph % (Auto) [place] % (Auto) Lymph # [place] # Seg Neutrophils % Seg Neuts % (Manual) Lymphocytes % (Manual) Lymphocytes # (Manual) Carbon Dioxide BUN Creatinine Glucose POC Glucose 126 H 113 H 137 H Calcium Magnesium ALT Total Creatine Kinase CK-MB (CK-2) Troponin T Albumin Ur Specific [place] 09/01/16 09/01/16 09/01/16 01:04 05:07 11:22 MCH RDW Lymph % (Auto) [place] % (Auto) Lymph # [place] # Seg Neutrophils % Seg Neuts % (Manual) Lymphocytes % (Manual) Lymphocytes # (Manual) Carbon Dioxide BUN Creatinine Glucose POC Glucose 188 H 137 H 209 H Calcium Magnesium ALT Total Creatine Kinase CK-MB (CK-2) Troponin T Albumin Ur Specific [place] 09/01/16 09/02/16 09/02/16 18:39 00:27 05:33 MCH 26 L RDW Lymph % (Auto) 7.4 L [place] % (Auto) Lymph # 0.4 L [place] # Seg Neutrophils % 89.5 H Seg Neuts % (Manual) Lymphocytes % (Manual) Lymphocytes # (Manual) Carbon Dioxide BUN Creatinine Glucose POC Glucose 240 H 251 H Calcium Magnesium ALT Total Creatine Kinase CK-MB (CK-2) Troponin T Albumin Ur Specific [place] 09/02/16 09/02/16 09/02/16 05:33 11:52 18:29 MCH RDW Lymph % (Auto) [place] % (Auto) Lymph # [place] # Seg Neutrophils % Seg Neuts % (Manual) Lymphocytes % (Manual) Lymphocytes # (Manual) Carbon Dioxide 36 H BUN 25 H Creatinine 0.6 L Glucose 134 H POC Glucose 196 H 219 H Calcium Magnesium ALT Total Creatine Kinase CK-MB (CK-2) Troponin T Albumin Ur Specific [place] 09/03/16 09/03/16 09/03/16 00:07 05:47 11:17 MCH RDW Lymph % (Auto) [place] % (Auto) Lymph # [place] # Seg Neutrophils % Seg Neuts % (Manual) Lymphocytes % (Manual) Lymphocytes # (Manual) Carbon Dioxide BUN Creatinine Glucose POC Glucose 212 H 211 H 249 H Calcium Magnesium ALT Total Creatine Kinase CK-MB (CK-2) Troponin T Albumin Ur Specific [place] 09/03/16 09/04/16 09/04/16 15:27 00:10 05:08 MCH RDW Lymph % (Auto) [place] % (Auto) Lymph # [place] # Seg Neutrophils % Seg Neuts % (Manual) Lymphocytes % (Manual) Lymphocytes # (Manual) Carbon Dioxide BUN Creatinine Glucose POC Glucose 169 H 259 H 129 H Calcium Magnesium ALT Total Creatine Kinase CK-MB (CK-2) Troponin T Albumin Ur Specific [place] 09/04/16 11:08 MCH RDW Lymph % (Auto) [place] % (Auto) Lymph # [place] # Seg Neutrophils % Seg Neuts % (Manual) Lymphocytes % (Manual) Lymphocytes # (Manual) Carbon Dioxide BUN Creatinine Glucose POC Glucose 237 H Calcium Magnesium ALT Total Creatine Kinase CK-MB (CK-2) Troponin T Albumin Ur Specific [place] Chest x-ray: report reviewed
--- NOTE | 2016-09-04 15:27 | Progress Note ---
Assessment and Plan Assessment and plan: Acute on chronic hypercapnic respiratory failure due to COPD exacerbation. COPD exacerbation. Solu Medrol iv, DuoNeb when necessary, Pulmicort. Needing high amounts of oxygen on high flow oxygen by nasal cannula. Saturation of 98% on 2 L/m high flow nasal cannula . Needs LTAC placement Obstructive sleep apnea. Pulm following Elevated troponin Spiculated left upper lobe mass suspicious for malignancy. For out patient follow-up Full code status. History Interval history: less shortness of breath, no chest pain Hospitalist Physical - Physical exam Narrative exam: Gen appearance: Not in acute distress,obese HEENT: Normocephalic, atraumatic Neck:supple, no JVD Lungs : Decreased breath sounds bilaterally, bilateral rhonchi, Heart :S1-S2 regular, no murmurs, rubs or gallop Abdomen: soft non-tender, non-distended,normal bowel sounds Extremities:no edema, no clubbing or cyanosis, Neuro: Awake alert oriented 3, no focal neurological signs - Constitutional Vitals: Temp Pulse Resp BP Pulse Ox 98.3 F 101 H 18 137/91 98 09/04/16 12:09 09/04/16 14:08 09/04/16 14:08 09/04/16 12:09 09/04/16 14:00 General appearance: Present: no acute distress, other (BiPAP in place; denies any shortness of breath) Results - Labs CBC & Chem 7: 09/02/16 05:33 09/02/16 05:33 Labs: Laboratory Last Values WBC 5.9 K/mm3 (4.5-11.0) 09/02/16 05:33 RBC 4.88 M/mm3 (3.65-5.03) 09/02/16 05:33 Hgb 12.7 gm/dl (10.1-14.3) 09/02/16 05:33 Hct 40.7 % (30.3-42.9) 09/02/16 05:33 MCV 83 fl (79-97) 09/02/16 05:33 MCH 26 pg (28-32) L 09/02/16 05:33 MCHC 31 % (30-34) 09/02/16 05:33 RDW 14.8 % (13.2-15.2) 09/02/16 05:33 Plt Count 264 K/mm3 (140-440) 09/02/16 05:33 Lymph % (Auto) 7.4 % (13.4-35.0) L 09/02/16 05:33 [place] % (Auto) 3.0 % (0.0-7.3) 09/02/16 05:33 Eos % (Auto) 0.0 % (0.0-4.3) 09/02/16 05:33 Baso % (Auto) 0.1 % (0.0-1.8) 09/02/16 05:33 Lymph # 0.4 K/mm3 (1.2-5.4) L 09/02/16 05:33 [place] # 0.2 K/mm3 (0.0-0.8) 09/02/16 05:33 Eos # 0.0 K/mm3 (0.0-0.4) 09/02/16 05:33 Baso # 0.0 K/mm3 (0.0-0.1) 09/02/16 05:33 Add Manual Diff Complete 08/28/16 04:33 Total Counted 100 08/28/16 04:33 Seg Neutrophils % 89.5 % (40.0-70.0) H 09/02/16 05:33 Seg Neuts % (Manual) 87.0 % (40.0-70.0) H 08/28/16 04:33 Band Neutrophils % 10.0 % 08/28/16 04:33 Lymphocytes % (Manual) 2.0 % (13.4-35.0) L 08/28/16 04:33 Reactive Lymphs % (Man) 1.0 % 08/28/16 04:33 Monocytes % (Manual) 0 % (0.0-7.3) 08/28/16 04:33 Eosinophils % (Manual) 0 % (0.0-4.3) 08/28/16 04:33 Basophils % (Manual) 0 % (0.0-1.8) 08/28/16 04:33 Metamyelocytes % 0 % 08/28/16 04:33 Myelocytes % 0 % 08/28/16 04:33 Promyelocytes % 0 % 08/28/16 04:33 Blast Cells % 0 % 08/28/16 04:33 Nucleated RBC % Not Reportable 08/28/16 04:33 Seg Neutrophils # 5.3 K/mm3 (1.8-7.7) 09/02/16 05:33 Seg Neutrophils # Man 7.0 K/mm3 (1.8-7.7) 08/28/16 04:33 Band Neutrophils # 0.8 K/mm3 08/28/16 04:33 Lymphocytes # (Manual) 0.2 K/mm3 (1.2-5.4) L 08/28/16 04:33 Abs React Lymphs (Man) 0.1 K/mm3 08/28/16 04:33 Monocytes # (Manual) 0.0 K/mm3 (0.0-0.8) 08/28/16 04:33 Eosinophils # (Manual) 0.0 K/mm3 (0.0-0.4) 08/28/16 04:33 Basophils # (Manual) 0.0 K/mm3 (0.0-0.1) 08/28/16 04:33 Metamyelocytes # 0.0 K/mm3 08/28/16 04:33 Myelocytes # 0.0 K/mm3 08/28/16 04:33 Promyelocytes # 0.0 K/mm3 08/28/16 04:33 Blast Cells # 0.0 K/mm3 08/28/16 04:33 WBC Morphology Not Reportable 08/28/16 04:33 Hypersegmented Neuts Not Reportable 08/28/16 04:33 Hyposegmented Neuts Not Reportable 08/28/16 04:33 Hypogranular Neuts Not Reportable 08/28/16 04:33 Smudge Cells Not Reportable 08/28/16 04:33 Toxic Granulation Not Reportable 08/28/16 04:33 Toxic Vacuolation Not Reportable 08/28/16 04:33 Dohle Bodies Not Reportable 08/28/16 04:33 Pelger-Huet Anomaly Not Reportable 08/28/16 04:33 José Miguel Rods Not Reportable 08/28/16 04:33 Platelet Estimate Appears normal 08/28/16 04:33 Clumped Platelets Not Reportable 08/28/16 04:33 Plt Clumps, EDTA Not Reportable 08/28/16 04:33 Large Platelets Not Reportable 08/28/16 04:33 Giant Platelets Not Reportable 08/28/16 04:33 Platelet Satelliting Not Reportable 08/28/16 04:33 Plt Morphology Comment Not Reportable 08/28/16 04:33 RBC Morphology Not Reportable 08/28/16 04:33 Dimorphic RBCs Not Reportable 08/28/16 04:33 Polychromasia Few 08/28/16 04:33 Hypochromasia Not Reportable 08/28/16 04:33 Poikilocytosis Not Reportable 08/28/16 04:33 Anisocytosis 1+ 08/28/16 04:33 Microcytosis Not Reportable 08/28/16 04:33 Macrocytosis Not Reportable 08/28/16 04:33 Spherocytes Not Reportable 08/28/16 04:33 Pappenheimer Bodies Not Reportable 08/28/16 04:33 Sickle Cells Not Reportable 08/28/16 04:33 Target Cells Not Reportable 08/28/16 04:33 Tear Drop Cells Not Reportable 08/28/16 04:33 Ovalocytes Not Reportable 08/28/16 04:33 Helmet Cells Not Reportable 08/28/16 04:33 [place] Bodies Not Reportable 08/28/16 04:33 [place] Rings Not Reportable 08/28/16 04:33 [place] Cells Not Reportable 08/28/16 04:33 Bite Cells Not Reportable 08/28/16 04:33 Crenated Cell Not Reportable 08/28/16 04:33 Elliptocytes Not Reportable 08/28/16 04:33 Acanthocytes (Spur) Not Reportable 08/28/16 04:33 Rouleaux Not Reportable 08/28/16 04:33 Hemoglobin C Crystals Not Reportable 08/28/16 04:33 Schistocytes Not Reportable 08/28/16 04:33 Malaria parasites Not Reportable 08/28/16 04:33 [place] Bodies Not Reportable 08/28/16 04:33 Hem Pathologist Commnt No 08/28/16 04:33 PT 13.6 Sec. (12.2-14.9) 08/27/16 03:55 INR 1.05 (0.87-1.13) 08/27/16 03:55 APTT 29.3 Sec. (24.2-36.6) 08/27/16 03:55 POC ABG pH 7.301 (7.35-7.45) L 08/27/16 04:29 POC ABG pCO2 61.7 (35-45) H 08/27/16 04:29 POC ABG pO2 113 (80-105) H 08/27/16 04:29 POC ABG HCO3 30.5 08/27/16 04:29 POC ABG Total CO2 32 08/27/16 04:29 POC ABG O2 Sat 98 08/27/16 04:29 POC ABG Base Excess 4 08/27/16 04:29 FiO2 50 % 08/27/16 04:29 Sodium 143 mmol/L (137-145) 09/02/16 05:33 Potassium 4.4 mmol/L (3.6-5.0) 09/02/16 05:33 Chloride 98.1 mmol/L (98-107) 09/02/16 05:33 Carbon Dioxide 36 mmol/L (22-30) H 09/02/16 05:33 Anion Gap 13 mmol/L 09/02/16 05:33 BUN 25 mg/dL (7-17) H 09/02/16 05:33 Creatinine 0.6 mg/dL (0.7-1.2) L 09/02/16 05:33 Estimated GFR > 60 ml/min 09/02/16 05:33 BUN/Creatinine Ratio 41.66 % 09/02/16 05:33 Glucose 134 mg/dL (65-100) H 09/02/16 05:33 POC Glucose 237 (70-105) H 09/04/16 11:08 Hemoglobin A1c 6.2 % (4-6) H 08/27/16 03:55 Calcium 8.6 mg/dL (8.4-10.2) 09/02/16 05:33 Magnesium 2.90 mg/dL (1.7-2.3) H 08/29/16 06:01 Total Bilirubin < 0.20 mg/dL (0.1-1.2) 08/28/16 04:33 AST 24 units/L (5-40) 08/28/16 04:33 ALT < 5 units/L (7-56) L 08/28/16 04:33 Alkaline Phosphatase 57 units/L (35-129) 08/28/16 04:33 Total Creatine Kinase 260 units/L (30-135) H 08/27/16 13:17 CK-MB (CK-2) 5.7 ng/mL (0.0-4.0) H 08/27/16 13:17 CK-MB (CK-2) Rel Index 2.1 (0-4) 08/27/16 13:17 Troponin T 0.027 ng/mL (0.00-0.029) 08/27/16 13:17 NT-Pro-B Natriuret Pep 1037 pg/mL (0-900) H 08/27/16 03:55 Total Protein 6.9 g/dL (6.3-8.2) 08/28/16 04:33 Albumin 3.5 g/dL (3.9-5) L 08/28/16 04:33 Albumin/Globulin Ratio 1.0 % 08/28/16 04:33 Triglycerides 65 mg/dL (2-149) 08/27/16 03:55 Cholesterol 122 mg/dL (50-199) 08/27/16 03:55 LDL Cholesterol Direct 60 mg/dL (50-130) 08/27/16 03:55 HDL Cholesterol 49 mg/dL (40-59) 08/27/16 03:55 Cholesterol/HDL Ratio 2.48 % 08/27/16 03:55 TSH 0.244 mlU/mL (0.270-4.200) L 08/27/16 03:55 Free T4 1.28 ng/dL (0.76-1.46) 08/27/16 03:55 Urine Color Yellow (Yellow) 08/27/16 06:41 Urine Turbidity Clear (Clear) 08/27/16 06:41 Urine pH 5.0 (5.0-7.0) 08/27/16 06:41 Ur Specific [place] 1.033 (1.003-1.030) H 08/27/16 06:41 Urine Protein 100 mg/dl mg/dL (Negative) 08/27/16 06:41 Urine Glucose (UA) Neg mg/dL (Negative) 08/27/16 06:41 Urine Ketones Neg mg/dL (Negative) 08/27/16 06:41 Urine Blood Neg (Negative) 08/27/16 06:41 Urine Nitrite Neg (Negative) 08/27/16 06:41 Urine Bilirubin Neg (Negative) 08/27/16 06:41 Urine Urobilinogen < 2.0 mg/dL (<2.0) 08/27/16 06:41 Ur Leukocyte Esterase Neg (Negative) 08/27/16 06:41 Urine WBC (Auto) 4.0 /HPF (0.0-6.0) 08/27/16 06:41 Urine RBC (Auto) 5.0 /HPF (0.0-6.0) 08/27/16 06:41 U Epithel Cells (Auto) 3.0 /HPF (0-13.0) 08/27/16 06:41 Granular Casts 3 /LPF 08/27/16 06:41 Urine Mucus Few /HPF 08/27/16 06:41
[2016-09-04] MEDS: THEO-24 PO SCH (21:55)
[2016-09-04] MEDS: LOVENOX SUB-Q SCH (21:56)
[2016-09-05] MEDS: DUONEB 0.5 MG-3 MG/3 ML SOLN IH SCH ×3 (04:14→14:50)
[2016-09-05 04:55] LABS: Hematocrit 37.7 % (30.3-42.9); Hemoglobin 12.2 gm/dl (10.1-14.3); Mean Corpuscular HGB Conc 33 % (30-34); Mean Corpuscular Hemoglobin 27 pg (28-32); Mean Corpuscular Volume 82 fl (79-97); Platelet Count 259 K/mm3 (140-440); Red Blood Count 4.57 M/mm3 (3.65-5.03); White Blood Count 9.6 K/mm3 (4.5-11.0)
[2016-09-05 05:28] LABS: Anion Gap 15 mmol/L; BUN/Creatinine Ratio 43.33; Blood Urea Nitrogen 26 mg/dL (7-17); Calcium 7.9 mg/dL (8.4-10.2); Carbon Dioxide 32 mmol/L (22-30); Chloride 95.8 mmol/L (98-107); Glucose 194 mg/dL (65-100); Potassium 4.1 mmol/L (3.6-5.0); Sodium 139 mmol/L (137-145)
[2016-09-05] MEDS: CALAN SR PO SCH (09:18)
[2016-09-05] MEDS: celeXA PO SCH (09:19)
[2016-09-05] MEDS: MUCINEX ER PO SCH (09:20)
[2016-09-05] MEDS: LEVAQUIN PO SCH (09:21)
[2016-09-05] MEDS: PULMICORT IH SCH (09:45)
[2016-09-05] MEDS: BROVANA NEBU IH SCH (09:46)
--- NOTE | 2016-09-05 10:35 | Progress Note ---
Assessment and Plan Assessment and plan: Acute on chronic hypercapnic respiratory failure due to COPD exacerbation. COPD exacerbation. Solu Medrol iv, DuoNeb when necessary, Pulmicort. Needing high amounts of oxygen on high flow oxygen by nasal cannula. Saturation of 98% on 2 L/m high flow nasal cannula . Needs LTAC placement Obstructive sleep apnea. Pulm following Elevated troponin Spiculated left upper lobe mass suspicious for malignancy. For out patient follow-up Full code status. History Interval history: less shortness of breath, no chest pain Hospitalist Physical - Physical exam Narrative exam: Gen appearance: Not in acute distress,obese HEENT: Normocephalic, atraumatic Neck:supple, no JVD Lungs : Decreased breath sounds bilaterally, bilateral rhonchi, Heart :S1-S2 regular, no murmurs, rubs or gallop Abdomen: soft non-tender, non-distended,normal bowel sounds Extremities:no edema, no clubbing or cyanosis, Neuro: Awake alert oriented 3, no focal neurological signs - Constitutional Vitals: Temp Pulse Resp BP Pulse Ox 97.6 F 70 20 163/99 100 09/05/16 09:01 09/05/16 09:18 09/05/16 09:01 09/05/16 09:18 09/05/16 09:01 General appearance: Present: no acute distress, other (BiPAP in place; denies any shortness of breath) Results - Labs CBC & Chem 7: 09/05/16 04:30 09/05/16 04:30 Labs: Laboratory Last Values WBC 9.6 K/mm3 (4.5-11.0) 09/05/16 04:30 RBC 4.57 M/mm3 (3.65-5.03) 09/05/16 04:30 Hgb 12.2 gm/dl (10.1-14.3) 09/05/16 04:30 Hct 37.7 % (30.3-42.9) 09/05/16 04:30 MCV 82 fl (79-97) 09/05/16 04:30 MCH 27 pg (28-32) L 09/05/16 04:30 MCHC 33 % (30-34) 09/05/16 04:30 RDW 15.0 % (13.2-15.2) 09/05/16 04:30 Plt Count 259 K/mm3 (140-440) 09/05/16 04:30 Lymph % (Auto) 7.4 % (13.4-35.0) L 09/02/16 05:33 [place] % (Auto) 3.0 % (0.0-7.3) 09/02/16 05:33 Eos % (Auto) 0.0 % (0.0-4.3) 09/02/16 05:33 Baso % (Auto) 0.1 % (0.0-1.8) 09/02/16 05:33 Lymph # 0.4 K/mm3 (1.2-5.4) L 09/02/16 05:33 [place] # 0.2 K/mm3 (0.0-0.8) 09/02/16 05:33 Eos # 0.0 K/mm3 (0.0-0.4) 09/02/16 05:33 Baso # 0.0 K/mm3 (0.0-0.1) 09/02/16 05:33 Add Manual Diff Complete 08/28/16 04:33 Total Counted 100 08/28/16 04:33 Seg Neutrophils % 89.5 % (40.0-70.0) H 09/02/16 05:33 Seg Neuts % (Manual) 87.0 % (40.0-70.0) H 08/28/16 04:33 Band Neutrophils % 10.0 % 08/28/16 04:33 Lymphocytes % (Manual) 2.0 % (13.4-35.0) L 08/28/16 04:33 Reactive Lymphs % (Man) 1.0 % 08/28/16 04:33 Monocytes % (Manual) 0 % (0.0-7.3) 08/28/16 04:33 Eosinophils % (Manual) 0 % (0.0-4.3) 08/28/16 04:33 Basophils % (Manual) 0 % (0.0-1.8) 08/28/16 04:33 Metamyelocytes % 0 % 08/28/16 04:33 Myelocytes % 0 % 08/28/16 04:33 Promyelocytes % 0 % 08/28/16 04:33 Blast Cells % 0 % 08/28/16 04:33 Nucleated RBC % Not Reportable 08/28/16 04:33 Seg Neutrophils # 5.3 K/mm3 (1.8-7.7) 09/02/16 05:33 Seg Neutrophils # Man 7.0 K/mm3 (1.8-7.7) 08/28/16 04:33 Band Neutrophils # 0.8 K/mm3 08/28/16 04:33 Lymphocytes # (Manual) 0.2 K/mm3 (1.2-5.4) L 08/28/16 04:33 Abs React Lymphs (Man) 0.1 K/mm3 08/28/16 04:33 Monocytes # (Manual) 0.0 K/mm3 (0.0-0.8) 08/28/16 04:33 Eosinophils # (Manual) 0.0 K/mm3 (0.0-0.4) 08/28/16 04:33 Basophils # (Manual) 0.0 K/mm3 (0.0-0.1) 08/28/16 04:33 Metamyelocytes # 0.0 K/mm3 08/28/16 04:33 Myelocytes # 0.0 K/mm3 08/28/16 04:33 Promyelocytes # 0.0 K/mm3 08/28/16 04:33 Blast Cells # 0.0 K/mm3 08/28/16 04:33 WBC Morphology Not Reportable 08/28/16 04:33 Hypersegmented Neuts Not Reportable 08/28/16 04:33 Hyposegmented Neuts Not Reportable 08/28/16 04:33 Hypogranular Neuts Not Reportable 08/28/16 04:33 Smudge Cells Not Reportable 08/28/16 04:33 Toxic Granulation Not Reportable 08/28/16 04:33 Toxic Vacuolation Not Reportable 08/28/16 04:33 Dohle Bodies Not Reportable 08/28/16 04:33 Pelger-Huet Anomaly Not Reportable 08/28/16 04:33 José Miguel Rods Not Reportable 08/28/16 04:33 Platelet Estimate Appears normal 08/28/16 04:33 Clumped Platelets Not Reportable 08/28/16 04:33 Plt Clumps, EDTA Not Reportable 08/28/16 04:33 Large Platelets Not Reportable 08/28/16 04:33 Giant Platelets Not Reportable 08/28/16 04:33 Platelet Satelliting Not Reportable 08/28/16 04:33 Plt Morphology Comment Not Reportable 08/28/16 04:33 RBC Morphology Not Reportable 08/28/16 04:33 Dimorphic RBCs Not Reportable 08/28/16 04:33 Polychromasia Few 08/28/16 04:33 Hypochromasia Not Reportable 08/28/16 04:33 Poikilocytosis Not Reportable 08/28/16 04:33 Anisocytosis 1+ 08/28/16 04:33 Microcytosis Not Reportable 08/28/16 04:33 Macrocytosis Not Reportable 08/28/16 04:33 Spherocytes Not Reportable 08/28/16 04:33 Pappenheimer Bodies Not Reportable 08/28/16 04:33 Sickle Cells Not Reportable 08/28/16 04:33 Target Cells Not Reportable 08/28/16 04:33 Tear Drop Cells Not Reportable 08/28/16 04:33 Ovalocytes Not Reportable 08/28/16 04:33 Helmet Cells Not Reportable 08/28/16 04:33 Steward-Barnhart Bodies Not Reportable 08/28/16 04:33 [place] Rings Not Reportable 08/28/16 04:33 [place] Cells Not Reportable 08/28/16 04:33 Bite Cells Not Reportable 08/28/16 04:33 Crenated Cell Not Reportable 08/28/16 04:33 Elliptocytes Not Reportable 08/28/16 04:33 Acanthocytes (Spur) Not Reportable 08/28/16 04:33 Rouleaux Not Reportable 08/28/16 04:33 Hemoglobin C Crystals Not Reportable 08/28/16 04:33 Schistocytes Not Reportable 08/28/16 04:33 Malaria parasites Not Reportable 08/28/16 04:33 Popeye Bodies Not Reportable 08/28/16 04:33 Hem Pathologist Commnt No 08/28/16 04:33 PT 13.6 Sec. (12.2-14.9) 08/27/16 03:55 INR 1.05 (0.87-1.13) 08/27/16 03:55 APTT 29.3 Sec. (24.2-36.6) 08/27/16 03:55 POC ABG pH 7.301 (7.35-7.45) L 08/27/16 04:29 POC ABG pCO2 61.7 (35-45) H 08/27/16 04:29 POC ABG pO2 113 (80-105) H 08/27/16 04:29 POC ABG HCO3 30.5 08/27/16 04:29 POC ABG Total CO2 32 08/27/16 04:29 POC ABG O2 Sat 98 08/27/16 04:29 POC ABG Base Excess 4 08/27/16 04:29 FiO2 50 % 08/27/16 04:29 Sodium 139 mmol/L (137-145) 09/05/16 04:30 Potassium 4.1 mmol/L (3.6-5.0) 09/05/16 04:30 Chloride 95.8 mmol/L (98-107) L 09/05/16 04:30 Carbon Dioxide 32 mmol/L (22-30) H 09/05/16 04:30 Anion Gap 15 mmol/L 09/05/16 04:30 BUN 26 mg/dL (7-17) H 09/05/16 04:30 Creatinine 0.6 mg/dL (0.7-1.2) L 09/05/16 04:30 Estimated GFR > 60 ml/min 09/05/16 04:30 BUN/Creatinine Ratio 43.33 % 09/05/16 04:30 Glucose 194 mg/dL (65-100) H 09/05/16 04:30 POC Glucose 190 (70-105) H 09/05/16 05:37 Hemoglobin A1c 6.2 % (4-6) H 08/27/16 03:55 Calcium 7.9 mg/dL (8.4-10.2) L 09/05/16 04:30 Magnesium 2.90 mg/dL (1.7-2.3) H 08/29/16 06:01 Total Bilirubin < 0.20 mg/dL (0.1-1.2) 08/28/16 04:33 AST 24 units/L (5-40) 08/28/16 04:33 ALT < 5 units/L (7-56) L 08/28/16 04:33 Alkaline Phosphatase 57 units/L (35-129) 08/28/16 04:33 Total Creatine Kinase 260 units/L (30-135) H 08/27/16 13:17 CK-MB (CK-2) 5.7 ng/mL (0.0-4.0) H 08/27/16 13:17 CK-MB (CK-2) Rel Index 2.1 (0-4) 08/27/16 13:17 Troponin T 0.027 ng/mL (0.00-0.029) 08/27/16 13:17 NT-Pro-B Natriuret Pep 1037 pg/mL (0-900) H 08/27/16 03:55 Total Protein 6.9 g/dL (6.3-8.2) 08/28/16 04:33 Albumin 3.5 g/dL (3.9-5) L 08/28/16 04:33 Albumin/Globulin Ratio 1.0 % 08/28/16 04:33 Triglycerides 65 mg/dL (2-149) 08/27/16 03:55 Cholesterol 122 mg/dL (50-199) 08/27/16 03:55 LDL Cholesterol Direct 60 mg/dL (50-130) 08/27/16 03:55 HDL Cholesterol 49 mg/dL (40-59) 08/27/16 03:55 Cholesterol/HDL Ratio 2.48 % 08/27/16 03:55 TSH 0.244 mlU/mL (0.270-4.200) L 08/27/16 03:55 Free T4 1.28 ng/dL (0.76-1.46) 08/27/16 03:55 Urine Color Yellow (Yellow) 08/27/16 06:41 Urine Turbidity Clear (Clear) 08/27/16 06:41 Urine pH 5.0 (5.0-7.0) 08/27/16 06:41 Ur Specific [place] 1.033 (1.003-1.030) H 08/27/16 06:41 Urine Protein 100 mg/dl mg/dL (Negative) 08/27/16 06:41 Urine Glucose (UA) Neg mg/dL (Negative) 08/27/16 06:41 Urine Ketones Neg mg/dL (Negative) 08/27/16 06:41 Urine Blood Neg (Negative) 08/27/16 06:41 Urine Nitrite Neg (Negative) 08/27/16 06:41 Urine Bilirubin Neg (Negative) 08/27/16 06:41 Urine Urobilinogen < 2.0 mg/dL (<2.0) 08/27/16 06:41 Ur Leukocyte Esterase Neg (Negative) 08/27/16 06:41 Urine WBC (Auto) 4.0 /HPF (0.0-6.0) 08/27/16 06:41 Urine RBC (Auto) 5.0 /HPF (0.0-6.0) 08/27/16 06:41 U Epithel Cells (Auto) 3.0 /HPF (0-13.0) 08/27/16 06:41 Granular Casts 3 /LPF 08/27/16 06:41 Urine Mucus Few /HPF 08/27/16 06:41
--- NOTE | 2016-09-05 12:06 | Progress Note ---
Assessment and Plan COPD exacerbation. Controlled. Severe advanced centrilobular/bullous emphysema Acute bronchitis.Controlled,resolved A/C respiratory failure, hypoxia and hypercapnea. Tolerating NC oxygen RML atelectasis, EFRAÍN pulm nodule. Suspicious for malignancy, needs further workup Rec: NC 3 LPM Physical therapy Continue DURGA nebulizer therapy prn Combination therapy with an LABA/LAMA treatment,can use Anoro 1 inh qd May benefit from ICS 1-2/day Daliresp 500 mg qd Outpatient f/u CT /PET evaluation. Scheduled to see at the end of the month. Will sign off Discussed with patient in detail. All questions answered. Subjective Date of service: 09/05/16 Principal diagnosis: A/C respiratory failure. COPD with exacerbation, pulmonary nodule suspicio Interval history: Feels better. On NC 3 LPM since yesterday,well tolerated,able to walk the hallway Objective Vital Signs - 12hr 09/05/16 09/05/16 09/05/16 04:00 05:49 09:01 Temperature 97.5 F L 97.6 F Pulse Rate 77 Pulse Rate [ 70 Left Radial] Pulse Rate [ 79 Right Radial] Respiratory 20 20 Rate Blood Pressure Blood Pressure 163/99 [Left Arm] Blood Pressure 151/87 [Right Radial Artery] O2 Sat by Pulse 100 100 Oximetry 09/05/16 09:18 Temperature Pulse Rate 70 Pulse Rate [ Left Radial] Pulse Rate [ Right Radial] Respiratory Rate Blood Pressure 163/99 Blood Pressure [Left Arm] Blood Pressure [Right Radial Artery] O2 Sat by Pulse Oximetry Constitutional: alert, other (on hf 20lpm 30%) Eyes: non-icteric ENT: oropharynx moist Neck: supple Effort: mildly labored Ascultation: Bilateral: clear, diminished breath sounds Cardiovascular: regular rate and rhythm Gastrointestinal: normoactive bowel sounds, soft, non-tender, non-distended Integumentary: normal Extremities: no cyanosis, no edema, pink and warm Neurologic: normal mental status, non-focal exam Psychiatric: mood appropriate, affect normal CBC and BMP: 09/05/16 04:30 09/05/16 04:30 ABG, PT/INR, D-dimer: ABG POC ABG pH 7.301 (7.35-7.45) L 08/27/16 04:29 POC ABG pCO2 61.7 (35-45) H 08/27/16 04:29 POC ABG pO2 113 (80-105) H 08/27/16 04:29 POC ABG HCO3 30.5 08/27/16 04:29 POC ABG Total CO2 32 08/27/16 04:29 POC ABG O2 Sat 98 08/27/16 04:29 PT/INR, D-dimer PT 13.6 Sec. (12.2-14.9) 08/27/16 03:55 INR 1.05 (0.87-1.13) 08/27/16 03:55 Abnormal lab findings: Abnormal Labs 08/27/16 08/27/16 08/27/16 06:41 08:13 13:17 MCH RDW Lymph % (Auto) [place] % (Auto) Lymph # [place] # Seg Neutrophils % Seg Neuts % (Manual) Lymphocytes % (Manual) Lymphocytes # (Manual) Chloride Carbon Dioxide BUN Creatinine Glucose POC Glucose Calcium Magnesium ALT Total Creatine Kinase 261 H 260 H CK-MB (CK-2) 6.5 H 5.7 H Troponin T 0.067 H Albumin Ur Specific [place] 1.033 H 08/28/16 08/28/16 08/29/16 04:33 04:33 06:01 MCH 27 L 27 L RDW 15.7 H 15.9 H Lymph % (Auto) 10.5 L [place] % (Auto) Lymph # 0.9 L [place] # Seg Neutrophils % 84.6 H Seg Neuts % (Manual) 87.0 H Lymphocytes % (Manual) 2.0 L Lymphocytes # (Manual) 0.2 L Chloride Carbon Dioxide 31 H BUN 24 H Creatinine Glucose 156 H POC Glucose Calcium Magnesium ALT < 5 L Total Creatine Kinase CK-MB (CK-2) Troponin T Albumin 3.5 L Ur Specific [place] 08/29/16 08/29/16 08/29/16 06:01 06:01 17:56 MCH RDW Lymph % (Auto) [place] % (Auto) Lymph # [place] # Seg Neutrophils % Seg Neuts % (Manual) Lymphocytes % (Manual) Lymphocytes # (Manual) Chloride Carbon Dioxide 35 H BUN 34 H Creatinine Glucose 102 H POC Glucose 210 H Calcium 8.3 L Magnesium 2.90 H ALT Total Creatine Kinase CK-MB (CK-2) Troponin T Albumin Ur Specific [place] 08/30/16 08/30/16 08/30/16 03:37 03:37 05:53 MCH 26 L RDW 15.8 H Lymph % (Auto) 11.8 L [place] % (Auto) 13.4 H Lymph # 1.0 L [place] # 1.2 H Seg Neutrophils % 74.7 H Seg Neuts % (Manual) Lymphocytes % (Manual) Lymphocytes # (Manual) Chloride Carbon Dioxide 36 H BUN 27 H Creatinine 0.6 L Glucose 123 H POC Glucose 129 H Calcium 8.3 L Magnesium ALT Total Creatine Kinase CK-MB (CK-2) Troponin T Albumin Ur Specific [place] 08/30/16 08/30/16 08/30/16 12:03 18:20 23:32 MCH RDW Lymph % (Auto) [place] % (Auto) Lymph # [place] # Seg Neutrophils % Seg Neuts % (Manual) Lymphocytes % (Manual) Lymphocytes # (Manual) Chloride Carbon Dioxide BUN Creatinine Glucose POC Glucose 141 H 161 H 182 H Calcium Magnesium ALT Total Creatine Kinase CK-MB (CK-2) Troponin T Albumin Ur Specific [place] 08/31/16 08/31/16 08/31/16 05:35 05:44 05:44 MCH 26 L RDW Lymph % (Auto) 10.0 L [place] % (Auto) 7.9 H Lymph # 0.7 L [place] # Seg Neutrophils % 82.0 H Seg Neuts % (Manual) Lymphocytes % (Manual) Lymphocytes # (Manual) Chloride Carbon Dioxide 36 H BUN 23 H Creatinine 0.5 L Glucose 126 H POC Glucose 122 H Calcium 8.0 L Magnesium ALT Total Creatine Kinase CK-MB (CK-2) Troponin T Albumin Ur Specific [place] 08/31/16 08/31/16 08/31/16 07:32 11:51 14:36 MCH RDW Lymph % (Auto) [place] % (Auto) Lymph # [place] # Seg Neutrophils % Seg Neuts % (Manual) Lymphocytes % (Manual) Lymphocytes # (Manual) Chloride Carbon Dioxide BUN Creatinine Glucose POC Glucose 126 H 113 H 137 H Calcium Magnesium ALT Total Creatine Kinase CK-MB (CK-2) Troponin T Albumin Ur Specific [place] 09/01/16 09/01/16 09/01/16 01:04 05:07 11:22 MCH RDW Lymph % (Auto) [place] % (Auto) Lymph # [place] # Seg Neutrophils % Seg Neuts % (Manual) Lymphocytes % (Manual) Lymphocytes # (Manual) Chloride Carbon Dioxide BUN Creatinine Glucose POC Glucose 188 H 137 H 209 H Calcium Magnesium ALT Total Creatine Kinase CK-MB (CK-2) Troponin T Albumin Ur Specific [place] 09/01/16 09/02/16 09/02/16 18:39 00:27 05:33 MCH 26 L RDW Lymph % (Auto) 7.4 L [place] % (Auto) Lymph # 0.4 L [place] # Seg Neutrophils % 89.5 H Seg Neuts % (Manual) Lymphocytes % (Manual) Lymphocytes # (Manual) Chloride Carbon Dioxide BUN Creatinine Glucose POC Glucose 240 H 251 H Calcium Magnesium ALT Total Creatine Kinase CK-MB (CK-2) Troponin T Albumin Ur Specific [place] 09/02/16 09/02/16 09/02/16 05:33 11:52 18:29 MCH RDW Lymph % (Auto) [place] % (Auto) Lymph # [place] # Seg Neutrophils % Seg Neuts % (Manual) Lymphocytes % (Manual) Lymphocytes # (Manual) Chloride Carbon Dioxide 36 H BUN 25 H Creatinine 0.6 L Glucose 134 H POC Glucose 196 H 219 H Calcium Magnesium ALT Total Creatine Kinase CK-MB (CK-2) Troponin T Albumin Ur Specific [place] 09/03/16 09/03/16 09/03/16 00:07 05:47 11:17 MCH RDW Lymph % (Auto) [place] % (Auto) Lymph # [place] # Seg Neutrophils % Seg Neuts % (Manual) Lymphocytes % (Manual) Lymphocytes # (Manual) Chloride Carbon Dioxide BUN Creatinine Glucose POC Glucose 212 H 211 H 249 H Calcium Magnesium ALT Total Creatine Kinase CK-MB (CK-2) Troponin T Albumin Ur Specific [place] 09/03/16 09/04/16 09/04/16 15:27 00:10 05:08 MCH RDW Lymph % (Auto) [place] % (Auto) Lymph # [place] # Seg Neutrophils % Seg Neuts % (Manual) Lymphocytes % (Manual) Lymphocytes # (Manual) Chloride Carbon Dioxide BUN Creatinine Glucose POC Glucose 169 H 259 H 129 H Calcium Magnesium ALT Total Creatine Kinase CK-MB (CK-2) Troponin T Albumin Ur Specific [place] 09/04/16 09/04/16 09/05/16 11:08 15:22 01:45 MCH RDW Lymph % (Auto) [place] % (Auto) Lymph # [place] # Seg Neutrophils % Seg Neuts % (Manual) Lymphocytes % (Manual) Lymphocytes # (Manual) Chloride Carbon Dioxide BUN Creatinine Glucose POC Glucose 237 H 200 H 222 H Calcium Magnesium ALT Total Creatine Kinase CK-MB (CK-2) Troponin T Albumin Ur Specific [place] 09/05/16 09/05/16 09/05/16 04:30 04:30 05:37 MCH 27 L RDW Lymph % (Auto) [place] % (Auto) Lymph # [place] # Seg Neutrophils % Seg Neuts % (Manual) Lymphocytes % (Manual) Lymphocytes # (Manual) Chloride 95.8 L Carbon Dioxide 32 H BUN 26 H Creatinine 0.6 L Glucose 194 H POC Glucose 190 H Calcium 7.9 L Magnesium ALT Total Creatine Kinase CK-MB (CK-2) Troponin T Albumin Ur Specific [place]
--- NOTE | 2016-09-05 15:00 | Discharge Summary ---
Providers - Providers Date of Admission: 08/27/16 06:24 Attending physician: ISACC RODRÍGUEZ 08/27/16 Consult to Cardiac Rehabilitation [CONS] Routine Reason For Exam: Phase I 08/27/16 15:31 Consult to Physician [CONS] Routine Consulting Provider: EMMA UMANZOR Reason For Exam: COPD exacerbation Place consult to:: Dr. Umanzor Notified:: Gretta GREEN Phone number called:: Was contact made?: Yes If yes, spoke with:: Jackie-Office Time called:: 16:19 08/29/16 14:52 Physical Therapy Evaluation and Treat [CONS] Routine Comment: Reason For Exam: skill level for SNF Primary care physician: [facility] Hospitalization Condition: Fair Disposition: DISCHARGED TO HOME OR SELFCARE - Discharge Diagnoses (1) COPD exacerbation Status: Acute Comment: Treated with bronchitis Bronchodilators and had resolved. (2) Hypertension Status: Chronic Qualifiers: Hypertension type: essential hypertension Qualified Code(s): I10 - Essential (primary) hypertension Comment: controlled (3) Acute and chronic respiratory failure ([id number]) Status: Acute Qualifiers: Respiratory failure complication: R Comment: Continue with home oxygen and bronchodilators. (4) Hyperthyroidism Status: Acute Comment: being follow up by apparel manager who had recommended that pt should not be on thyroud supplement for now Exam - Constitutional Vitals: Temp Pulse Resp BP Pulse Ox 97.8 F 89 18 152/85 99 09/05/16 13:28 09/05/16 13:28 09/05/16 13:28 09/05/16 13:28 09/05/16 13:28 Plan Activity: advance as tolerated Diet: low fat, low cholesterol, low salt Special Instructions: home health RN Additional Instructions: 1.Follow up with PCP in 1 week. 2.Follow up with Dr. Gooden in 1 week. 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 Gooden. 4.Continue home Oxygen at 3 l/min continuous Follow up with: PRIMARY CARE, [Primary Care Provider] - 3-5 Days Prescriptions: predniSONE [Deltasone] 20 mg PO QDAY 5 Days Theophylline Anhydrous ER [[place]-24] 400 mg PO QHS #30 capsule
[2016-09-05 18:14] VITALS: BP 159/88
[2016-09-05] MEDS: SINGULAIR PO SCH (18:50)
== END 2016-09-05 18:50 | disposition home or self-care (01) | DRG 189 ==
LOC: ED 03:38 → SUATTDRO 03:38 → 4A 06:24
PROVIDERS: ADMIT Internal Medicine; ATTEND Internal Medicine
PROC: 4A033R1 Measurement of Arterial Saturation, Peripheral, Percutaneous Approach (ICD-10-PCS; principal; 2016-08-27)
PROC: 5A09557 Assistance with Respiratory Ventilation, Greater than 96 Consecutive Hours, Continuous Positive Airway Pressure (ICD-10-PCS; 2016-08-29)
DX: J96.21 Acute and chronic respiratory failure with hypoxia (principal); J44.0 Chronic obstructive pulmonary disease with (acute) lower respiratory infection; I13.0 Hypertensive heart and chronic kidney disease with heart failure and stage 1 through stage 4 chronic kidney disease, or unspecified chronic kidney disease; J98.11 Atelectasis; N17.9 Acute kidney failure, unspecified; J44.1 Chronic obstructive pulmonary disease with (acute) exacerbation; J96.22 Acute and chronic respiratory failure with hypercapnia; G47.33 Obstructive sleep apnea (adult) (pediatric); R55 Syncope and collapse; F32.9 Major depressive disorder, single episode, unspecified; M19.90 Unspecified osteoarthritis, unspecified site; F41.9 Anxiety disorder, unspecified; K21.9 Gastro-esophageal reflux disease without esophagitis; N18.9 Chronic kidney disease, unspecified; E11.22 Type 2 diabetes mellitus with diabetic chronic kidney disease; I50.9 Heart failure, unspecified; R00.0 Tachycardia, unspecified; F17.210 Nicotine dependence, cigarettes, uncomplicated; R91.8 Other nonspecific abnormal finding of lung field; G89.29 Other chronic pain; J20.9 Acute bronchitis, unspecified; R91.1 Solitary pulmonary nodule; Z79.899 Other long term (current) drug therapy; Z99.81 Dependence on supplemental oxygen; Z82.49 Family history of ischemic heart disease and other diseases of the circulatory system
CPT/HCPCS: 36415; 71010; 71275; 80048; 80053; 80061; 81001; 82550; 82553; 82803; 82962; 83036; 83735; 83880; 84439; 84443; 84484; 85007; 85025; 85027; 85610; 85730; 87040; 87400; 93005; 93010; 93306; 93880; 94640; 94660; 94760; 96360; G8978-GP; G8979-GP; J0360; J1170; J1650; J1956; J2920; J2930; J3475; J7030; Q9967